=== PATIENT | female | born 1955 | race Caucasian/White ===

== ENCOUNTER 2020-10-08 08:17 | Outpatient (CLI) | payer OTHER, MEDICARE, SELFPAY ==
--- NOTE | ~2020-10-08 | MM_ITS ---
EXAMINATION: MM screening charlie BI w nisha HISTORY: Screening TECHNIQUE: Craniocaudal and mediolateral oblique 3-D tomosynthesis images were obtained and synthetic 2-D images were generated. CAD analysis was submitted and interpreted. COMPARISON: No prior mammogram is available for comparison at this institution. BREAST PARENCHYMAL COMPOSITION: There are scattered areas of fibroglandular density. FINDINGS: There is no evidence of suspicious mass, calcification, or architectural distortion to sugg est malignancy in either breast. There has been no suspicious interval change. IMPRESSION: 1. No mammographic evidence of malignancy. 2. Recommend routine screening mammography in one year. BI-RADS Category 1: Negative Reviewed, dictated and finalized at location B. NCIAL RECRUITER
== END 2020-10-08 08:18 | disposition home or self-care (01) ==
LOC: ANHIMG 08:23
PROVIDERS: PCP Internal Medicine; Visit Provider Obstetrics & Gynecology
DX: Z12.31 Encounter for screening mammogram for malignant neoplasm of breast (principal)
CPT/HCPCS: 77063; 77067

== ENCOUNTER → 2021-05-01 07:41 | Outpatient (CLI) | payer OTHER, MEDICARE, SELFPAY ==
--- NOTE | ~2021-05-01 | US_ITS ---
EXAMINATION: US aorta [facility] DATE: 05/01/2021 08:08 INDICATION: Hypercholesterolemia, abdominal aortic aneurysm screening TECHNIQUE: Grayscale, color Doppler, and pulsed Doppler images of the aorta and common iliac arteries were obtained. COMPARISON: None. FINDINGS: Maximum vascular dimensions are as follows: Proximal aorta: 2.2 cm Mid aorta: 1.4 cm Distal aorta: 1.3 cm Right common iliac artery: 1.1 cm Left common iliac artery: 0.9 cm There is no evidence of abdominal aortic aneurysm. IMPRESSION: 1. No sonographically detected abdominal aortic aneurysm. Reviewed, dictated and finalized at location A.
== END ==
PROVIDERS: PCP Internal Medicine; Visit Provider Internal Medicine
DX: Z13.6 Encounter for screening for cardiovascular disorders (principal)
CPT/HCPCS: 76706

== ENCOUNTER 2021-05-01 08:30 | Outpatient (CLI) | payer OTHER, MEDICARE, SELFPAY ==
--- NOTE | 2021-05-01 08:46 | ECG_ITS ---
Measurements Intervals [place] Rate: 63 P: 35 CT: 176 QRS: 51 QRSD: 97 T: 36 QT: 385 QTc: 394 Interpretive Statements SINUS RHYTHM BASELINE ARTIFACT- I, II, III, AVR, AVL NORMAL ECG Electronically Signed On 05-01-2021 9:08:20 CDT by Ric Richardson D.O.
== END 2021-05-01 08:31 | disposition home or self-care (01) ==
LOC: ANHCARD 08:36
PROVIDERS: PCP Internal Medicine; Visit Provider Internal Medicine
DX: Z00.00 Encounter for general adult medical examination without abnormal findings (principal)
CPT/HCPCS: 93005

== ENCOUNTER 2022-01-02 20:52 | Emergency (ER) | payer OTHER, SELFPAY ==
--- NOTE | ~2022-01-02 | XR_ITS ---
EXAMINATION: XR chest 2V DATE: 01/02/2022 22:01 INDICATION: Transient alteration of awareness TECHNIQUE: PA and lateral views of the chest are obtained. COMPARISON: None available FINDINGS: The lungs are free of acute opacities. There is no pleural effusion or pneumothorax. There is a moderate-sized hiatal hernia. The heart size is normal. There is mild thoracic spondylosis. IMPRESSION: 1. No acute cardiopulmonary abnormality. 2. Moderate-sized hiatal hernia. Reviewed, dictated and finalized at location A.
[2022-01-02 20:58] VITALS: BP 131/80; PULSE 98; RESP 17; TEMP 36.6; O2SAT 96
--- NOTE | 2022-01-02 21:03 | ECG_ITS ---
Measurements Intervals [place] Rate: 82 P: 41 MN: 170 QRS: 54 QRSD: 105 T: 31 QT: 375 QTc: 441 Interpretive Statements SINUS RHYTHM NORMAL ECG Electronically Signed On 01-03-2022 8:50:56 CDT by Ric Richardson D.O.
--- NOTE | 2022-01-02 21:05 | ED.SYNCOPE ---
HPI - Syncope General Chief Complaint: Syncope Stated Complaint: syncopal episode x 2 orthostatic Time Seen by Provider: 01/02/22 20:56 History of Present Illness HPI narrative: 66-year-old female presents to the emergency room for evaluation of 2 syncopal episodes prior to arrival. Patient states that she was eating dinner with her family when she attempted to stand up and then she proceeded to pass out. Several minutes later patient was on the floor complaining of being nauseated, when she attempted to set up and again passed out. Patient states that following her episode of emesis, she felt better. Patient does not have any complaints at this time. Patient does state that she has a history of similar episodes. Related Data Allergies Allergy/AdvReac Type Severity Reaction Status Date / Time No Known Allergies Allergy Verified 01/02/22 21:02 Review of Systems Review of Systems: CONSTITUTIONAL: Denies fever, chills, or sweats. EYES: Denies visual changes, redness, or discharge. ENT: Denies rhinorrhea, congestion, sore throat, or otalgia. CARDIOVASCULAR: Denies chest pain, palpitations, or edema. RESPIRATORY: Denies cough or dyspnea. GASTROINTESTINAL: Denies abdominal pain, nausea, vomiting, or diarrhea. GENITOURINARY: Denies dysuria or hematuria. SKIN: Denies rash or itching. MUSCULOSKELETAL: Denies back pain, joint pain, or myalgia. NEUROLOGIC: Denies headache, numbness, dizziness, or weakness. PSYCHIATRIC: Denies anxiety or depression. [facility] Surgical History Surgical History H/O vaginal hysterectomy Family History Family History Mother , Age 80 - Alzheimer's Disease No problems noted. Father , Age 78 - Myocardial Infarction No problems noted. Grandparent , - Myocardial Infarction No problems noted. Grandparent , - Myocardial Infarction No problems noted. Grandparent , Age 80 - Alzheimer's Disease No problems noted. Grandparent , - Myocardial Infarction No problems noted. Sibling , Age 42 - Myocardial Infarction No problems noted. Sibling , Age 57 - Cancer No problems noted. Social History Social History (Reviewed 01/02/22 @ 21:06 by DAVID Eastman Smoking status: Never smoker Alcohol intake: current Drinks per week: 1 Alcohol use details: drinks beer/wine Substance use: never Exam Narrative: GENERAL: Well-appearing, well-nourished, and in no acute distress. HEAD: Normocephalic, atraumatic. EYES: PERRLA and EOMI. ENT: Nares clear, no rhinorrhea or epistaxis. Mucous membranes moist. CHEST: Clear to auscultation. No respiratory distress. No wheezes rales or rhonchi HEART: Regular rate and rhythm. No murmur heard. Normal peripheral pulses. ABDOMEN: Soft, nontender, nondistended, normal active bowel sounds. EXTREMITIES: Normal range of motion. No edema. SKIN: Warm, dry, no rash. NEURO: No focal deficits. Alert and oriented x3. PSYCH: Normal mood and affect. Course Vital Signs Vital signs: Vital Signs Temperature 36.6 C 01/02/22 20:58 Pulse Rate 98 01/02/22 20:58 Respiratory Rate 17 01/02/22 20:58 Blood Pressure 131/80 01/02/22 20:58 Pulse Oximetry 96 01/02/22 20:58 Temperature 36.6 C 01/02/22 20:58 Pulse Rate 98 01/02/22 20:58 Respiratory Rate 17 01/02/22 20:58 Blood Pressure 131/80 01/02/22 20:58 Pulse Oximetry 96 01/02/22 20:58 MDM - Syncope MDM Narrative Medical decision making narrative: 66-year-old female presented the emergency room with for evaluation of x2 syncopal episodes. Patient states that she had been experiencing some upper respiratory symptoms over the past couple of days. CBC and CMP were unremarkable. Trop
[2022-01-02 21:55] LABS: Basophils Percent Auto 0.3 % (0.2-1.2); Eosinophils Absolute Auto 0.2 K/mm3 (0-0.3); Eosinophils Percent Auto 2.1 % (0-4.4); Hematocrit 38.6 % (37.0-47.0); Hemoglobin 12.3 g/dL (12.0-15.0); Immature Granulocyte Absolute 0.02 K/mm3 (0.00-0.031); Immature Granulocyte Percent A 0.3 % (0-0.5); Lymphocytes Absolute Auto 1.16 K/mm3 (0.9-3.2); Lymphocytes Percent Auto 14.9 % (18.3-44.2); Mean Corpuscular HGB Conc 31.9 g/dl (32-36); Mean Corpuscular Hemoglobin 30.5 pg (26-34); Mean Corpuscular Volume 95.8 fl (80-100); Mean Platelet Volume 10.1 fl (7.4-10.4); Monocytes Absolute Auto 0.6 K/mm3 (0.1-0.6); Monocytes Percent Auto 7.3 % (2.6-8.5); Neutrophils Absolute Auto 5.8 K/mm3 (1.3-6.7); Neutrophils Percent Auto 75.1 % (45.5-73.1); Platelet Count Result 198 k/mm3 (150-375); Red Blood Count 4.03 M/mm3 (4.2-5.4); Red Cell Distribution Width 12.7 % (11.5-14.5); White Blood Count 7.8 K/mm3 (4.5-10.0)
[2022-01-02 22:04] LABS: Alanine Aminotransferase 15 U/L (4-35); Albumin Level 3.8 g/dL (3.5-5.1); Alkaline Phosphatase 125 U/L (38-126); Anion Gap 7 mmol/L (8-16); Aspartate Amino Transferase 25 U/L (14-36); Bilirubin,Total 0.5 mg/dL (0.2-1.3); Blood Urea Nitrogen 18 mg/dL (7-17); Calcium 7.7 mg/dL (8.4-10.2); Carbon Dioxide 23 mmol/L (22-30); Chloride 106 mmol/L (98-107); Estimated Glomerular Filt Rate > 60; Glucose 111 mg/dL (65-110); Potassium 3.6 mmol/L (3.4-5.0); Sodium 136 mmol/L (137-145)
[2022-01-02 22:16] LABS: Troponin I < 0.012 ng/mL (0.000-0.034)
[2022-01-02] MEDS: DOXYCYCLINE HYCLATE 100 MG TABLET PO (22:39)
[2022-01-02 22:46] VITALS: BP 145/75; PULSE 90; RESP 20; O2SAT 95
== END 2022-01-02 22:48 | disposition home or self-care (01) ==
PROVIDERS: Emergency Provider Nurse Practitioner Family; PCP Internal Medicine
DX: J18.9 Pneumonia, unspecified organism (principal)
CPT/HCPCS: 36415; 71046; 80053; 84484; 85025; 93005; 99284; A9270

== ENCOUNTER → 2022-01-11 12:01 | Outpatient (CLI) | payer OTHER, SELFPAY ==
--- NOTE | ~2022-01-11 | XR_ITS ---
XR chest 2V 01/11/2022 12:10 Indication: Shortness of breath Procedure: 2 view chest Comparison: 01/02/2022 Findings: Heart size normal. There is a moderate size hiatal hernia. No focal air space disease, pulm onary edema, pleural effusion or suspected pneumothorax. Impression: 1: No acute cardiopulmonary disease. 2: Moderate size hiatal hernia. Reviewed, dictated and finalized at location A. Impression: 1: No acute cardiopulmonary disease. 2: Moderate size hiatal hernia.
== END ==
PROVIDERS: PCP Internal Medicine; Visit Provider Internal Medicine
DX: R91.8 Other nonspecific abnormal finding of lung field (principal); K44.9 Diaphragmatic hernia without obstruction or gangrene
CPT/HCPCS: 71046

== ENCOUNTER 2022-05-28 08:02 | Outpatient (CLI) | payer OTHER, SELFPAY ==
[2022-05-28 21:09] LABS: Cholesterol 196 mg/dL (0-200); HDL Direct 65 mg/dL; Triglycerides 66 mg/dL (<150)
[2022-05-28 21:20] LABS: LDL Cholesterol Direct 101 mg/dL
== END 2022-05-28 08:03 | disposition home or self-care (01) ==
PROVIDERS: PCP Family Medicine; Visit Provider Family Medicine
DX: E78.5 Hyperlipidemia, unspecified (principal); E04.1 Nontoxic single thyroid nodule
CPT/HCPCS: 36415; 80061; 84443

== ENCOUNTER → 2022-05-28 08:13 | Outpatient (CLI) | payer OTHER, SELFPAY ==
--- NOTE | ~2022-05-28 | US_ITS ---
US thyroid INDICATION: Thyroid nodule TECHNIQUE: Real-time sonographic images of the thyroid gland were obtained. COMPARISON: No prior studies for comparison. FINDINGS: The right thyroid lobe measures 2.9 x 1 x 1.1 cm. The left thyroid lobe measures 3.9 x 1.7 x 1.9 cm. There are multiple bilateral thyroid nodules. Largest in the right lobe measures 10 x 9 x 7 mm and is hypoechoic, solid, wider than tall with smooth margins and no internal echogenic foci, TR 4. Largest dominant mass in the isthmus measures 2.2 x 1.8 x 0.8 cm and is solid, hypoechoic, wider than tall, smoothly marginated with no echogenic foci, TR 4. In the left lobe there is an oval 2.6 x 1.9 x 1.5 cm slightly hyperechoic mass which is wider than tall, irregular margins without echogenic foci, TR 4. IMPRESSION: 1. Masses in the left margin of the isthmus and the left thyroid lobe which may sonographic criteria for biopsy. Ultrasound-guided fine-needle aspiration recommended. Reviewed, dictated and finalized at location B. IMPRESSION: 1. Masses in the left margin of the isthmus and the left thyroid lobe which ma y sonographic criteria for biopsy. Ultrasound-guided fine-needle aspiration rec ommended.
== END ==
PROVIDERS: PCP Family Medicine; Visit Provider Family Medicine
DX: E04.1 Nontoxic single thyroid nodule (principal)
CPT/HCPCS: 76536

== ENCOUNTER 2022-06-08 12:22 | Outpatient (CLI) | payer OTHER, SELFPAY ==
--- NOTE | ~2022-06-08 | US_ITS ---
EXAMINATION: 1. US FNA w image guidance 2. US FNA additional DATE: 06/08/2022 14:52 INDICATION: Nontoxic single thyroid nodule. TECHNIQUE: The procedure and its benefits and risks were discussed with the patient. Risks specifically discusse d included bleeding. The patient verbalized understanding of the risks and agreed to proceed. The nec k was prepped and draped in the usual sterile manner. 1% lidocaine was used for local anesthesia. 6 passes were made with a 25G needle into the lesion in left thyroid lobe under ultrasound guidance. T he patient experienced nausea and vomiting. When the patient was feeling better, the neck was again prepped and draped in usual manner. 6 passes were made with a 25-gauge needle into the lesion in thyroid isthmus under ultrasound guidance. There were no immediate complications. FINDINGS: Grayscale ultrasound images demonstrate needles advanced into a 2.6 cm nodule in left thyroid lobe fo r biopsy. Grayscale images demonstrate needles advanced into a 2.2 cm nodule in thyroid isthmus for b iopsy. IMPRESSION: 1. Ultrasound-guided fine needle aspiration of a nodule in left thyroid lobe. 2. Ultrasound-guided fine-needle aspiration of a nodule in thyroid isthmus. Reviewed, dictated and finalized at location A. IMPRESSION: 1. Ultrasound-guided fine needle aspiration of a nodule in left thyroid lobe. 2. Ultrasound-guided fine-needle aspiration of a nodule in thyroid isthmus.
== END 2022-06-08 12:23 | disposition home or self-care (01) ==
PROVIDERS: PCP Family Medicine; Visit Provider Family Medicine
DX: E04.2 Nontoxic multinodular goiter (principal)
CPT/HCPCS: 10005; 10006; 88173; 88305

== ENCOUNTER 2022-06-21 07:51 | Outpatient (CLI) | payer OTHER, SELFPAY | END 2022-06-21 07:52 | disposition home or self-care (01) | LOC: ANHAUDASC 07:52 | PROVIDERS: PCP Family Medicine; Visit Provider Family Medicine | DX: H93.19 Tinnitus, unspecified ear (principal); H90.3 Sensorineural hearing loss, bilateral | CPT/HCPCS: 92557; 92567 ==

== ENCOUNTER 2022-07-28 01:26 | Day surgery (SDC) | payer OTHER, SELFPAY ==
[2022-07-13 11:03] VITALS: BMI 27.5
--- NOTE | 2022-07-27 07:27 | PM.HPGS ---
History of Present Illness History of Present Illness Consent: Risks, benefits, and alternatives have been discussed and questions answered. Patient agrees to proceed with procedure. Chief complaint: neoplasm screening Narrative: Mireya Duarte is a 67 year old female Referred for colon cancer screening. This is her 1st colonoscopy. Review of Systems Review of Systems: All systems reviewed & are unremarkable except as noted in HPI and below PMFSH Past Medical History Medical History HTN (hypertension) Hyperlipidemia LDL goal <130 Surgical History Surgical History H/O vaginal hysterectomy Family History Family History Mother , Age 80 - Alzheimer's Disease No problems noted. Father , Age 78 - Myocardial Infarction No problems noted. Grandparent , - Myocardial Infarction No problems noted. Grandparent , - Myocardial Infarction No problems noted. Grandparent , Age 80 - Alzheimer's Disease No problems noted. Grandparent , - Myocardial Infarction No problems noted. Sibling , Age 42 - Myocardial Infarction No problems noted. Sibling , Age 57 - Cancer No problems noted. Social History Social History Smoking status: Never smoker Alcohol intake: current Drinks per week: 1 Alcohol use details: drinks beer/wine Substance use: never Substance use type: does not use Living arrangements: with family Spiritual care concerns: No Meds Home Medications and Allergies Home Medications Medication Instructions Recorded Confirmed Type alendronate 70 mg tablet 70 mg PO WEEKLY #12 tabs 12/11/21 07/28/22 Rx lovastatin 20 mg tablet See Rx Instructions .Route 06/21/22 07/28/22 Rx .COMPLEX #90 tabs amlodipine 5 mg tablet 5 mg PO DAILY #30 tabs 06/22/22 07/28/22 Rx Calcium-Vitamin D 1 tab-cap PO DAILY 07/13/22 07/28/22 History L-Lysine Complex 1 tab-cap PO DAILY 07/13/22 07/28/22 History psyllium husk 0.4 gram capsule 0.4 g PO DAILY 07/13/22 07/28/22 History (Metamucil) Allergies Allergy/AdvReac Type Severity Reaction Status Date / Time No Known Allergies Allergy Verified 07/28/22 06:21 Exam Const: General: alert Orientation/consciousness: patient oriented x3 Resp: Auscultation: clear to auscultation bilaterally Cardio: Rhythm: regular rhythm GI: GI Palp: Yes Soft to palpation and No Tenderness to palpation present (GI) Neuro: General: patient oriented x3 Assessment and Plan Assessment and plan (1) Colon cancer screening: Code(s): Z12.11 - Encounter for screening for malignant neoplasm of colon Status: Acute Assessment and Plan: Colonoscopy with possible biopsy or polypectomy or cautery or injection of substances.
[2022-07-28 06:22] VITALS: BP 129/73; PULSE 81; RESP 16; TEMP 36.2; O2SAT 98
[2022-07-28] MEDS: LACTATED RINGERS 1,000 ML 150 ML IV CONT (06:24)
--- NOTE | 2022-07-28 07:10 | WPDANESEPPF ---
Anes - Initial Pre Proc Eval Procedure: Operation Date: 07/28/22 07:30 Proposed Procedures p Screening Colonoscopy - Nik Tarango MD Date/Time: 07/28/22 07:10 Surgeon: Nik Tarango MD Pre Op Diagnosis: neoplasm screening Patient Data Age: 67 Gender: F Height: 1.55 m Weight: 67.8 kg Last Vital Signs Temp 36.2 C L 07/28/22 06:22 Pulse 81 07/28/22 06:22 Resp 16 07/28/22 06:22 BP 129/73 07/28/22 06:22 Pulse Ox 98 07/28/22 06:22 O2 Del Method Room Air 07/28/22 06:22 Allergies Allergy/AdvReac Type Severity Reaction Status Date / Time No Known Allergies Allergy Verified 07/28/22 06:21 Home Medications Medication Instructions Recorded Confirmed Type alendronate 70 mg tablet 70 mg PO WEEKLY #12 tabs 12/11/21 07/28/22 Rx lovastatin 20 mg tablet See Rx Instructions .Route 06/21/22 07/28/22 Rx .COMPLEX #90 tabs amlodipine 5 mg tablet 5 mg PO DAILY #30 tabs 06/22/22 07/28/22 Rx Calcium-Vitamin D 1 tab-cap PO DAILY 07/13/22 07/28/22 History L-Lysine Complex 1 tab-cap PO DAILY 07/13/22 07/28/22 History psyllium husk 0.4 gram capsule 0.4 g PO DAILY 07/13/22 07/28/22 History (Metamucil) Patient hx anesthesia problems: none Family hx anesthesia problems: none Results Review: All pre-operative results and documents have been reviewed as part of the pre-operative evaluation. [facility] Past Medical History Medical History (Updated 07/28/22 @ 07:12 by Jose Mcneill MD) HTN (hypertension) Hyperlipidemia LDL goal <130 Surgical History Surgical History H/O vaginal hysterectomy Family History Family History Mother , Age 80 - Alzheimer's Disease No problems noted. Father , Age 78 - Myocardial Infarction No problems noted. Grandparent , - Myocardial Infarction No problems noted. Grandparent , - Myocardial Infarction No problems noted. Grandparent , Age 80 - Alzheimer's Disease No problems noted. Grandparent , - Myocardial Infarction No problems noted. Sibling , Age 42 - Myocardial Infarction No problems noted. Sibling , Age 57 - Cancer No problems noted. Social History Social History Smoking status: Never smoker Alcohol intake: current Drinks per week: 1 Alcohol use details: drinks beer/wine Substance use: never Substance use type: does not use Living arrangements: with family Spiritual care concerns: No Anes - Eval Final PreProcedure Day of Procedure 07/28/22 07:10 Patient weight: overweight Heart: regular rate and rhythm Lungs: clear to auscultation and normal air movement Airway: Mallampati scale class II Neurological: alert and oriented Last oral intake: >/= 8 hours ASA classification: II Emergent: no Anesthetic plan: proceed Anesthesia type and monitoring: general GIVS Results Review: All pre-operative results and documents have been reviewed as part of the pre-operative evaluation. Informed Consent: The patient's anesthetic plan and its attendant risks and benefits were discussed with the patient/family/POA. Questions were solicited and answers provided to the satisfaction of the patient/family/POA.
[2022-07-28 08:00] VITALS: BP 104/62; PULSE 73; RESP 23; O2SAT 100
[2022-07-28 08:10] VITALS: BP 116/72; PULSE 70; RESP 18; O2SAT 100
[2022-07-28 08:20] VITALS: BP 118/76; PULSE 69; RESP 21; O2SAT 100
== END 2022-07-28 08:26 | disposition home or self-care (01) ==
PROVIDERS: PCP Family Medicine; Visit Provider Internal Medicine Gastroenterology
PROC: 0DJD8ZZ Inspection of Lower Intestinal Tract, Via Natural or Artificial Opening Endoscopic (ICD-10-PCS; CPT 45378; principal; 2022-07-28 07:30)
DX: Z12.11 Encounter for screening for malignant neoplasm of colon (principal); D12.3 Benign neoplasm of transverse colon; K57.30 Diverticulosis of large intestine without perforation or abscess without bleeding; K64.8 Other hemorrhoids; I10 Essential (primary) hypertension; E78.5 Hyperlipidemia, unspecified
CPT/HCPCS: 45380; 88305; J2704; J7120

== ENCOUNTER 2023-05-05 15:14 | Outpatient (CLI) | payer OTHER, SELFPAY ==
[2023-05-05 19:05] LABS: Basophils Percent Auto 0.4 % (0.2-1.2); Eosinophils Absolute Auto 0.2 K/mm3 (0-0.3); Eosinophils Percent Auto 2.6 % (0-4.4); Hematocrit 30.4 % (37.0-47.0); Immature Granulocyte Absolute 0.02 K/mm3 (0.00-0.031); Immature Granulocyte Percent A 0.3 % (0-0.5); Lymphocytes Absolute Auto 1.66 K/mm3 (0.9-3.2); Lymphocytes Percent Auto 22.5 % (18.3-44.2); Mean Corpuscular HGB Conc 29.6 g/dl (32-36); Mean Corpuscular Hemoglobin 23.2 pg (26-34); Mean Corpuscular Volume 78.4 fl (80-100); Mean Platelet Volume 10.6 fl (7.4-10.4); Monocytes Absolute Auto 0.6 K/mm3 (0.1-0.6); Monocytes Percent Auto 8.1 % (2.6-8.5); Neutrophils Absolute Auto 4.9 K/mm3 (1.3-6.7); Neutrophils Percent Auto 66.1 % (45.5-73.1); Platelet Count Result 378 k/mm3 (150-375); Red Blood Count 3.88 M/mm3 (4.2-5.4); Red Cell Distribution Width 15.2 % (11.5-14.5); White Blood Count 7.4 K/mm3 (4.5-10.0)
[2023-05-05 19:07] LABS: Alanine Aminotransferase 21 U/L (6-35); Albumin Level 4.1 g/dL (3.5-5.1); Alkaline Phosphatase 101 U/L (38-126); Anion Gap 9 mmol/L (8-16); Aspartate Amino Transferase 36 U/L (14-36); Bilirubin,Total 0.6 mg/dL (0.2-1.3); Blood Urea Nitrogen 17 mg/dL (7-17); Calcium 9.2 mg/dL (8.4-10.2); Carbon Dioxide 27 mmol/L (22-30); Chloride 104 mmol/L (98-107); Cholesterol 188 mg/dL (0-200); Estimated Glomerular Filt Rate > 60; Glucose 108 mg/dL (65-110); HDL Direct 69 mg/dL; Sodium 140 mmol/L (137-145); Triglycerides 53 mg/dL (<150)
[2023-05-05 19:18] LABS: LDL Cholesterol Direct 84 mg/dL
[2023-05-05 19:39] LABS: Hypochromasia 1+ (NORMAL)
[2023-05-05 19:40] LABS: Ovalocytes 1+ (NORMAL); Schistocytes None Seen (NORMAL)
[2023-05-05 19:41] LABS: Appearance Urine Clear (Clear); Bacteria Urine None Seen /hpf; Bilirubin Urine Negative (Negative); Blood Urine Negative (Negative); Color Urine Yellow (Yellow); Glucose Urine UA Negative (Negative); Ketones Urine Negative (Negative); Leukocyte Esterase Ur 2+ LEU/UL (NEGATIVE); Need Manual Microscopic Reviewed; Nitrate Urine Negative (Negative); Non Pathogenic Casts 0-2; Protein Urine Negative (Negative); RBC Urine 0-2 /hpf (0-2); Specific Grav Ur 1.004 (1.001-1.035); Squamous Epithelial Cell Urine None seen /hpf (Few); Urobilinogen Urine 0.2 mg/dL (<2.0)
[2023-05-05 19:43] LABS: Add Urine Microscopic? YES
== END 2023-05-05 15:15 | disposition home or self-care (01) ==
LOC: ANHGOSHLAB 15:15
PROVIDERS: PCP Family Medicine; Visit Provider Family Medicine
DX: R53.83 Other fatigue (principal); R55 Syncope and collapse; Z13.228 Encounter for screening for other metabolic disorders; Z13.29 Encounter for screening for other suspected endocrine disorder; Z13.220 Encounter for screening for lipoid disorders
CPT/HCPCS: 36415; 80053; 80061; 81001; 84443; 85025

== ENCOUNTER 2023-05-06 12:43 | Outpatient (CLI) | payer OTHER, SELFPAY ==
[2023-05-06 18:56] LABS: Immature Reticulocyte Fraction 26.6 % (3.0-15.9); Reticulocyte Hemoglobin Conten 23.3 pg (28.2-35.7); Reticulocyte Percent 2.22 % (0.7-4.3); Reticulocytes Absolute 0.08 M/mm3 (0.02-0.1)
[2023-05-06 19:09] LABS: Iron 27 ug/dL (37-170)
[2023-05-06 19:25] LABS: Percent Iron Saturation 4 % (20-50)
[2023-05-06 19:43] LABS: Ferritin 4.74 ng/mL (11.1-264)
[2023-05-06 20:25] LABS: Folic Acid > 20.0 ng/mL (2.76->20)
== END 2023-05-06 12:44 | disposition home or self-care (01) ==
LOC: ANHGOSHLAB 12:45
PROVIDERS: PCP Family Medicine; Visit Provider Family Medicine
DX: D64.9 Anemia, unspecified (principal)
CPT/HCPCS: 36415; 82607; 82728; 82746; 83540; 83550; 85046

== ENCOUNTER 2023-05-09 08:33 | Outpatient (NON) | payer OTHER, SELFPAY ==
[2023-05-09 19:28] LABS: IFOB Positive Control Positive; Immunochemical Fecal Occult Bl Negative (N)
== END 2023-05-09 08:34 | disposition home or self-care (01) ==
PROVIDERS: PCP Family Medicine; Visit Provider Family Medicine
DX: D64.9 Anemia, unspecified (principal)
CPT/HCPCS: 82274

== ENCOUNTER 2023-05-13 13:37 | Outpatient (CLI) | payer OTHER, SELFPAY ==
--- NOTE | ~2023-05-13 | MR_ITS ---
EXAMINATION: MR brain/brain stem wo/w con DATE: 05/13/2023 14:17 INDICATION: Syncope and collapse. TECHNIQUE: Magnetic resonance imaging (MRI) of the brain and brainstem was performed without and with 13 mL MultiHance intravenous contrast. COMPARISON: None. FINDINGS: There are scattered areas of nonspecific increased T2-weighted signal intensity in the cere bral white matter and lucy, which is within normal limits for the patient's age. There is no intracra nial hemorrhage, acute infarction, or abnormal intracranial mass lesion. The ventricles are normal in size. The paranasal sinuses are clear. The orbits are normal. There are small bilateral mastoid effu sions. IMPRESSION: 1. Normal aging brain. Reviewed, dictated and finalized at location E. IMPRESSION: 1. Normal aging brain.
== END 2023-05-13 13:38 | disposition home or self-care (01) ==
PROVIDERS: PCP Family Medicine; Visit Provider Family Medicine
DX: R55 Syncope and collapse (principal)
CPT/HCPCS: 70553; A9577

== ENCOUNTER 2023-05-23 11:19 | Outpatient (CLI) | payer OTHER, SELFPAY ==
[2023-05-23 19:54] LABS: Basophils Percent Auto 0.3 % (0.2-1.2); Eosinophils Absolute Auto 0.1 K/mm3 (0-0.3); Hematocrit 34.8 % (37.0-47.0); Hemoglobin 10.2 g/dL (12.0-15.0); Immature Granulocyte Absolute 0.02 K/mm3 (0.00-0.031); Immature Granulocyte Percent A 0.3 % (0-0.5); Lymphocytes Absolute Auto 1.59 K/mm3 (0.9-3.2); Lymphocytes Percent Auto 22.4 % (18.3-44.2); Mean Corpuscular HGB Conc 29.3 g/dl (32-36); Mean Corpuscular Hemoglobin 24.9 pg (26-34); Mean Corpuscular Volume 85.1 fl (80-100); Mean Platelet Volume 11.3 fl (7.4-10.4); Monocytes Absolute Auto 0.6 K/mm3 (0.1-0.6); Monocytes Percent Auto 8.3 % (2.6-8.5); Neutrophils Absolute Auto 4.7 K/mm3 (1.3-6.7); Neutrophils Percent Auto 66.7 % (45.5-73.1); Platelet Count Result 306 k/mm3 (150-375); Red Blood Count 4.09 M/mm3 (4.2-5.4); Red Cell Distribution Width 24.7 % (11.5-14.5); White Blood Count 7.1 K/mm3 (4.5-10.0)
[2023-05-23 20:05] LABS: Anisocytosis 1+ (NORMAL); Hypochromasia 1+ (NORMAL); Ovalocytes 1+ (NORMAL); Platelet Estimate Adequate (Adequate); Schistocytes None Seen (NORMAL)
== END 2023-05-23 11:20 | disposition home or self-care (01) ==
LOC: ANHGOSHLAB 11:21
PROVIDERS: PCP Family Medicine; Visit Provider Family Medicine
DX: D64.9 Anemia, unspecified (principal)
CPT/HCPCS: 36415; 85025

== ENCOUNTER 2023-05-23 15:45 | Outpatient (CLI) | payer OTHER, SELFPAY ==
--- NOTE | ~2023-05-23 | US_ITS ---
EXAMINATION: US carotid duplex BI DATE: 05/23/2023 16:41 INDICATION: Syncope. Dizziness. TECHNIQUE: Grayscale, color Doppler, and pulsed Doppler images of the cervical carotid arteries were obtained. The degree of vessel stenosis is placed in one of the following categories: normal, <50%, 5 0-69%, >=70% but less than near-occlusion, near-occlusion, or total occlusion. Note that percent sten osis relative to normal distal artery lumen diameter is indirectly measured from velocity measurement s as described by Mikie, et al. Radiology 2003; 229:340-346. Notes: Normal: Peak systolic velocity <125 centimeters/sec and no plaque <50%. Peak systolic velocity <125 ( EDV <40; ICA/CCA PSV ratio <2.0; used these factors only a tandem lesions or low cardiac output or co ntralateral disease) 50-69 %: PSV 125-230 (EDV 40-100; ratio 2-4) >= 70% but less than near occlusion: PSV greater than 230 (EDV > 100; ratio> 4.0) Near Occlusion: PSV that is variable; markedly narrowed lumen Occlusion: Absent flow on color/spectral Doppler and no lumen on moise scale. COMPARISON: None. FINDINGS: RIGHT: The right common carotid artery (CCA) peak systolic velocity (PSV) is 93 cm/s. The right internal car otid artery (ICA) PSV is 118 cm/s. The right ICA end-diastolic velocity (EDV) is 50 cm/s. The right I CA/CCA PSV ratio is 1.3. The external carotid artery (ECA) PSV is 67 cm/s. There is antegrade flow in the right vertebral artery. LEFT: The left CCA PSV is 74 cm/s. The left ICA PSV is 121 cm/s. The left ICA EDV is 44 cm/s. The left ICA/ CCA PSV ratio is 1.6. The ECA PSV is 79 cm/s. There is antegrade flow in the left vertebral artery. IMPRESSION: 1. Less than 50% stenosis in the right internal carotid artery by sonographic criteria. 2. Less than 50% stenosis in the left internal carotid artery by sonographic criteria. Reviewed, dictated and finalized at location B. IMPRESSION: 1. Less than 50% stenosis in the right internal carotid artery by sonographic c willam. 2. Less than 50% stenosis in the left internal carotid artery by sonographic jose alejandro silva.
== END 2023-05-23 15:46 | disposition home or self-care (01) ==
LOC: ANHIMG 15:46
PROVIDERS: PCP Family Medicine; Visit Provider Family Medicine
DX: R55 Syncope and collapse (principal); I65.23 Occlusion and stenosis of bilateral carotid arteries
CPT/HCPCS: 36415; 85025; 93880

== ENCOUNTER 2023-09-09 14:43 | Outpatient (CLI) | payer OTHER, SELFPAY ==
--- NOTE | ~2023-09-09 | MM_ITS ---
EXAMINATION: MM screening charlie BI w nisha HISTORY: Screening mammogram TECHNIQUE: Craniocaudal and mediolateral oblique 3-D tomosynthesis images were obtained and synthetic 2-D images were generated. CAD analysis was submitted and interpreted. COMPARISON: 10/08/2020 BREAST PARENCHYMAL COMPOSITION: There are scattered areas of fibroglandular density. FINDINGS: No suspicious mass, calcification, or architectural distortion are identified in either demetria ast to suggest malignancy. There has been no suspicious interval change. IMPRESSION: 1. No mammographic evidence of malignancy. 2. Recommend routine screening mammography in one year. BI-RADS Category 1: Negative Reviewed, dictated and finalized at location A. QUE REFINISHER
== END 2023-09-09 14:44 | disposition home or self-care (01) ==
LOC: ANHIMG 14:56
PROVIDERS: PCP Family Medicine; Visit Provider Family Medicine
DX: Z12.31 Encounter for screening mammogram for malignant neoplasm of breast (principal)
CPT/HCPCS: 77063; 77067

== ENCOUNTER 2023-10-03 08:45 | Outpatient (CLI) | payer OTHER, SELFPAY ==
--- NOTE | ~2023-10-03 | DEXA_ITS ---
Bone Density Report Name: MARLENY MCKEON Age: 68 Sex: Female Ethnicity: White Date of : 1955 Indication: postmenopausal; screening for osteoporosis; height loss; hysterectomy; Referring Provider: DONNY SELBY Study: Bone densitometry was performed. Exam Date: October 03, 2023 Accession number: [id number] Bone Density: Region BMD T-score Z-score Classification AP Spine(L1-L4) 1.030 -0.2 1.8 Normal Femoral Neck (Left) 0.561 -2.6 -0.9 Osteoporosis Total Hip (Left) 0.847 -0.8 0.6 Normal Femoral Neck (Right) 0.616 -2.1 -0.4 Osteopenia Total Hip (Right) 0.854 -0.7 0.7 Normal Total Hip Mean 0.850 -0.8 0.7 Normal World Health Organization criteria for BMD impression classify patients as: Normal (T-score at or above -1.0), Osteopenia (T-score between -1.0 and -2.5), or Osteoporosis (T-score at or below -2.5). 10-year Fracture Risk: FRAX not reported because: Some T-score for Spine Total or Hip Total or Femoral Neck at or below -2.5 Clinical Information Provided by Patient: Has used the following medications: Vitamin D, Calcium Has the following medical conditions: Hysterectomy Patient maximum height was 61 No regular weight bearing exercise Drinks caffeinated beverages Onset of menses at age 16 Number of children 1 Impression: The patient has osteoporosis, based on the Left Femoral Neck T-score. Discussion: INCREASED RISK OF FRACTURE. BONE DENSITY IS UNDESIRABLY LOW AT ONE OR MORE SKELETAL SITES, CONSISTENT WITH POSTMENOPAUSAL OSTEOPOROSIS. This patient's lowest T-score meets the World Health Organization's (WHO) criteria for osteoporosis at one or more sites (T-score -2.5 or below). In untreated patients, the risk of osteoporotic fracture increases approximately two-fold for each 1.0 SD decrease in T-score. Low bone density is not the only risk factor for fracture; also consider factors such as patient's age, frailty or poor health, risk of falling, risk of injury, previous osteoporotic fracture, family history of osteoporosis, cigarette smoking, low body weight, etc. Not everyone with low bone mineral density has osteoporosis; osteomalacia and other metabolic bone disorders should also be considered. Patients who have osteoporosis should be evaluated for specific diseases and conditions (secondary causes) that may cause or contribute to bone loss. The [place] [employer]ocrinologists (AACE) and National Osteoporosis Foundation (NOF) recommend pharmacologic intervention for all postmenopausal women whose T-score is in this range. The patient should follow a healthful lifestyle (good nutrition with adequate calcium and vitamin D, and appropriate weight-bearing exercise). Follow-Up: Consider a repeat BMD and Vertebral Fracture Assessment (VFA) exam in 2 years or sooner i
== END 2023-10-03 08:46 | disposition home or self-care (01) ==
LOC: ANHIMG 08:48
PROVIDERS: PCP Family Medicine; Visit Provider Family Medicine
DX: M81.0 Age-related osteoporosis without current pathological fracture (principal); Z13.820 Encounter for screening for osteoporosis; M85.851 Other specified disorders of bone density and structure, right thigh
CPT/HCPCS: 77080

== ENCOUNTER 2023-12-07 10:00 | Day surgery (SDC) | payer OTHER, SELFPAY ==
[2023-12-02 15:03] VITALS: BMI 28.0
--- NOTE | 2023-12-07 07:50 | WPDANESEPPF ---
Anes - Initial Pre Proc Eval Procedure: Operation Date: 12/07/23 13:00 Proposed Procedures p Esophagogastroduodenoscopy - Tomas Kaur MD Date/Time: 12/07/23 07:50 Surgeon: Tomas Kaur MD Pre Op Diagnosis: Dysphagia Patient Data Age: 68 Gender: F Height: 1.57 m Weight: 69.4 kg Allergies Allergy/AdvReac Type Severity Reaction Status Date / Time No Known Allergies Allergy Verified 12/07/23 11:42 Home Medications Medication Instructions Recorded Confirmed Type L-Lysine Complex 1 tab-cap PO DAILY 07/13/22 12/07/23 History psyllium husk 0.4 gram capsule 0.4 g PO DAILY 07/13/22 12/07/23 History (Metamucil) Calcium-Vitamin D 1 tab-cap PO DAILY #90 tabs 02/08/23 12/07/23 Rx ascorbic acid (vitamin C) 500 mg 500 mg PO DIRECTED 05/09/23 12/07/23 History capsule lovastatin 20 mg tablet See Rx Instructions .Route 06/14/23 12/07/23 Rx .COMPLEX #90 tabs amlodipine 5 mg tablet See Rx Instructions .Route 08/15/23 12/07/23 Rx .COMPLEX #30 tabs denosumab 60 mg/mL subcutaneous 60 mg subcut [id number] #1 mL 10/05/23 12/07/23 Rx syringe ferrous sulfate 325 mg (65 mg 325 mg PO DAILY #30 tabs 10/10/23 12/07/23 Rx iron) tablet Patient hx anesthesia problems: none Family hx anesthesia problems: none Results Review: All pre-operative results and documents have been reviewed as part of the pre-operative evaluation. [facility] Past Medical History Medical History (Updated 12/07/23 @ 12:26 by Tomas Kaur MD) HTN (hypertension) Hyperlipidemia LDL goal <130 Surgical History Surgical History (Updated 12/07/23 @ 07:50 by Talha Anna DO) H/O vaginal hysterectomy History of tubal ligation Family History Family History Mother , Age 80 - Alzheimer's Disease No problems noted. Father , Age 78 - Myocardial Infarction No problems noted. Grandparent , - Myocardial Infarction No problems noted. Grandparent , - Myocardial Infarction No problems noted. Grandparent , Age 80 - Alzheimer's Disease No problems noted. Grandparent , - Myocardial Infarction No problems noted. Sibling , Age 42 - Myocardial Infarction No problems noted. Sibling , Age 57 - Cancer No problems noted. Social History Social History Smoking status: Never smoker Alcohol intake: current Drinks per week: 1 Alcohol use details: rarely Substance use: never Substance use type: does not use Lack of Transportation: No Lack of Food: Never True Current Housing: I Have Housing Concerned About Future Housing: No Difficulty Paying Gas/Electric Bills: No Difficulty Paying for Meds: No Currently Unemployed: No Education: Master's Degree or Higher Difficulty w/ Childcare or Family Care: No Living arrangements: with family Spiritual care concerns: No Anes - Eval Final PreProcedure Day of Procedure 12/07/23 07:50 Patient weight: overweight Heart: regular rate and rhythm Lungs: clear to auscultation Airway: Mallampati scale class II Neurological: alert and oriented Last oral intake: >/= 8 hours ASA classification: II Emergent: no Anesthetic plan: proceed Anesthesia type and monitoring: general GIVS and standard monitoring Results Review: All pre-operative results and documents have been reviewed as part of the pre-operative evaluation. Informed Consent: The patient's anesthetic plan and its attendant risks and benefits were discussed with the patient/family/POA. Questions were solicited and answers provided to the satisfaction of the patient/family/POA.
[2023-12-07 11:53] VITALS: BMI 28.3
[2023-12-07 11:54] VITALS: BP 121/79; PULSE 84; RESP 16; TEMP 36.7; O2SAT 98
[2023-12-07] MEDS: LACTATED RINGERS 1,000 ML 150 ML IV CONT (12:07)
--- NOTE | 2023-12-07 12:24 | PM.HPGS ---
History of Present Illness History of Present Illness Consent: Risks, benefits, and alternatives have been discussed and questions answered. Patient agrees to proceed with procedure. Chief complaint: Dysphagia Narrative: Mireya Duarte is a 68 year old female presents for EGD. Patient has noticed difficulty swallowing for 1 year. Lately however after Thanksgiving in June symptoms worsened.. Food appears to catch in the low mid substernal chest. When this occurs it is difficult for her to eat any additional food. She is unable to get it pass with liquid which also hangs up in that instance. Solid foods seem to hang up more than liquid food she she does notice occasional abdominal pain when this occurs. She also has a history of acid reflux with heartburn. She only takes Tums on occasion for this. Family history noncontributory. Patient has noticed no bleeding nor weight loss. Review of Systems Review of Systems: Review of systems noncontributory. [facility] Past Medical History Medical History (Updated 12/07/23 @ 12:26 by Tomas Kaur MD) HTN (hypertension) Hyperlipidemia LDL goal <130 Surgical History Surgical History (Updated 12/07/23 @ 07:50 by Talha Anna DO) H/O vaginal hysterectomy History of tubal ligation Family History Family History Mother , Age 80 - Alzheimer's Disease No problems noted. Father , Age 78 - Myocardial Infarction No problems noted. Grandparent , - Myocardial Infarction No problems noted. Grandparent , - Myocardial Infarction No problems noted. Grandparent , Age 80 - Alzheimer's Disease No problems noted. Grandparent , - Myocardial Infarction No problems noted. Sibling , Age 42 - Myocardial Infarction No problems noted. Sibling , Age 57 - Cancer No problems noted. Social History Social History Smoking status: Never smoker Alcohol intake: current Drinks per week: 1 Alcohol use details: rarely Substance use: never Substance use type: does not use Lack of Transportation: No Lack of Food: Never True Current Housing: I Have Housing Concerned About Future Housing: No Difficulty Paying Gas/Electric Bills: No Difficulty Paying for Meds: No Currently Unemployed: No Education: Master's Degree or Higher Difficulty w/ Childcare or Family Care: No Living arrangements: with family Spiritual care concerns: No Meds Home Medications and Allergies Home Medications Medication Instructions Recorded Confirmed Type L-Lysine Complex 1 tab-cap PO DAILY 07/13/22 12/07/23 History psyllium husk 0.4 gram capsule 0.4 g PO DAILY 07/13/22 12/07/23 History (Metamucil) Calcium-Vitamin D 1 tab-cap PO DAILY #90 tabs 02/08/23 12/07/23 Rx ascorbic acid (vitamin C) 500 mg 500 mg PO DIRECTED 05/09/23 12/07/23 History capsule lovastatin 20 mg tablet See Rx Instructions .Route 06/14/23 12/07/23 Rx .COMPLEX #90 tabs amlodipine 5 mg tablet See Rx Instructions .Route 08/15/23 12/07/23 Rx .COMPLEX #30 tabs denosumab 60 mg/mL subcutaneous 60 mg subcut [id number] #1 mL 10/05/23 12/07/23 Rx syringe ferrous sulfate 325 mg (65 mg 325 mg PO DAILY #30 tabs 10/10/23 12/07/23 Rx iron) tablet Allergies Allergy/AdvReac Type Severity Reaction Status Date / Time No Known Allergies Allergy Verified 12/07/23 11:42 Vital Signs Vital Signs - 24 hr 12/07/23 11:54 Temperature 98.0 F Pulse Rate 84 Respiratory Rate 16 Blood Pressure 121/79 Pulse Oximetry 98 Oxygen Delivery Room Air Exam Narrative: Physical exam reveals patient to be signs stable. HEENT exam is unremarkable. Patient is anicteric. Lungs are clear to auscu
[2023-12-07 12:44] VITALS: BP 107/79; PULSE 78; RESP 16; O2SAT 97
--- NOTE | 2023-12-07 12:47 | WPDANESPN ---
Anes - Prog Note Post-Op Date/Time: 12/07/23 12:47 Cardiovascular status: normal Respiratory status: normal Airway patency: baseline Mental status: baseline Post-Op hydration status: normal Vital Signs: Last Vital Signs Temp 36.7 C 12/07/23 11:54 Pulse 84 12/07/23 11:54 Resp 16 12/07/23 11:54 BP 121/79 12/07/23 11:54 Pulse Ox 98 12/07/23 11:54 O2 Del Method Room Air 12/07/23 11:54 Pain Score (VAS): 0 I/O: Intake & Output 12/06/23 12/07/23 12/07/23 23:59 07:59 15:59 Intake Total 0 Balance 0 Post-procedural complaints: none Patient Feedback: Patient satisfied with anesthetic care. Other Findings: Patient vital signs back to baseline. Patient denies nausea and vomiting. Patient's pain under control. Patient OK for discharge.
[2023-12-07 12:54] VITALS: BP 107/69; PULSE 74; RESP 16; O2SAT 98
[2023-12-07 13:04] VITALS: BP 116/74; PULSE 78; RESP 16; O2SAT 98
== END 2023-12-07 13:30 | disposition home or self-care (01) ==
PROVIDERS: PCP Family Medicine; Visit Provider Internal Medicine Gastroenterology
PROC: 0DJ08ZZ Inspection of Upper Intestinal Tract, Via Natural or Artificial Opening Endoscopic (ICD-10-PCS; CPT 43235; principal; 2023-12-07 13:00)
DX: R13.19 Other dysphagia (principal); K21.9 Gastro-esophageal reflux disease without esophagitis; K22.2 Esophageal obstruction; K44.9 Diaphragmatic hernia without obstruction or gangrene
CPT/HCPCS: 43239; 43249

== ENCOUNTER 2023-12-12 20:12 | Emergency (ER) | payer OTHER, SELFPAY ==
[2023-12-12] VITALS (18 sets, daily range): BP systolic 127–150; BP diastolic 59–83; PULSE 71–86; RESP 14–24; TEMP 36.1–36.2; O2SAT 93–100
--- NOTE | ~2023-12-12 | XR_ITS ---
EXAMINATION: XR elbow RT 2V DATE: 12/12/2023 22:08 INDICATION: Right elbow dislocation status post reduction. TECHNIQUE: A single view of right elbow was obtained. COMPARISON: Right elbow radiographs at 8:50 PM FINDINGS: Bone alignment is normal. No fracture. Joint spaces are normal. No elbow joint effusion vis ualized. IMPRESSION: 1. Normal alignment at the elbow joint. Reviewed, dictated and finalized at location E.
--- NOTE | ~2023-12-12 | XR_ITS ---
EXAMINATION: XR elbow RT min 3V DATE: 12/12/2023 21:03 INDICATION: Right elbow pain and deformity. TECHNIQUE: 2 views of right elbow were obtained. COMPARISON: None. FINDINGS: There is posterior dislocation of the radius and ulna with respect to the humerus. No fract ure. IMPRESSION: 1. Posterior right elbow dislocation. Reviewed, dictated and finalized at location E.
[2023-12-12] MEDS: HYDROmorphone HCL INJ (*CRX) 1 MG/ML SYR IV PUSH (20:46)
[2023-12-12] MEDS: CYCLOBENZAPRINE HCL 10 MG TABLET PO (21:09)
--- NOTE | 2023-12-12 21:11 | PC.NURSE ---
Pt being moved to room 22 for conscious sedation.
--- NOTE | 2023-12-12 21:12 | ED.FALL ---
HPI - Fall General Chief Complaint: Fall <Cari Molina PA-C - Last Filed: 12/12/23 23:38> Stated Complaint: FALL, UE DEFORMITY <JULIA Cee Last Filed: 12/12/23 23:38> Time Seen by Provider: 12/12/23 20:35 <Cari Molina PA-C - Last Filed: 12/12/23 23:38> History of Present Illness HPI Narrative: 68-year-old female presents to the emergency department via EMS after a fall that occurred prior to arrival. Patient states she was getting out of a truck when she misstepped and fell to the ground. States she landed on her right arm. Denies hitting her head or losing consciousness. She is reporting significant pain to her right elbow with a obvious deformity. She received 30 mg of ketamine EN route for pain. Upon arrival she is still asking for more pain control. She denies head injury, LOC, neck pain, back pain, hip or lower extremity injury, other injury acquired. She is not anticoagulated. <Cari Molina PA-C - Last Filed: 12/12/23 23:38> Related Data Home Medications: Home Medications Medication Instructions Recorded Confirmed L-Lysine Complex 1 tab-cap PO DAILY 07/13/22 12/07/23 psyllium husk 0.4 gram capsule 0.4 g PO DAILY 07/13/22 12/07/23 (Metamucil) ascorbic acid (vitamin C) 500 mg 500 mg PO DIRECTED 05/09/23 12/07/23 capsule <JULIA Cee Last Filed: 12/12/23 23:38> Allergies/Adverse Reactions: Allergies Allergy/AdvReac Type Severity Reaction Status Date / Time No Known Allergies Allergy Verified 12/07/23 11:42 <Cari Molina PA-C - Last Filed: 12/12/23 23:38> Review of Systems Review of Systems: CONSTITUTIONAL: Denies fever, chills, or sweats. EYES: Denies visual changes, redness, or discharge. ENT: Denies rhinorrhea, congestion, sore throat, or otalgia. CARDIOVASCULAR: Denies chest pain, palpitations, or edema. RESPIRATORY: Denies cough or dyspnea. GASTROINTESTINAL: Denies abdominal pain, nausea, vomiting, or diarrhea. GENITOURINARY: Denies dysuria or hematuria. SKIN: Denies rash or itching. MUSCULOSKELETAL: See HPI. NEUROLOGIC: Denies headache, numbness, or weakness. PSYCHIATRIC: Denies anxiety or depression. <Cari Molina PA-C - Last Filed: 12/12/23 23:38> [facility] Past Medical History Medical History: Medical History HTN (hypertension) Hyperlipidemia LDL goal <130 <Cari Molina PA-C - Last Filed: 12/12/23 23:38> Surgical History Surgical History: Surgical History H/O vaginal hysterectomy History of tubal ligation <Cari Molina PA-C - Last Filed: 12/12/23 23:38> Family History Family History: Family History Mother , Age 80 - Alzheimer's Disease No problems noted. Father , Age 78 - Myocardial Infarction No problems noted. Grandparent , - Myocardial Infarction No problems noted. Grandparent , - Myocardial Infarction No problems noted. Grandparent , Age 80 - Alzheimer's Disease No problems noted. Grandparent , - Myocardial Infarction No problems noted. Sibling , Age 42 - Myocardial Infarction No problems noted. Sibling , Age 57 - Cancer No problems noted. <Cari Molina PA-C - Last Filed: 12/12/23 23:38> Social History Social History: Social History Smoking status: Never smoker Alcohol intake: current Drinks per week: 1 Alcohol use details: rarely Substance use: never Substance use type: does not use Lack of Transportation: No Lack of Food: Never True Current Housing: I Have Housing Concerned About F
[2023-12-12] MEDS: PROPOFOL IV EMULSION 200 MG/20 ML VIAL 100 MG IV PUSH (22:04)
--- NOTE | 2023-12-12 22:53 | PC.NURSE ---
2151 80 mg of propofol administered by Dr. Wilkinson via IV push. Ambu bag and suction set up, respiratory at bedside, as well as this RN, Rajni RN, Dr. Wilkinson and Dr. Harris. 2154 Pt's O2 sat dropped to 85%, RT applied BVM and manually ventilated. Pt's o2 then came back up to 96%. 2 L of O2 via NC placed by RT. Pt's O2 sat is 100% and maintaining. RT, Dr. Wilkinson and Dr. Harris remain at bedside.
--- NOTE | 2023-12-12 23:36 | PC.NURSE ---
Upon discharge this RN takes patient's IV and she begins to feel nauseous and has to lay back in bed. PA made aware.
[2023-12-12] MEDS: ONDANSETRON HCL ODT 4 MG TABLET PO (23:48)
--- NOTE | 2023-12-13 08:21 | ED.FALL ---
HPI - Fall General Chief Complaint: Fall Stated Complaint: FALL, UE DEFORMITY Time Seen by Provider: 12/12/23 20:35 Related Data Home Medications Medication Instructions Recorded Confirmed L-Lysine Complex 1 tab-cap PO DAILY 07/13/22 12/07/23 psyllium husk 0.4 gram capsule 0.4 g PO DAILY 07/13/22 12/07/23 (Metamucil) ascorbic acid (vitamin C) 500 mg 500 mg PO DIRECTED 05/09/23 12/07/23 capsule Allergies Allergy/AdvReac Type Severity Reaction Status Date / Time No Known Allergies Allergy Verified 12/07/23 11:42 [facility] Past Medical History Medical History HTN (hypertension) Hyperlipidemia LDL goal <130 Surgical History Surgical History H/O vaginal hysterectomy History of tubal ligation Family History Family History Mother , Age 80 - Alzheimer's Disease No problems noted. Father , Age 78 - Myocardial Infarction No problems noted. Grandparent , - Myocardial Infarction No problems noted. Grandparent , - Myocardial Infarction No problems noted. Grandparent , Age 80 - Alzheimer's Disease No problems noted. Grandparent , - Myocardial Infarction No problems noted. Sibling , Age 42 - Myocardial Infarction No problems noted. Sibling , Age 57 - Cancer No problems noted. Social History Social History Smoking status: Never smoker Alcohol intake: current Drinks per week: 1 Alcohol use details: rarely Substance use: never Substance use type: does not use Lack of Transportation: No Lack of Food: Never True Current Housing: I Have Housing Concerned About Future Housing: No Difficulty Paying Gas/Electric Bills: No Difficulty Paying for Meds: No Currently Unemployed: No Education: Master's Degree or Higher Difficulty w/ Childcare or Family Care: No Living arrangements: with family Spiritual care concerns: No Course Vital Signs Vital signs: Vital Signs Temperature 97.0 F L 04/15/24 20:10 Pulse Rate 75 12/12/23 20:10 Respiratory Rate 17 12/12/23 20:10 Blood Pressure 130/59 L 12/12/23 20:10 Pulse Oximetry 100 12/12/23 20:10 Oxygen Delivery Room Air 12/12/23 20:10 Temperature 97 F L 12/12/23 22:30 Pulse Rate 86 12/12/23 23:21 Respiratory Rate 19 12/12/23 23:21 Blood Pressure 148/74 H 12/12/23 23:21 Pulse Oximetry 97 12/12/23 23:21 Oxygen Delivery Room Air 12/12/23 22:30 Oxygen Flow Rate 2 12/12/23 22:15 Discharge Plan Discharge Clinical Impression: Dislocated elbow Patient Disposition: Home, Self-Care Condition: Stable Instructions: Antibiotic Form, Elbow Dislocation (ED) Additional Instructions: Your evaluated in the emergency department for an elbow dislocation. We were able to reduce it successfully in the ER. He replaced the splint provided with a sling. Please follow-up very closely with the orthopedic doctor referred you to. Take Tylenol ibuprofen as needed for pain. Return to the emergency department if he develops significantly worsening pain, a cold, white or numb hand, or other concerning symptoms. Prescriptions: No Action psyllium husk [Metamucil] 0.4 gram Capsule 0.4 g PO DAILY L-Lysine Complex 1 tab-cap PO DAILY Calcium-Vitamin D 1 tab-cap PO DAILY Qty: 90 0RF ascorbic acid (vitamin C) 500 mg capsule 500 mg PO DIRECTED lovastatin 20 mg tablet See Rx Instructions .ROUTE .COMPLEX Qty: 90 1RF Dose Instruction: TAKE 1 TABLET DAILY Rx Instructions: TAKE 1 TABLET DAILY amlodipine 5 mg tablet See Rx Instruc
== END 2023-12-12 23:59 | disposition home or self-care (01) ==
PROVIDERS: Emergency Provider Physician Assistant; PCP Family Medicine
DX: S63.014A Dislocation of distal radioulnar joint of right wrist, initial encounter (principal); I10 Essential (primary) hypertension; E78.5 Hyperlipidemia, unspecified; Z90.710 Acquired absence of both cervix and uterus; W17.89XA Other fall from one level to another, initial encounter
CPT/HCPCS: 24600; 73070; 73080; 96374; 99285; A4565; A9270; J1170; J2704; J7030

== ENCOUNTER 2024-05-31 16:10 | Outpatient (CLI) | payer OTHER, SELFPAY ==
--- NOTE | ~2024-05-31 | XR_ITS ---
XR wrist LT min 3V Ordering provider: Rashard Pantoja MD History: . pain in lt wrist . Comparison: None. FINDINGS: BONES: No acute fracture or dislocation. No definite scaphoid fracture. JOINT SPACES: Well maintained. SOFT TISSUES: Normal. IMPRESSION: No acute osseous abnormality left wrist. Reviewed, dictated and finalized at location A.
== END 2024-05-31 16:11 | disposition home or self-care (01) ==
LOC: ANHIMG 16:12
PROVIDERS: PCP Family Medicine; Visit Provider Orthopaedic Surgery
DX: M25.532 Pain in left wrist (principal)
CPT/HCPCS: 73110

== ENCOUNTER 2024-06-04 08:41 | Outpatient (CLI) | payer OTHER, SELFPAY ==
[2024-06-04 12:57] LABS: Basophils Percent Auto 0.2 % (0.2-1.2); Eosinophils Absolute Auto 0.2 K/mm3 (0-0.3); Eosinophils Percent Auto 2.4 % (0-4.4); Hematocrit 49.7 % (37.0-47.0); Hemoglobin 16.1 g/dL (12.0-15.0); Immature Granulocyte Absolute 0.03 K/mm3 (0.00-0.031); Immature Granulocyte Percent A 0.4 % (0-0.5); Lymphocytes Absolute Auto 1.57 K/mm3 (0.9-3.2); Lymphocytes Percent Auto 18.5 % (18.3-44.2); Mean Corpuscular HGB Conc 32.4 g/dl (32-36); Mean Corpuscular Hemoglobin 31.3 pg (26-34); Mean Corpuscular Volume 96.5 fl (80-100); Mean Platelet Volume 10.6 fl (7.4-10.4); Monocytes Absolute Auto 0.8 K/mm3 (0.1-0.6); Monocytes Percent Auto 8.8 % (2.6-8.5); Neutrophils Absolute Auto 5.9 K/mm3 (1.3-6.7); Neutrophils Percent Auto 69.7 % (45.5-73.1); Platelet Count Result 254 k/mm3 (150-375); Red Blood Count 5.15 M/mm3 (4.2-5.4); Red Cell Distribution Width 12.7 % (11.5-14.5); White Blood Count 8.5 K/mm3 (4.5-10.0)
[2024-06-04 13:27] LABS: Alanine Aminotransferase 19 U/L (6-35); Albumin Level 4.3 g/dL (3.5-5.1); Alkaline Phosphatase 105 U/L (38-126); Anion Gap 7 mmol/L (4-12); Aspartate Amino Transferase 55 U/L (14-36); Bilirubin,Total 1.3 mg/dL (0.2-1.3); Blood Urea Nitrogen 15 mg/dL (7-17); Calcium 9.7 mg/dL (8.4-10.2); Carbon Dioxide 30 mmol/L (22-30); Chloride 101 mmol/L (98-107); Cholesterol 201 mg/dL (0-200); Estimated Glomerular Filt Rate > 60; Glucose 81 mg/dL (65-110); HDL Direct 52 mg/dL; Potassium 3.9 mmol/L (3.4-5.0); Sodium 138 mmol/L (137-145); Triglycerides 109 mg/dL (<150)
[2024-06-04 13:38] LABS: LDL Cholesterol Direct 111 mg/dL
== END 2024-06-04 08:42 | disposition home or self-care (01) ==
LOC: ANHGOSHLAB 08:42
PROVIDERS: PCP Family Medicine; Visit Provider Family Medicine
DX: E78.5 Hyperlipidemia, unspecified (principal); Z13.220 Encounter for screening for lipoid disorders; R53.83 Other fatigue; Z13.228 Encounter for screening for other metabolic disorders; D50.9 Iron deficiency anemia, unspecified; D50.8 Other iron deficiency anemias
CPT/HCPCS: 36415; 80053; 80061; 82728; 85025

== ENCOUNTER 2024-06-15 08:05 | Outpatient (CLI) | payer OTHER, SELFPAY ==
--- NOTE | ~2024-06-15 | US_ITS ---
US thyroid INDICATION: Thyroid nodule follow-up TECHNIQUE: Real-time sonographic images of the thyroid gland were obtained. COMPARISON: Ultrasound dated 05/28/2022 FINDINGS: The right thyroid lobe measures 2.9 x 1 x 1.1 cm. The left thyroid lobe measures 3.9 x 1.7 x 1.9 cm. In the right thyroid lobe there is an oval hypoechoic solid mass which is wider than tall, smoothly marginated without echogenic foci, measuring 10 x 10 x 7 mm, TR 4. In the left lobe there i s an oval predominantly solid hypoechoic smoothly marginated mass which is wider than tall measuring 2.6 x 1.9 x 1.5 cm, stable compared with prior examination allowing for differences of technique, TR 4. There is increased vascularity. IMPRESSION: 1. Stable likely benign bilateral thyroid masses, largest in the left lobe measuring 2.6 cm. Given t he lack of interval change these are likely benign. Twelve-month follow-up ultrasound recommended. Reviewed, dictated and finalized at location B. IMPRESSION: 1. Stable likely benign bilateral thyroid masses, largest in the left lobe vy suring 2.6 cm. Given the lack of interval change these are likely benign. Twelv e-month follow-up ultrasound recommended.
== END 2024-06-15 08:06 | disposition home or self-care (01) ==
PROVIDERS: PCP Family Medicine; Visit Provider Family Medicine
DX: E07.9 Disorder of thyroid, unspecified (principal)
CPT/HCPCS: 76536

== ENCOUNTER 2024-10-24 15:22 | Outpatient (CLI) | payer OTHER, SELFPAY ==
--- OUTSIDE RECORDS SUMMARY | 2024-10-24 17:47 | XMS_ITS | Clinical Summary ---
Author Organization [facility] Address [address] [place] [id number] Care Team Providers Care Bureau Director Name Role Phone Unavailable Primary Care Provider Unavailabl e Social History Tobacco Use Types Packs/Day Years Used Date Smoking Tobacco: Never Assessed Comments Unknown Sex and Gender Information Value Date Recorded Sex Assigned at Not on file Legal Sex Female 8:25 PM CDT Gender Identity Not on file Sexual Orientation Not on file Plan of Treatment Health Maintenance Due Date Last Done Comments Colorectal Cancer Screening Colonoscopy (10 Years) 1955 Hepatitis C 1973 DTaP, Tdap and Td Vaccines ( 1 - Tdap) 1974 Mammogram Screening 1995 Zoster Vaccines (1 of 2) 2005 Dexa Scan (General) 2020 Pneumococcal Vaccine: 65+ Ye ars (1 of 1 - PCV) 2020 COVID-19 Vaccine (2023-2 5 season) 2024 Influenza Adult (#1) 2024 RSV Immunization or 60+ Years (1 - 1-dose 75+ series) 2030 Meningococcal B Vaccine Aged Out No l onger eligible based on patient's age to complete this topic Meningococcal Vaccine Aged Out No mary lay eligible based on patient's age to complete this topic RSV Immunizations Under 20 Months Aged Out No longer eligible based on patient's age to complete this topic
--- OUTSIDE RECORDS SUMMARY | 2024-10-24 17:47 | XMS_ITS | Continuity of Care Document ---
Author Organization [facility] Address [address] [facility] [address] [place] [address] Phone Care Team Providers Care Horse Show Judge Name Role Phone José Miguel Shields MD, MD Unavailable Unavailable Allergies, Adverse Reactions, Alerts Substance Reaction Status Criticality No Known Allergies Active No Inform ation Medications Medication Instructions Dosage Effective Dates (start - stop) Status Comments Miebo 100 % eye drops instill 1 drop by ophthalmic route 4 times every day into both eyes for dryness - Active Please call pt at [phone] omeprazole 20 mg tablet,delayed release - Active Vitamin C 100 mg tablet - Active Metamucil 0.4 gram capsule - Active iron 18 mg tablet - Active Prolia 60 mg/mL subcutaneous syringe inject 1 milliliter by subcutaneous route every 6 months in the upper arm, upper thigh or abdomen 60 MG - Active lovastatin 20 mg tablet take 1 tablet by oral route every day with the evening meal 20 MG - Active Vitamin D2 1,250 mcg (50,000 unit) capsule take 1 capsule by oral route every month 05684 UNITS - Active L-Lysine 500 mg tablet - Active amlodipine 5 mg tablet take 1 tablet by oral route every day 5 MG - Active Procedures Procedure Date POSTOP FOLLOW-UP VISIT POSTOP FOLLOW-UP VISIT PHARMACY REFILL POSTOP FOLLOW-UP VISIT POSTOP FOLLOW-UP VISIT POSTOP FOLLOW-UP VISIT POSTOP FOLLOW-UP VISIT POSTOP FOLLOW-UP VISIT YAG PC AFTER CATARACT LASER SURGERY CATARACT SURG W/IOL, 1 STAGE Light Adj Lens Procedure PHARMACY REFILL PO Adj Light Adj Lens PRE PAYMENT SURGERY SEE TRACKING NOTES N CATARACT SURG W/IOL, 1 STAGE Light Adj Lens Procedure PO Adj Light Adj Lens PRE PAYMENT SURGERY SEE TRACKING NOTES O OFFICE/OUTPATIENT VISIT, NEW OPHTHALMIC BIOMETRY/IOL MASTER REFRACTION [facility]PS[facility] EXTND ON/MAC DRAW CORNEAL TOPOGRAPHY SMART DROPS BOTH EYES Advance Directives Directive Yes / No Effective Date File Name No Information Encounters Encounter Description Practice Location Reason(s) For Visit Diagnoses Date Provider Providers Copied on Encounter [facility], [address] [place] [address], [id number], tel:[phone] OPH CONSULT MU DUONG Post OP (chief complaint) Other specified postprocedural states Alyson Valdez. [address] [facility] [address], [address], [place], [place], [address], [place]. tel:[phone] Referring Provider: Christel Sandra OD, [address], [place], [place], [id number]. tel:[phone] [facility], [address] [place] [address], [place], [place], [id number], tel:[phone] OPH CONSULT MU DUONG YAG PC (chief complaint) Presence of intraocular lens 5 Alyson Valdez. [address] [facility], [address], [place], [place], [address], [place]. tel:[phone] Referring Provider: Christel Sandra OD, [address] [facility], [place], [place], [id number]. tel:[phone] [facility], [address] [place] [address], [id number], [place] tel:[phone] OPH CONSULT MU DUONG Post Op (chief complaint) Presence of intraocular lens [address]in Lopez. [address] [facility], [address] [facility]], [place], [address], [place]. tel:[phone] Referring Provider: Christel Sandra OD, [address], [place], [place], [id number]. tel:[phone] [facility], [address] [place] [address], [id number], tel:[phone] OPH CONSULT MU DUONG Post op (chief complaint) Presence of intraocular lens 5 Valentin Lopez. [address] [place] [address], [place] [address], [place], [address], [place]. tel:[phone] Referring Provider: Christel Sandra OD, [address], [place], [place], [id number]. tel:[phone] [facility], [address] [place] [address], [id number], [place] tel:[phone] OPH CONSULT MU DUONG post op (chief complaint) Presence of intraocular lens 4 Valentin Mays [address] [place] [address], [place] [address], [place], [address], [place]. tel:[phone] Referring Provider: Christel Sandra OD, [address], [place] , [place], [id number]. tel:[phone] [facility], [address] [place] [address], [id number], [place] tel:[phone] OPH CONSULT MU DUONG Post-Op (chief complaint) Age-related nuclear cataract, left eye 4 Valentin Mays [address] [place] [address], [address] [facility]], [place], [address], [place]. tel:[phone] Referring Provider: Christel Sandra OD, [address], [place], [place], [id number]. tel:[phone] [facility], [address] [place] [address], [place], [place], [id number], [place] tel:[phone] OPH CONSULT MU DUONG Post Op (chief complaint) Presence of intraocular lens [address]. [address] [facility], [address], [place], [address], [place]. tel:[phone] Referring Provider: Christel Sandra OD, [address], [facility], [place], [id number]. tel:[phone] [facility], [address] [place] [address] [address], [place], [place], [id number], [place] tel:[phone] [facility] No Information 4 Alyson Valdez. [address], [address], [place], [place], [id number], [place]. tel:[phone] Referring Provider: Christel Sandra OD, [address], [place], [place], [id number]. tel:[phone] [facility], [address] [place] [address], [place], [place], [id number], [place] tel:[phone] [facility] No Information 4 Alyson Valdez. [address], [address], [place], [place], [address], [place]. tel:[phone] Referring Provider: Christel Mosesl OD, [address], [place], [place], [id number]. tel:[phone] [facility], [address] [place] [address], [place], [place], [id number], [place] tel:[phone] [facility]PH CONSULT MU DUONG No Information 4 Alyson Valdez. [address], [address], [place], [place], [id number], [place]. tel:[phone] Referring Provider: Christel Jocy OD, [address], [facility] [place], [id number]. tel:[phone] [facility], [address], [place], [place], [id number], [place] tel:[phone] OPH CONSULT MU DUONG No Information 4 Valentin Lopez. [address] [facility], [address], [place], [address], [place]. tel:[phone] Referring Provider: Christel Jocy OD, [address], [place] , [place], [id number]. tel:[phone] [facility], [address], [place], [place], [address], [place] tel:[phone] OPH CONSULT MU DUONG No Information 4 Alyson Valdez. [address], [address], [place], [place], [id number], [place]. tel:[phone] Referring Provider: Christel Mosesl OD, [address], [facility] [place], [id number]. tel:[phone] [facility], [address] [place], [place] [address] [address], [place], [place], [id number], [place] tel:[phone] [facility] No Information 4 Alyson Valdez. [address], [address], [place], [place], [address], [place]. tel:[phone] Referring Provider: Christel Jocy OD, [address], [place] , [place], [id number]. tel:[phone] [facility], [address], [place], [place], [id number], [place] tel:[phone] OPH CONSULT MU DUONG No Information 4 Valentin Lopez. [address] [facility], [address], [place], [address], [place]. tel:[phone] Referring Provider: Christel Jocy OD, [address], [place], [place], [address]. tel:[phone] [facility], [address] [address], [place], [place], [id number], tel:[phone] OPH CONSULT MU DUONG No Information 4 Alyson Valdez. [address], [address], [place], [place], [address], . tel:[phone] Referring Provider: Christel Sandra OD, [address] [facility] [address], [place], [place], [id number]. tel:[phone] OFFICE/OUTPA TIENT VISIT, [facility], [address] [address], [place], [place], [id number], tel:[phone] OPH CONSULT MU DUONG Cataract Evaluation (chief complaint)F loaters (chief complaint)l esion (chief complaint) Age-related nuclear cataract, bilateralKerat oconjunct sicca, not specified as Sjogren's, bilateralOther vitreous opacities, bilateralDerma tochalasis of right upper eyelidDermatoc halasis of right lower eyelidDermatoc halasis of left upper eyelidDermatoc halasis of left lower eyelid 4 Alyson Valdez. [address], [address], [place], [place], [address], [place]. tel:[phone] Referring Provider: Christel Sandra OD, [address] [facility] [address], [place], [place], [id number]. tel:[phone] Family History Family Member Type Diagnosis Age At Onset Mother Problem Glaucoma Payers Payer name Insurance type Covered libertarian ID Authormarilu flores(s) Ryann CI [id number] Social History Type Description Quantity Date Captured Comments Alcohol Use Details Unknown Caffeine Use Details Unknown Tobacco Use Status No Information Smoking Status No Information Sex Female Chief Complaint And Reason For Visit From encounter dated '10/15/2024 08:35'. Post OP (chief complaint). Description: The 69 year old female presents for evaluation of Post OP PRK OD. Vision seems to go in and out of focus and has a FBS, thinks due to BCL. Near vision seems oksince Sx. Using Vjxm-Tduw-Ptdg and Systane every hour OU and Meibo QID OS only -Needs a refill of Meibo - do we have any samples s/p PCIOL OU 2023s/p YAG OU 2023 Plan Of Treatment Date Type Action Status Appointment Mireya Duarte BOOKED History Of Present Illness Encounter Date Complaint History Of Prese nt Illness Post OP The 69 year old female presents for evaluation of Post OP PRK OD. Vision seems to go in and out of focus and has a FBS, thinks due to BCL. Near vision seems ok since Sx. Using Uzxi-Crkf-Xhml and Systane every hour OU and Meibo QID OS only -Needs a refill of Meibo - do we have any samples s/p PCIOL OU 2023s/p YAG OU 2023 YAG PC Std/D GILSON; OU OR A OU, YAG OU, Hx of myopic lasik OUOD: GILSON target: -0.75sph (mini Tripp)OS: GILSON Target: [place] (dom eye)Referred by Dr. Christel MoseslPatient states that her vision is like looking through a frosted glass on the right side of her vision. Post Op The 69 year old female presents for evaluation of Post op. She reports vision is okay, notes having some trouble with OD. On temporal side of OD, it looks like fogged glass. Still having trouble opening her OS this morning; Meibo uses 4x per day.She is using Systane 4x per day.Std/D GILSON; OU ORA OU, YAG OU, Hx of myopic lasik OUOD: GILSON target: -0.75sph (mini Tripp)OS: GILSON Target: [place] (dom eye)Referred by Dr. Christel Sandra Post op The 69 year old female presents for evaluation of Post op - GILSON Lock in #1 versus Adjustment #2. She reports having trouble opening her left eye this morning. She also feels OU have developed PCO, especially OD. She is using Systane Q2H - Q4H. Std/D GILSON; OU ORA OU, YAG OU, Hx of myopic lasik OUOD: GILSON target: -0.75sph (mini Tripp)OS: GILSON Target: [place] (dom eye)Referred by Dr. Christel Sandra post op The patient pres ents for evaluation of GILSON Follow Up - GILSON Adjustment #2 vs. Lock In #1. She reports no feelings of discomfort other than occasional dryness. Patient has been faithfully wearing UV glasses outside, just closes blinds inside. She utilizes PF AT s TID OU.Std/D GILSON; OU ORA OU, YAG OU, Hx of myopic lasik OUOD: GILSON target: -0.75sph (mini Tripp)OS: GILSON Target: [place] (dom eye)Referred by Dr. Christel Sandra Post-Op Additional infor mation: The patient presents for evaluation of GILSON Follow Up - GILSON Adjustment #2 vs. Lock In #1. She reports no feelings of discomfort other than occasional dryness. Patient has been faithfully wearing UV glasses outside, just closes blinds inside.Std/D GILSON; OU ORA OU, YAG OU, Hx of myopic lasik OUOD: GILSON target: -0.75sph (mini Tripp)OS: GILSON Target: [place] (dom eye)Referred by Dr. Christel Sandra. Post Op The 69 year old female presents for evaluation of Post Op GILSON OU. Patient reports vision she had YAG PC OU (200 shots OD, 79 shots OS); She reports fluctuating VA; OD more than OS. States JG told her to expect this. OU are comfortable. Patient has been faithfully wearing UV glasses outside; just closes blinds inside. OS dominant Std/D GILSON; OUORA OU YAG OUs.p myopic lasik; MWBcoy-Hxxk-Xfyy TID, AT PRN; OSReferred by Dr. Christel Sandra Cataract Evaluation The 68 year old female presents for evaluation of Cataract Evaluation; OU are effected equally. Patient reports struggling with near vision even with readers. She states DV can be fuzzy/halo'd. While driving at night, headlight glare can be problematic. OU are comfortable; but OU can take a while to wake up in the AM. h/o hyperopic lasik OU; 1999Referred by Dr. Christel Sandra @ [facility] Floaters The patient is p resent for evaluation of Floaters. Patient has floaters in OU. She denies curtains, a veil, or FOL. lesion The patient is p resent for evaluation of lesion. Patient has what she believes is a stye inside LLL, nasally. States it has been present for years and does not cause her trouble. Instructions Date Instruction Additional Infor mation Impression/Plan Related to Other specified postprocedural states Impression/Plan Related to Prese nce of intraocular lens Impression/Plan Related to Prese nce of intraocular lens Impression/Plan Related to Prese nce of intraocular lens Impression/Plan Related to Prese nce of intraocular lens Impression/Plan Related to Age-r elated nuclear cataract, left eye Impression/Plan Related to Prese nce of intraocular lens Impression/Plan Related to [place] tochalasis of left lower eyelid Impression/Plan Related to [place] tochalasis of left upper eyelid Impression/Plan Related to [place] tochalasis of right lower eyelid Impression/Plan Related to [place] tochalasis of right upper eyelid Impression/Plan Related to Other vitreous opacities, bilateral Impression/Plan Related to Kerat oconjunct sicca, not specified as Sjogren's, bilateral Impression/Plan Related to Age-r elated nuclear cataract, bilateral Assessments Type Assessment Date assessment Other specified postprocedural s tates
--- OUTSIDE RECORDS SUMMARY | 2024-10-24 17:47 | XMS_ITS | Referral Summary ---
Author Organization [facility] Address [address] [place] [address] Care Team Providers Care Marine Equipment Test Engineer Name Role Phone Yadiel Leon Primary Care Provider [phone] Encounters Date Type Department Care Team Description 09/04/2024 6:00 PM DOOR PANELER Office Visit [facility] at [address] [address] Reshma Roberts PA COVID (Primary Dx) from Last 3 Months Allergies No known active allergies Medications amLODIPine (NORVASC) 5 mg tablet Take 1 tablet (5 mg total) by mouth daily 3 Active lovastatin (MEVACOR) 20 mg tablet Take 1 tablet (20 mg total) by mouth daily Active alendronate (FOSAMAX) 70 mg tablet Take 1 tablet (70 mg total) by mouth every 7 days 3 Active ferrous sulfate 325 mg (65 mg of elemental iron) tablet Take 1 tablet (65 mg of elemental iron total) by mouth 4 Active omeprazole (PriLOSEC) 20 mg capsule Take 1 capsule (20 mg total) by mouth daily Active semaglutide (OZEMPIC) 2 mg/dose (8 mg/3 mL) pen injector injection Inject 2 mg under the skin Active benzonatate (TESSALON) 100 mg capsuleIndicati ons:Cough Take 1 capsule (100 mg total) by mouth 3 (three) times a day as needed for cough 21 capsule 5 Active Active Problems Problem Noted Date Diagnosed Date Arthralgia of ankle 11/28/2013 Social History Tobacco Use Types Packs/Day Years Used Date Smoking Tobacco: Never Passive Smoke Exposure: Never Smokeless Tobacco: Never Tobacco Cessation:Counseling Given: No Comments Unknown Sex and Gender Information Value Date Recorded Sex Assigned at Not on file Legal Sex Female 6:23 AM DOOR PANELER Gender Identity Not on file Sexual Orientation Not on file Last Filed Vital Signs Vital Sign Reading Time Taken Comments Blood Pressure 142/85 09/04/2024 6:26 PM DOOR PANELER Pulse 108 09/04/2024 6:26 PM DOOR PANELER Temperature 36.8 C (98.3 F) 09/04/2024 6:26 PM DOOR PANELER Respiratory Rate 20 09/04/2024 6:26 PM DOOR PANELER Oxygen Saturation 96% 09/04/2024 6:26 PM DOOR PANELER Inhaled Oxygen Concentration - - Weight 67 kg (147 lb 9.6 oz) 09/04/2024 6:26 PM DOOR PANELER Height 154.9 cm (5' 1 ) 09/04/2024 6:26 PM DOOR PANELER Body Mass Index 27.89 09/04/2024 6:26 PM DOOR PANELER Plan of Treatment Not on file Procedures Procedure Name Priority Date/Time Associated Diagnosis Comments POC INFLUENZA A/B, COVID-19 ANTIGEN Routine 09/04/2024 6:53 PM DOOR PANELER COVID from Last 3 Months Results * (ABNORMAL) POC Influenza A/B, COVID-19 antigen (09/04/2024 6:53 PM DOOR PANELER) Influenza A Ag, POC Negative Negative [facility] Influenza B Ag, POC Negative Negative [facility] COVID-19 Ag POC Positive(A) Presumptive Negative, Invalid [facility] Nasal 09/04/2024 6:5 3 PM DOOR PANELER us Reshma [place] TEST ORDER DOC Final Result [facility] [address] [place] [address], [facility] from Last 3 Months Insurance [employer] Care Teams Marine Equipment Test Engineer Relationship Specialty Start Date End Date Yadiel Leon DO PCP - General Family Medicine 02/09/23
--- OUTSIDE RECORDS SUMMARY | 2024-10-24 17:47 | XMS_ITS | Clinical Summary ---
Author Organization [facility] Administrative Offices Address [address] [place] [address] Care Team Providers Care Slubber Frame Changer Name Role Phone Virgil Shay MD Primary Care Provider [phone] Allergies No known active allergies Medications lovastatin (MEVACOR) 20 mg tablet Take 20 mg by mouth daily with supper. Active omeprazole (PriLOSEC) 20 mg Capsule, Delayed Release(E.C.) Take 20 mg by mouth 2 times daily. Active benzonatate (TESSALON) 200 mg capsuleIndicati ons:Cough Take 1 Capsule (200 mg) by mouth 3 times daily. 90 Capsule 1 10/12/2016 Active Active Problems Problem Noted Date Diagnosed Date Gastroesophageal reflux disease without esophagi tis 10/12/2016 Hypercholesteremia 10/12/2016 Immunizations Immunization Administration Dates Next Due INFLUENZA VACCINE QUADRIVALE NT 3 YR UP PF IM 05/23/2018,05/24/2017,05/25/2016,2014 INFLUENZA VACCINE QUADRIVALE NT 6 MOS UP PF IM 06/05/2019 Family History Medical History Relation Name Comments Breast Cancer Paternal Aunt age of onset unknown ? 60's or 70's Ovarian Cancer Neg Hx Relation Name Status Comments Paternal Aunt Social History Tobacco Use Types Packs/Day Years Used Date Smoking Tobacco: Never Comments No Sex and Gender Information Value Date Recorded Sex Assigned at Not on file Legal Sex Female 3:23 AM FOOD SERVICE COORDINATOR Gender Identity Not on file Sexual Orientation Not on file Last Filed Vital Signs Vital Sign Reading Time Taken Comments Blood Pressure 120/86 10/12/2016 8:19 AM FOOD SERVICE COORDINATOR Pulse 88 10/12/2016 8:19 AM FOOD SERVICE COORDINATOR Temperature 37.1 C (98.8 F) 10/12/2016 8:19 AM FOOD SERVICE COORDINATOR Respiratory Rate - - Oxygen Saturation 95% 10/12/2016 8:19 AM FOOD SERVICE COORDINATOR Inhaled Oxygen Concentration - - Weight 76.7 kg (169 lb) 10/12/2016 8:19 AM FOOD SERVICE COORDINATOR Height 154.9 cm (5' 1 ) 10/12/2016 8:19 AM FOOD SERVICE COORDINATOR Body Mass Index 31.93 10/12/2016 8:19 AM FOOD SERVICE COORDINATOR Plan of Treatment Health Maintenance Due Date Last Done Comments DTAP/TDAP/TD VACCINES (1 - Tdap) 1974 COLORECTAL SCREENING 2000 Colorectal Cancer Screening 2000 FIT-DNA Q 3 years 2000 FIT/FOBT Q 1 year 2000 Flex Sig/CT Colonography Q 5 years 2000 PNEUMOCOCCAL VACCINE 65+ YEA RS (1 of 1 - PCV) 2005 ZOSTER VACCINE (1 of 2) 2005 BREAST CANCER SCREENING 04/26/2019 04/26/20 18, 04/27/2017, 04/20/2016, Additional history exists OSTEOPOROSIS SCREENING 2020 INFLUENZA VACCINE (#1) 2024 9, 05/23/2018, 05/24/2017, Additional history exists RSV VACCINE (60+ or ) (1 - 1-dose 75+ series) 2030 Procedures Procedure Name Priority Date/Time Associated Diagnosis Comments MAMMO SCREEN BILAT W OR WO CAD Routine 04/26/2018 2:11 PM CDT Breast screening from Last 3 Months or Most Recently Relevant to Health Maintenance Results * MAMMO SCREEN BILAT W OR WO CAD (04/26/2018 2:11 PM CDT) Anatomical Region Laterality Modality Breast Bilateral Mammography Narrative 04/27/2018 1:28 PM CDT Bilateral digital screening mammogram with computer assisted diagnosis History: Annual screening exam. Findings: A bilateral screening mammogram was performed. Comparison is made to : 04/27/2017, 04/20/2016, and 04/22/2015 There are scattered fibroglandular densities. No new masses, suspicious calcifications, or areas of asymmetry or distortion are identified. CAD was utilized. Impression: Negative screening mammogram. Recommendation: Routine annual follow-up Overall Assessment: Birads Category 1: Negative us Virgil Shay MD MAMMO ORDERABLES Final Result from Last 3 Months or Most Recently Relevant to Health Maintenance Insurance [facility] BLUE PREFERRED Care Teams Slubber Frame Changer Relationship Specialty Start Date End Date Virgil Shay MD [address] [place] [address] [place] [address] PCP - General Family Practice 10/12/16
--- OUTSIDE RECORDS SUMMARY | 2024-10-24 17:47 | XMS_ITS | Clinical Summary ---
Author Organization [facility] Address [address] [place] [address] Care Team Providers Care Director Of Religious Activities Name Role Phone CarolynYadiel Primary Care Provider [phone] Allergies No known active allergies Medications amLODIPine [...] Date Diagnosed Date Arthralgia of ankle 11/28/2013 Encounters Date Type Department Care Team Description 09/04/2024 6:00 PM SOLUTION STRATEGIST Office Visit [facility] at [address] [address] Reshma Roberts PA COVID (Primary Dx) from Last 3 Months Surgical History Surgery Date Site/Laterality Comments LASIK HYSTERECTOMY Medical History Medical History Date Comments Hypertension Hypercholesteremia Osteoporosis Family History Medical History Relation Name Comments Stroke Father Family history of cerebrovascular accident - (Added by TW Conv) Cancer Mother Family history of malignant neoplasm - (Added by TW Conv) Cancer Sister Family history of malignant neoplasm - (Added by TW Conv) Mental illness Sister Chronic menta l illness - (Added by TW Conv) Relation Name Status Comments Father Mother Sister Social History Tobacco Use Types Packs/Day Years Used Date Smoking Tobacco: Never Passive Smoke Exposure: Never Smokeless Tobacco: Never Tobacco Cessation:Counseling Given: No Comments Unknown Sex and Gender Information Value Date Recorded Sex Assigned at Not on file Legal Sex Female 6:23 AM SOLUTION STRATEGIST Gender Identity Not on file Sexual Orientation Not on file Obstetrics History Last Filed Vital Signs Vital Sign Reading Time Taken Comments Blood Pressure 142/85 09/04/2024 6:26 PM SOLUTION STRATEGIST Pulse 108 09/04/2024 6:26 PM SOLUTION STRATEGIST Temperature 36.8 C (98.3 F) 09/04/2024 6:26 PM SOLUTION STRATEGIST Respiratory Rate 20 09/04/2024 6:26 PM SOLUTION STRATEGIST Oxygen Saturation 96% 09/04/2024 6:26 PM SOLUTION STRATEGIST Inhaled Oxygen Concentration - - Weight 67 kg (147 lb 9.6 oz) 09/04/2024 6:26 PM SOLUTION STRATEGIST Height 154.9 cm (5' 1 ) 09/04/2024 6:26 PM SOLUTION STRATEGIST Body Mass Index 27.89 09/04/2024 6:26 PM SOLUTION STRATEGIST Plan of Treatment Health Maintenance Due Date Last Done Comments Colon Cancer Screening-Colonoscopy 1955 Depression Screening 1955 Fall Risk Assessment 1955 Hepatitis C Screening 1955 Osteoporosis Screening-Bone Density Scan 1955 DTaP/Tdap/Td Vaccine (1 - Tdap) 1966 Hepatitis B Screening 1973 Breast Cancer Screening-Mammogram 04/26/2019 04/26/2018, 04/27/2017, 04/20/2016, Additional history exists Well Visit 65+ 2020 Covid-19 Vaccine (2023-2 5 season) 2024 05/29/2022, 11/30/2021, 06/28/2021, Additional history exists Influenza Vaccine (#1) 2024 3, 06/05/2021, 05/30/2020, Additional history exists Zoster Vaccine Completed 08/09/2020, 05/30/2020 Pneumococcal vaccine 65+ Completed 06/19/2021, 09/2019 Procedures Procedure Name Priority Date/Time Associated Diagnosis Comments POC INFLUENZA A/B, COVID-19 ANTIGEN Routine 09/04/2024 6:53 PM SOLUTION STRATEGIST COVID from Last 3 Months Results * (ABNORMAL) POC Influenza A/B, COVID-19 antigen (09/04/2024 6:53 PM SOLUTION STRATEGIST) Influenza A Ag, POC Negative Negative [facility] Influenza B Ag, POC Negative Negative [facility] COVID-19 Ag POC Positive(A) Presumptive Negative, Invalid [facility] Nasal 09/04/2024 6:53 PM SOLUTION STRATEGIST Reshma [place] POINT OF CARE TEST ORDER DOC Final Result [facility] [place] [address], [facility] from Last 3 Months Insurance [employer]IGNA [facility] Care Teams Director Of Religious Activities Relationship Specialty Start Date End Date Yadiel Leon DO PCP - General Family Medicine 02/09/23
== END 2024-10-24 15:23 | disposition home or self-care (01) ==
LOC: ANHIMG 15:23
PROVIDERS: PCP Family Medicine; Visit Provider Family Medicine
DX: Z12.31 Encounter for screening mammogram for malignant neoplasm of breast (principal)
CPT/HCPCS: 77063; 77067

== ENCOUNTER 2024-11-05 07:28 | Emergency (ER) | payer OTHER, SELFPAY ==
[2024-11-05] VITALS (7 sets, daily range): BP systolic 130–144; BP diastolic 73–84; PULSE 67–91; RESP 16–23; TEMP 36.4–36.5; O2SAT 73–100
--- NOTE | ~2024-11-05 | XR_ITS ---
EXAMINATION: XR chest 1V portable DATE: 11/05/2024 08:00 INDICATION: Right chest pain. TECHNIQUE: A single frontal view of the chest was obtained. COMPARISON: Chest 2 views 01/11/2022 FINDINGS: There is no pneumonia, pleural effusion, or pneumothorax. The heart size is normal. There i s a moderate-sized hiatal hernia. IMPRESSION: 1. Moderate-sized hiatal hernia. Reviewed, dictated and finalized at location B.
--- NOTE | 2024-11-05 07:29 | ECG_ITS ---
Test Date: 2024-11-05 07:38:30 Measurements Intervals Prosser Rate: 83 P: 39 MN: 187 QRS: 27 QRSD: 104 T: 14 QT: 371 QTc: 436 Interpretive Statements SINUS RHYTHM NONSPECIFIC T-WAVE ABNORMALITY No previous ECG available for comparison Electronically Signed On 11-05-2024 11:39:28 CDT by Miguel Mcdonald M.D.
--- OUTSIDE RECORDS SUMMARY | 2024-11-05 07:35 | XMS_ITS | Clinical Summary ---
Author Organization [facility] Address [address] [place] [address] Care Team Providers Care Emission Technician Name Role Phone CarolynYadiel Primary Care Provider [phone] Allergies No known active allergies Medications amLODIPine [...] Department Care Team Description 09/04/2024 6:00 PM POST TENSIONING IRONWORKER HELPER Office Visit [facility] Convenient Care at [address] [address] Reshma Roberts PA COVID (Primary [...] on file Legal Sex Female 6:23 AM POST TENSIONING IRONWORKER HELPER Gender Identity Not on file Sexual Orientation Not on file Obstetrics History Last Filed Vital Signs Vital Sign Reading Time Taken Comments Blood Pressure 142/85 09/04/2024 6:26 PM POST TENSIONING IRONWORKER HELPER Pulse 108 09/04/2024 6:26 PM POST TENSIONING IRONWORKER HELPER Temperature 36.8 C (98.3 F) 09/04/2024 6:26 PM POST TENSIONING IRONWORKER HELPER Respiratory Rate 20 09/04/2024 6:26 PM POST TENSIONING IRONWORKER HELPER Oxygen Saturation 96% 09/04/2024 6:26 PM POST TENSIONING IRONWORKER HELPER Inhaled Oxygen Concentration - - Weight 67 kg (147 lb 9.6 oz) 09/04/2024 6:26 PM POST TENSIONING IRONWORKER HELPER Height 154.9 cm (5' 1 ) 09/04/2024 6:26 PM POST TENSIONING IRONWORKER HELPER Body Mass Index 27.89 09/04/2024 6:26 PM POST TENSIONING IRONWORKER HELPER Plan of Treatment Health Maintenance Due Date [...] A/B, COVID-19 ANTIGEN Routine 09/04/2024 6:53 PM POST TENSIONING IRONWORKER HELPER COVID from Last 3 Months Results * (ABNORMAL) POC Influenza A/B, COVID-19 antigen (09/04/2024 6:53 PM POST TENSIONING IRONWORKER HELPER) Influenza A Ag, POC Negative Negative [facility] Influenza B Ag, POC Negative Negative [facility] COVID-19 Ag POC Positive(A) Presumptive Negative, Invalid [facility] Nasal 09/04/2024 6:53 PM POST TENSIONING IRONWORKER HELPER Reshma [place] POINT OF CARE TEST ORDER DOC Final Result [facility] [place] [address], [email or web address] from Last 3 Months Insurance CIGNA [facility] Care Teams Emission Technician Relationship Specialty Start Date End Date Yadiel Leon DO PCP - General Family Medicine 02/09/23
--- OUTSIDE RECORDS SUMMARY | 2024-11-05 07:35 | XMS_ITS | Clinical Summary ---
Author Organization [facility] Administrative Offices Address [address] [place] [address] Care Team Providers Care Lidar Analyst Name Role Phone Virgil Shay MD Primary Care Provider [phone] Allergies No known active allergies Medications lovastatin [...] on file Legal Sex Female 3:23 AM QA TECH Gender Identity Not on file Sexual Orientation Not on file Last Filed Vital Signs Vital Sign Reading Time Taken Comments Blood Pressure 120/86 10/12/2016 8:19 AM QA TECH Pulse 88 10/12/2016 8:19 AM QA TECH Temperature 37.1 C (98.8 F) 10/12/2016 8:19 AM QA TECH Respiratory Rate - - Oxygen Saturation 95% 10/12/2016 8:19 AM QA TECH Inhaled Oxygen Concentration - - Weight 76.7 kg (169 lb) 10/12/2016 8:19 AM QA TECH Height 154.9 cm (5' 1 ) 10/12/2016 8:19 AM QA TECH Body Mass Index 31.93 10/12/2016 8:19 AM QA TECH Plan of Treatment Health Maintenance Due Date Last Done Comments DTAP/TDAP/TD VACCINES (1 - Tdap) 1974 COLORECTAL SCREENING 2000 Colorectal Cancer Screening 2000 FIT-DNA Q 3 years 2000 FIT/FOBT Q 1 year 2000 Flex Sig/CT Colonography Q 5 years 2000 PNEUMOCOCCAL VACCINE 50+ YEA RS (1 of 1 - PCV) [...] Most Recently Relevant to Health Maintenance Insurance [facility] BLUE PREFERRED Care Teams Lidar Analyst Relationship Specialty Start Date End Date Virgil Shay MD [address] [place] [address] [place] [address] PCP - General Family Practice 10/12/16
--- OUTSIDE RECORDS SUMMARY | 2024-11-05 07:35 | XMS_ITS | Clinical Summary ---
Author Organization [facility] Address [address] [place] [address] Care Team Providers Care Tube Station Attendant Name Role Phone Unavailable Primary Care Provider [...]
--- OUTSIDE RECORDS SUMMARY | 2024-11-05 07:35 | XMS_ITS | Referral Summary ---
Author Organization [facility] Address [address] [place] [address] Care Team Providers Care Senior Ui Developer Name Role Phone Yadiel Leon Primary Care Provider [phone] Encounters Date Type Department Care Team Description 09/04/2024 6:00 PM VP PACKAGING Office Visit [facility] Convenient Care at [address] [address] Reshma Roberts PA COVID (Primary [...] on file Legal Sex Female 6:23 AM VP PACKAGING Gender Identity Not on file Sexual Orientation Not on file Last Filed Vital Signs Vital Sign Reading Time Taken Comments Blood Pressure 142/85 09/04/2024 6:26 PM VP PACKAGING Pulse 108 09/04/2024 6:26 PM VP PACKAGING Temperature 36.8 C (98.3 F) 09/04/2024 6:26 PM VP PACKAGING Respiratory Rate 20 09/04/2024 6:26 PM VP PACKAGING Oxygen Saturation 96% 09/04/2024 6:26 PM VP PACKAGING Inhaled Oxygen Concentration - - Weight 67 kg (147 lb 9.6 oz) 09/04/2024 6:26 PM VP PACKAGING Height 154.9 cm (5' 1 ) 09/04/2024 6:26 PM VP PACKAGING Body Mass Index 27.89 09/04/2024 6:26 PM VP PACKAGING Plan of Treatment Not on file Procedures Procedure Name Priority Date/Time Associated Diagnosis Comments POC INFLUENZA A/B, COVID-19 ANTIGEN Routine 09/04/2024 6:53 PM VP PACKAGING COVID from Last 3 Months Results * (ABNORMAL) POC Influenza A/B, COVID-19 antigen (09/04/2024 6:53 PM VP PACKAGING) Influenza A Ag, POC Negative Negative [facility] Influenza B Ag, POC Negative Negative [facility] COVID-19 Ag POC Positive(A) Presumptive Negative, Invalid [facility] Nasal 09/04/2024 6:5 3 PM VP PACKAGING us Reshma [place] POINT OF CARE TEST ORDER DOC Final Result [facility] ED[facility] [address] [place] [address], [facility] from Last 3 Months Insurance [employer] Care Teams Senior Ui Developer Relationship Specialty Start Date End Date Yadiel Leon DO PCP - General Family Medicine 02/09/23
--- OUTSIDE RECORDS SUMMARY | 2024-11-05 07:36 | XMS_ITS | Continuity of Care Document ---
Author Organization [facility] Address [address] [facility] [place] [address] Phone Care Team Providers Care Will Call Order Clerk Name Role Phone José Miguel Shields MD, MD Unavailable Unavailable Allergies, Adverse Reactions, Alerts Substance Reaction Status Criticality No Known Allergies Active No Inform ation Medications Medication Instructions Dosage Effective Dates (start - stop) Status Comments Miebo 100 % eye drops instill 1 drop by ophthalmic route 4 times every day into both eyes for dryness - Active Please call pt at [phone] omeprazole 20 mg tablet,delayed release - Active [...] 1 capsule by oral route every month 57365 UNITS - Active L-Lysine 500 mg tablet [...] Provider Providers Copied on Encounter [facility], [address] [place] [address], [id number], tel:[phone] OPH CONSULT MU DUONG Post OP (chief complaint) Other specified postprocedural states Alyson Valdez. [address] [facility], [address], [place], [place], [id number], [place]. tel:[phone] Referring Provider: Christel Sandra OD, [address], [place], [place], [id number]. tel:[phone] [facility], [address] [place] [address], [place], [place], [id number], tel:[phone] OPH CONSULT MU DUONG YAG PC (chief complaint) Presence of intraocular lens 5 Alyson Valdez. [address] [facility], [address], [place], [place], [id number], [place]. tel:[phone] Referring Provider: Christel Sandra OD, [address] [facility], [place], [place], [id number]. tel:[phone] [facility], [address] [place] [address], [id number], [place] tel:[phone] OPH CONSULT MU DUONG Post Op (chief complaint) Presence of intraocular lens 5 Valentin Lopez. [address] [facility], [address] [facility], [place], [address], [place]. tel:[phone] Referring Provider: Christel Sandra OD, [address], [place], [place], [id number]. tel:[phone] [facility], [address] [place] [address], [id number], tel:[phone] OPH CONSULT MU DUONG Post op (chief complaint) Presence of intraocular lens 5 Valentin Lopez. [address] [place] [address], [place] [address], [place], [address], [place]. tel:[phone] Referring Provider: Christel Sandra OD, [address], [place], [place], [id number]. tel:[phone] [facility], [address] [place] [address], [id number], [place] tel:[phone] OPH CONSULT MU DUONG post op (chief complaint) Presence of intraocular lens 4 Valentin Mays [address] [place] [address], [place] [address], [place], [address], [place]. tel:[phone] Referring Provider: Christel Sandra OD, [address], [place] , [place], [id number]. tel:[phone] [facility], [address] [place] [address], [id number], [place] tel:[phone] OPH CONSULT MU DUONG Post-Op (chief complaint) Age-related nuclear cataract, left eye 4 Valentin Mays [address] [place] [address], [address] [facility], [place], [address], [place]. tel:[phone] Referring Provider: Christel Sandra OD, [address], [place], [place], [id number]. tel:[phone] [facility], [address] [place] [address], [place], [place], [id number], [place] tel:[phone] OPH CONSULT MU DUONG Post Op (chief complaint) Presence of intraocular lens 4 Valentin Lopez. [address] [facility], [address], [place], [address], [place]. tel:[phone] Referring Provider: Christel Sandra OD, [address], [facility], [place], [id number]. tel:[phone] [facility], [address] [place] [address] 201, [place], [place], [id number], [place] tel:[phone] [facility] [place] No Information 4 Alsyon Valdez. [address], [address], [place], [place], [address], [place]. tel:[phone] Referring Provider: Christel Sandra OD, [address], [place], [place], [id number]. tel:[phone] [facility], [address] [place] [address], [place], [place], [id number], [place] tel:[phone] [facility] [place] No Information 4 Alyson Valdez. [address], [address], [place], [place], [id number], [place]. tel:[phone] Referring Provider: Christel Mosesl OD, [address], [place], [place], [id number]. tel:[phone] [facility], [address] [place] [address], [place], [place], [id number], [place] tel:[phone] OPH CONSULT MU DUONG No Information 4 Alyson Valdez. [address], [address], [place], [place], [address], [place]. tel:[phone] Referring Provider: Christel Jocy OD, [address], [facility] [place], [id number]. tel:[phone] [facility], [address], [place], [place], [id number], [place] tel:[phone] OPH CONSULT MU DUONG No Information 4 Valentin Lopez. [address] [facility], [address], [place], [address], [place]. tel:[phone] Referring Provider: Christel Jocy OD, [address], [place] , [place], [id number]. tel:[phone] [facility], [address], [place], [place], [id number], [place] tel:[phone] OPH CONSULT MU DUONG No Information 4 Alyson Valdez. [address], [address], [place], [place], [id number], [place]. tel:[phone] Referring Provider: Christel Mosesl OD, [address], [facility], [id number]. tel:[phone] [facility], [address] [place], [place] [address], [place], [place], [address], [place] tel:[phone] [facility] [place] No Information 4 Alyson Valdez. [address], [address], [place], [place], [id number], [place]. tel:[phone] Referring Provider: Christel Jocy OD, [address], [place] , [place], [id number]. tel:[phone] [facility], [address], [place], [place], [id number], [place] tel:[phone] OPH CONSULT MU DUONG No Information 4 Valentin Lopez. [address] [facility], [address], [place], [address], [place]. tel:[phone] Referring Provider: Christel Jocy OD, [address], [place], [place], [id number]. tel:[phone] [facility], [address] [place] [place] [address], [place], [place], [id number], tel:[phone] OPH CONSULT MU DUONG No Information 4 Alyson Valdez. [address], [address], [place], [place], [address], . tel:[phone] Referring Provider: Christel Sandra OD, [address], [place], [place], [id number]. tel:[phone] OFFICE/OUTPA TIENT VISIT, [facility], [address] [address], [place], [place], [id number], tel:[phone] OPH CONSULT MU DUONG Cataract Evaluation (chief complaint)F loaters (chief complaint)l esion (chief complaint) Age-related nuclear cataract, bilateralKerat oconjunct sicca, not specified as Sjogren's, bilateralOther vitreous opacities, bilateralDerma tochalasis of right upper eyelidDermatoc halasis of right lower eyelidDermatoc halasis of left upper eyelidDermatoc halasis of left lower eyelid 4 Alyson Valdez. [address], [address], [place], [place], [id number], [place]. tel:[phone] Referring Provider: Christel Sandra OD, [address], [place], [place], [id number]. tel:[phone] Family History Family Member Type Diagnosis Age At Onset Mother Problem Glaucoma Payers Payer name Insurance type Covered constitution party ID Authormarilu flores(s) Ryann CI [id number] Social History Type Description Quantity Date Captured [...] BCL. Near vision seems oksince Sx. Using Rrba-Rgql-Mibw and Systane every hour OU and Meibo [...] Near vision seems ok since Sx. Using Ujuc-Rlat-Qhrn and Systane every hour OU and Meibo QID OS only -Needs a refill of Meibo - do we have any samples s/p PCIOL OU 2023s/p YAG OU 2023 YAG PC Std/D GILSON; OU OR A OU, YAG OU, Hx of myopic lasik OUOD: GILSON target: -0.75sph (mini Rock)OS: [place]SON Target: [place] (dom eye)Referred by Dr. Christel MoseslPatient states [...] myopic lasik OUOD: [place]IL[place] target: -0.75sph (mini Rock)OS: [place] Target: [place] (dom eye)Referred by Dr. Christel Sandra Post [...] myopic lasik OUOD: [place]IL[place] target: -0.75sph (mini Rock)OS: [place] Target: [place] (dom eye)Referred by Dr. Christel Sandra post [...] myopic lasik OUOD: GILSON target: -0.75sph (mini Rock)OS: [place]IL[place] Target: [place] (dom eye)Referred by Dr. Christel Sandra Post-Op [...] myopic lasik OUOD: GILSON target: -0.75sph (mini Rock)OS: [place] Target: [place] (dom eye)Referred by Dr. Christel Sandra. Post [...] GILSON; OUORA OU YAG OUs.p myopic lasik; EMEbwj-Paye-Btmg TID, AT PRN; OSReferred by Dr. Christel [...] OU; 1999Referred by Dr. 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
[2024-11-05 07:39] LABS: Basophils Percent Auto 0.2 % (0.2-1.2); Hematocrit 45.7 % (37.0-47.0); Hemoglobin 15.5 g/dL (12.0-15.0); Immature Granulocyte Absolute 0.04 K/mm3 (0.00-0.031); Immature Granulocyte Percent A 0.3 % (0-0.5); Lymphocytes Absolute Auto 0.59 K/mm3 (0.9-3.2); Lymphocytes Percent Auto 4.5 % (18.3-44.2); Mean Corpuscular HGB Conc 33.9 g/dl (32-36); Mean Corpuscular Hemoglobin 31.2 pg (26-34); Mean Platelet Volume 9.7 fl (7.4-10.4); Monocytes Absolute Auto 0.2 K/mm3 (0.1-0.6); Monocytes Percent Auto 1.8 % (2.6-8.5); Neutrophils Absolute Auto 12.3 K/mm3 (1.3-6.7); Neutrophils Percent Auto 93.2 % (45.5-73.1); Platelet Count Result 253 k/mm3 (150-375); Red Blood Count 4.97 M/mm3 (4.2-5.4); Red Cell Distribution Width 12.1 % (11.5-14.5); White Blood Count 13.2 K/mm3 (4.5-10.0)
[2024-11-05] MEDS: ASPIRIN 81 MG CHEWABLE TABLET 324 MG PO (07:39)
--- NOTE | 2024-11-05 07:39 | ED_ITS ---
HPI - Chest Pain General Chief Complaint: Chest Pain Stated Complaint: cp Time Seen by Provider: 11/05/24 07:30 History of Present Illness HPI narrative: Pt presents with constant CP since 10 pm last night. Pt had emesis x 3. Pain is worse when lying flat and better when upright. No pain with exertion. Related Data Home Medications ?Medication ?Instructions ?Recorded ?Confirmed ?Last Taken ?Type L-Lysine Complex 1 tab-cap PO DAILY 07/13/22 09/10/24 12/04/23 History psyllium husk 0.4 gram capsule 0.4 g PO DAILY 07/13/22 09/10/24 Unknown History (Metamucil) ascorbic acid (vitamin C) 500 mg 500 mg PO DIRECTED 05/09/23 09/10/24 12/04/23 History capsule Allergies Allergy/AdvReac Type Severity Reaction Status Date / Time No Known Allergies Allergy Verified 11/05/24 07:37 Review of Systems 2 Review of Systems: All systems reviewed & are unremarkable except as noted in HPI and below PMFSH Past Medical History Medical History HTN (hypertension) Hyperlipidemia LDL goal <130 Surgical History Surgical History History of tubal ligation H/O vaginal hysterectomy Family History Family History Mother , Age 80 - Alzheimer's Disease No problems noted. Father , Age 78 - Myocardial Infarction No problems noted. Grandparent , - Myocardial Infarction No problems noted. Grandparent , - Myocardial Infarction No problems noted. Grandparent , Age 80 - Alzheimer's Disease No problems noted. Grandparent , - Myocardial Infarction No problems noted. Sibling , Age 42 - Myocardial Infarction No problems noted. Sibling , Age 57 - Cancer No problems noted. Unknown Hypertension Heart disease Cerebrovascular accident Social History Social History Smoking status: Never smoker Alcohol intake: current Drinks per week: 1 Alcohol use details: rarely Substance use: never Substance use type: does not use Do You Feel Safe in your Home?: Yes Lack of Transportation: No Lack of Food: Never True Current Housing: I Have Housing Concerned About Future Housing: No Difficulty Paying Gas/Electric Bills: No Difficulty Paying for Meds: No Currently Unemployed: No Education: Master's Degree or Higher Difficulty w/ Childcare or Family Care: No Living arrangements: with family Spiritual care concerns: No Course Vital Signs Vital signs: Vital Signs Pulse Rate 91 11/05/24 07:35 Respiratory Rate 16 11/05/24 07:35 Blood Pressure 138/84 11/05/24 07:35 Pulse Oximetry 99 11/05/24 07:35 Temperature 97.7 F 11/05/24 08:52 Pulse Rate 80 11/05/24 09:45 Respiratory Rate 16 11/05/24 08:52 Blood Pressure 142/74 H 11/05/24 09:45 Pulse Oximetry 99 11/05/24 09:45 Oxygen Delivery Room Air 11/05/24 07:40 MDM - Chest Pain MDM Narrative Medical decision making narrative: Pt presents with epigastric burning into chest with emesis x 3. Pt has history of hiatal hernia and GERD. seems likely GI but will get one trop and ekg and cardiac labs to rule out acs and give protonix and some pain meds and zofran. Pt feels much better after meds. comfortable going home. Lab Data 11/05/24 07:35 11/05/24 07:35 Labs: Lab Results 11/05/24 Range/Units 07:35 WBC 13.2 H (4.5-10.0) K/mm3 RBC 4.97 (4.2-5.4) M/mm3 Hgb 15.5 H (12.0-15.0) g/dL Hct 45.7 (37.0-47.0) % MCV 92.0 (80-100) fl MCH 31.2 (26-34) pg MCHC 33.9 (32-36) g/dl RDW 12.1 (11.5-14.5) % Plt Count 253 (150-375) k/mm3 MPV 9.7 (7.4-10.4) fl Immature Gran % (Auto) 0.3 (0-0.5) % Neut % (Auto) 93.2 H (45.5-73.1) % Lymph % (Auto) 4.5 L (18.3-44.2) % Steele % (Auto) 1.8 L (2.6-8.5) % Eos % (Auto) 0.0 (0-4.4) % Baso % (Auto) 0.2 (0.2-1.2) % Lymph # (Auto) 0.59 L (0.9-3.2) K/mm3 Steele # (Auto) 0.2 (0.1-0.6) K/mm3 Eos # (Auto) 0.0 (0-0.3) K/mm3 Baso # (Auto) 0.0 (0.0-0.1) K/mm3 Abs Immat Gran (auto) 0.04 H (0.00-0.031) K/mm3 Absolute Neuts (auto) 12.3 H (1.3-6.7) K/mm3 Absolute Nucleated RBC 0.000 (0.0-0.012) K/mm3 Nucleated RBC % 0.0 (0.0-0.2) % PT 12.7 (11.1-14.7) Seconds INR 0.9 APTT 25.0 (22.3-36.8) Seconds Sodium 136 L (137-145) mmol/L Potassium 3.7 (3.4-5.0) mmol/L Chloride 102 (98-107) mmol/L Carbon Dioxide 20 L (22-30) mmol/L Anion Gap 14 H (4-12) mmol/L BUN 11 (7-17) mg/dL Creatinine 0.64 L (0.7-1.0) mg/dL Estim Creat Clear Calc Not Reportable Estimated GFR > 60 (59 - ) Glucose 140 H (65-110) mg/dL Calcium 9.1 (8.4-10.2) mg/dL Total Bilirubin 1.4 H (0.2-1.3) mg/dL AST 23 (14-36) U/L ALT 22 (6-35) U/L Alkaline Phosphatase 106 (38-126) U/L Troponin I < 0.012 (0.000-0.034) ng/mL Total Protein 8.0 (6.3-8.2) g/dL Albumin 4.7 (3.5-5.1) g/dL Lipase 122 (23-300) U/L Discharge Plan Discharge Clinical Impression: GERD (gastroesophageal reflux disease) Patient Disposition: Home, Self-Care Condition: Improved Instructions: Antibiotic Form, GERD (Gastroesophageal Reflux Disease) (DC) Patient Language: Ukrainian Prescriptions: No Action omeprazole 40 mg capsule,delayed release(DR/EC) 40 mg PO DAILY Qty: 30 3RF benzonatate 200 mg capsule 200 mg PO TID PRN (Reason: cough) Qty: 60 1RF psyllium husk [Metamucil] 0.4 gram Capsule 0.4 g PO DAILY L-Lysine Complex 1 tab-cap PO DAILY Calcium-Vitamin D 1 tab-cap PO DAILY Qty: 90 0RF ascorbic acid (vitamin C) 500 mg capsule 500 mg PO DIRECTED denosumab 60 mg/mL syringe 60 mg subcut [id number] Qty: 1 2RF amlodipine 5 mg tablet See Rx Instructions .ROUTE .COMPLEX Qty: 30 11RF Dose Instruction: TAKE 1 TABLET DAILY Rx Instructions: TAKE 1 TABLET DAILY ferrous sulfate 325 mg (65 mg iron) tablet 325 mg PO DAILY Qty: 90 1RF lovastatin 20 mg tablet See Rx Instructions .ROUTE .COMPLEX Qty: 90 0RF Dose Instruction: TAKE 1 TABLET DAILY Rx Instructions: TAKE 1 TABLET DAILY Follow-up/Referrals: Nithya Cordon DO [Primary Care Provider] - Quality HEART score for chest pain patients History: slightly suspicious ECG: normal Age: > or = to 65 years Risk factors: 1 or 2 risk factors Troponin: < or = to 1x normal limit Heart score: 3
[2024-11-05 07:51] LABS: Alanine Aminotransferase 22 U/L (6-35); Albumin Level 4.7 g/dL (3.5-5.1); Alkaline Phosphatase 106 U/L (38-126); Anion Gap 14 mmol/L (4-12); Aspartate Amino Transferase 23 U/L (14-36); Bilirubin,Total 1.4 mg/dL (0.2-1.3); Blood Urea Nitrogen 11 mg/dL (7-17); Calcium 9.1 mg/dL (8.4-10.2); Carbon Dioxide 20 mmol/L (22-30); Chloride 102 mmol/L (98-107); Estimated Glomerular Filt Rate > 60; Glucose 140 mg/dL (65-110); Lipase 122 U/L (23-300); Potassium 3.7 mmol/L (3.4-5.0); Sodium 136 mmol/L (137-145)
[2024-11-05] MEDS: ONDANSETRON INJ 4 MG/2 ML VIAL IV PUSH (07:57)
[2024-11-05] MEDS: PANTOPRAZOLE SODIUM IV 40 MG VIAL IV PUSH (07:57)
[2024-11-05 08:01] LABS: Troponin I < 0.012 ng/mL (0.000-0.034)
[2024-11-05 08:04] LABS: INR 0.9; Prothrombin Time 12.7 Seconds (11.1-14.7)
[2024-11-05] MEDS: fentaNYL CITRATE INJ (*CRX) 100 MCG/2 ML VIAL 25 MCG IV PUSH (08:50)
--- NOTE | 2024-11-05 08:52 | PC.NURSE ---
Pt reports nausea improved, epigastric remains unchanged. Medicated per order
--- OUTSIDE RECORDS SUMMARY | 2024-11-05 09:11 | XMS_ITS | Clinical Summary ---
Author Organization [facility] Address [address] [place] [address] Care Team Providers Care Residential Fee Appraiser Name Role Phone Unavailable Primary Care Provider [...]
--- OUTSIDE RECORDS SUMMARY | 2024-11-05 09:11 | XMS_ITS | Continuity of Care Document ---
Author Organization [facility] Address [address] [facility] [address] [place] [address] Phone Care Team Providers Care Senior Oracle Database Developer Name Role Phone José Miguel Shields MD, MD Unavailable Unavailable Allergies, Adverse Reactions, Alerts Substance Reaction Status Criticality No Known Allergies Active No Inform ation Medications Medication Instructions Dosage Effective Dates (start - stop) Status Comments Miebo 100 % eye drops instill 1 drop by ophthalmic route 4 times every day into both eyes for dryness - Active Please call pt at [phone] omeprazole 20 mg tablet,delayed release - Active [...] 1 capsule by oral route every month 97548 UNITS - Active L-Lysine 500 mg tablet [...] Provider Providers Copied on Encounter [facility], [address] [place] [address], [id number], tel:[phone] OPH CONSULT MU DUONG Post OP (chief complaint) Other specified postprocedural states Alyson Valdez. [address] [facility] [address] [facility], [address], [place], [place], [id number], [place]. tel:[phone] Referring Provider: Christel Sandra OD, [address], [place], [place], [id number]. tel:[phone] [facility], [address] [place] [address], [place], [place], [id number], tel:[phone] OPH CONSULT MU DUONG YAG PC (chief complaint) Presence of intraocular lens 5 Alyson Valdez. [address] [facility], [address], [place], [place], [id number], [place]. tel:[phone] Referring Provider: Christel Sandra OD, [address] [facility], [place], [place], [id number]. tel:[phone] [facility], [address] [place] [address], [id number], [place] tel:[phone] OPH CONSULT MU DUONG Post Op (chief complaint) Presence of intraocular lens 5 Valentin Lopez. [address] [facility], [address] [facility], [place], [address], [place]. tel:[phone] Referring Provider: Christel Sandra OD, [address], [place], [place], [id number]. tel:[phone] [facility], [address] [place] [address], [id number], tel:[phone] OPH CONSULT MU DUONG Post op (chief complaint) Presence of intraocular lens 5 [address] [place] [address], [place] [address], [place], [address], [place]. tel:[phone] Referring Provider: Christel Sandra OD, [address], [place], [place], [id number]. tel:[phone] [facility], [address] [place] [address], [id number], [place] tel:[phone] OPH CONSULT MU DUONG post op (chief complaint) Presence of intraocular lens 4 Valent[address] Mays [address] [place] [address], [place] [address], [place], [address], [place]. tel:[phone] Referring Provider: Christel Sandra OD, [address], [place] , [place], [id number]. tel:[phone] [facility], [address] [place] [address], [id number], [place] tel:[phone] OPH CONSULT MU DUONG Post-Op (chief complaint) Age-related nuclear cataract, left eye 4 Valentin Mays [address] [place] [address], [address] [facility], [place], [address], [place]. tel:[phone] Referring Provider: Christel Sandra OD, [address], [place], [place], [id number]. tel:[phone] [facility], [address] [place] [address], [place], [place], [id number], [place] tel:[phone] OPH CONSULT MU DUONG Post Op (chief complaint) Presence of intraocular lens 4 Valentin Lopez. [address] [facility], [address], [place], [address], [place]. tel:[phone] Referring Provider: Christel Sandra OD, [address], [facility], [place], [id number]. tel:[phone] [facility], [address] [place] [address], [place], [place], [id number], [place] tel:[phone] [facility] [place] No Information 4 Alyson Valdez. [address], [address], [place], [place], [id number], [place]. tel:[phone] Referring Provider: Christel Sandra OD, [address], [place], [place], [id number]. tel:[phone] [facility], [address] [place] [address], [place], [place], [id number], [place] tel:[phone] [facility] [place] No Information 4 Alyson Valdez. [address], [address], [place], [place], [id number], [place]. tel:[phone] Referring Provider: Christel Mosesl OD, [address], [place], [place], [id number]. tel:[phone] [facility], [address] [place] [address], [place], [place], [id number], [place] tel:[phone] OPH CONSULT MU DUONG No Information 4 Alyson Valdez. [address], [address], [place], [place], [id number], [place]. tel:[phone] Referring Provider: Christel Jocy OD, [address], [facility], [id number]. tel:[phone] [facility], [address], [place], [place], [id number], [place] tel:[phone] OPH CONSULT MU DUONG No Information 4 Valentin Lopez. [address] [facility], [address], [place], [address], [place]. tel:[phone] Referring Provider: Christel Jocy OD, [address], [place] , [place], [id number]. tel:[phone] [facility], [address], [place], [place], [id number], [place] tel:[phone] OPH CONSULT MU DUONG No Information 4 Alyson Valdez. [address], [address], [place], [place], [id number], [place]. tel:[phone] Referring Provider: Christel Mosesl OD, [address], [facility], [id number]. tel:[phone] [facility], [address] [place], [place] [address], [place], [place], [id number], [place] tel:[phone] [facility] [place] No Information 4 Alyson Valdez. [address], [address], [place], [place], [address], [place]. tel:[phone] Referring Provider: Christel Jocy OD, [address], [place] , [place], [id number]. tel:[phone] [facility], [address], [place], [place], [id number], [place] tel:[phone] OPH CONSULT MU DUONG No Information 4 Valentin Lopez. [address] [facility], [address], [place], [address], [place]. tel:[phone] Referring Provider: Christel Jocy OD, [address], [place], [place], [id number]. tel:[phone] [facility], [address] [address], [place], [place], [id number], tel:[phone] OPH CONSULT MU DUONG No Information 4 Alyson Valdez. [address], [address], [place], [place], [id number], . tel:[phone] Referring Provider: Christel Sandra OD, [address], [place], [place], [id number]. tel:[phone] OFFICE/OUTPA TIENT VISIT, [facility], [address] [address], [place], [place], [address], tel:[phone] OPH CONSULT MU DUONG Cataract Evaluation (chief complaint)F loaters (chief complaint)l esion (chief complaint) Age-related nuclear cataract, bilateralKerat oconjunct sicca, not specified as Sjogren's, bilateralOther vitreous opacities, bilateralDerma tochalasis of right upper eyelidDermatoc halasis of right lower eyelidDermatoc halasis of left upper eyelidDermatoc halasis of left lower eyelid 4 Alyson Valdez. [address], [address], [place], [place], [id number], [place]. tel:[phone] Referring Provider: Christel Sandra OD, [address], [place], [place], [id number]. tel:[phone] Family History Family Member Type Diagnosis Age At Onset Mother Problem Glaucoma Payers Payer name Insurance type Covered republican ID Authormarilu flores(s) Ryann CI [id number] Social History Type Description Quantity Date Captured [...] BCL. Near vision seems oksince Sx. Using Cwzt-Jzyz-Xgkt and Systane every hour OU and Meibo [...] Near vision seems ok since Sx. Using Ttsm-Nbqz-Mkzn and Systane every hour OU and Meibo QID OS only -Needs a refill of Meibo - do we have any samples s/p PCIOL OU 2023s/p YAG OU 2023 YAG PC Std/D GILSON; OU OR A OU, YAG OU, Hx of myopic lasik OUOD: GILSON target: -0.75sph (mini Mclennan)OS: GILSON Target: Burns (dom eye)Referred by Dr. Christel MoseslPatient states [...] myopic lasik OUOD: GILSON target: -0.75sph (mini Mclennan)OS: GILSON Target: Burns (dom eye)Referred by Dr. Christel Sandra Post [...] myopic lasik OUOD: GILSON target: -0.75sph (mini Mclennan)OS: GILSON Target: Burns (dom eye)Referred by Dr. Christel Sandra post [...] myopic lasik OUOD: GILSON target: -0.75sph (mini Mclennan)OS: GILSON Target: Burns (dom eye)Referred by Dr. Christel Sandra Post-Op [...] myopic lasik OUOD: GILSON target: -0.75sph (mini Mclennan)OS: GILSON Target: Burns (dom eye)Referred by Dr. Christel Sandra. Post [...] GILSON; OUORA OU YAG OUs.p myopic lasik; WBIffh-Xtml-Rrdz TID, AT PRN; OSReferred by Dr. Christel [...] OU; 1999Referred by Dr. 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
--- OUTSIDE RECORDS SUMMARY | 2024-11-05 09:11 | XMS_ITS | Referral Summary ---
Author Organization [facility] Address [address] [place] [address] Care Team Providers Care Radarman Name Role Phone Yadiel Leon Primary Care Provider [phone] Encounters Date Type Department Care Team Description 09/04/2024 6:00 PM STABLE MANAGER Office Visit [facility] at [address] [address] Reshma Roberts PA COVID [...] on file Legal Sex Female 6:23 AM STABLE MANAGER Gender Identity Not on file Sexual Orientation Not on file Last Filed Vital Signs Vital Sign Reading Time Taken Comments Blood Pressure 142/85 09/04/2024 6:26 PM STABLE MANAGER Pulse 108 09/04/2024 6:26 PM STABLE MANAGER Temperature 36.8 C (98.3 F) 09/04/2024 6:26 PM STABLE MANAGER Respiratory Rate 20 09/04/2024 6:26 PM STABLE MANAGER Oxygen Saturation 96% 09/04/2024 6:26 PM STABLE MANAGER Inhaled Oxygen Concentration - - Weight 67 kg (147 lb 9.6 oz) 09/04/2024 6:26 PM STABLE MANAGER Height 154.9 cm (5' 1 ) 09/04/2024 6:26 PM STABLE MANAGER Body Mass Index 27.89 09/04/2024 6:26 PM STABLE MANAGER Plan of Treatment Not on file Procedures Procedure Name Priority Date/Time Associated Diagnosis Comments POC INFLUENZA A/B, COVID-19 ANTIGEN Routine 09/04/2024 6:53 PM STABLE MANAGER COVID from Last 3 Months Results * (ABNORMAL) POC Influenza A/B, COVID-19 antigen (09/04/2024 6:53 PM STABLE MANAGER) Influenza A Ag, POC Negative Negative [facility] Influenza B Ag, POC Negative Negative [facility] COVID-19 Ag POC Positive(A) Presumptive Negative, Invalid [facility] Nasal 09/04/2024 6:5 3 PM STABLE MANAGER us Reshma [place] POINT OF CARE TEST ORDER DOC Final Result [facility] [address] [place] [address], [facility] from Last 3 Months Insurance [employer] Care Teams Radarman Relationship Specialty Start Date End Date Yadiel Leon DO PCP - General Family Medicine 02/09/23
--- OUTSIDE RECORDS SUMMARY | 2024-11-05 09:11 | XMS_ITS | Clinical Summary ---
Author Organization [facility] Offices Address [address] [place] [address] Care Team Providers Care Cage Loader Name Role Phone Virgil Shay MD Primary Care Provider [phone] Allergies No known active allergies Medications lovastatin [...] on file Legal Sex Female 3:23 AM DATA MINING ANALYST Gender Identity Not on file Sexual Orientation Not on file Last Filed Vital Signs Vital Sign Reading Time Taken Comments Blood Pressure 120/86 10/12/2016 8:19 AM DATA MINING ANALYST Pulse 88 10/12/2016 8:19 AM DATA MINING ANALYST Temperature 37.1 C (98.8 F) 10/12/2016 8:19 AM DATA MINING ANALYST Respiratory Rate - - Oxygen Saturation 95% 10/12/2016 8:19 AM DATA MINING ANALYST Inhaled Oxygen Concentration - - Weight 76.7 kg (169 lb) 10/12/2016 8:19 AM DATA MINING ANALYST Height 154.9 cm (5' 1 ) 10/12/2016 8:19 AM DATA MINING ANALYST Body Mass Index 31.93 10/12/2016 8:19 AM DATA MINING ANALYST Plan of Treatment Health Maintenance Due Date [...] Most Recently Relevant to Health Maintenance Insurance [facility] BLUE PREFERRED Care Teams Cage Loader Relationship Specialty Start Date End Date Virgil Shay MD [address] [place] [address] [place] [address] PCP - General Family Practice 10/12/16
--- OUTSIDE RECORDS SUMMARY | 2024-11-05 09:11 | XMS_ITS | Clinical Summary ---
Author Organization [facility] Address [address] [place] [address] Care Team Providers Care Music Pastor Name Role Phone CarolynYadiel Primary Care Provider [phone] Allergies No known active allergies Medications amLODIPine [...] Department Care Team Description 09/04/2024 6:00 PM COST ANALYST Office Visit [facility]ient Care at [address] [address] Reshma Roberts PA COVID (Primary [...] on file Legal Sex Female 6:23 AM COST ANALYST Gender Identity Not on file Sexual Orientation Not on file Obstetrics History Last Filed Vital Signs Vital Sign Reading Time Taken Comments Blood Pressure 142/85 09/04/2024 6:26 PM COST ANALYST Pulse 108 09/04/2024 6:26 PM COST ANALYST Temperature 36.8 C (98.3 F) 09/04/2024 6:26 PM COST ANALYST Respiratory Rate 20 09/04/2024 6:26 PM COST ANALYST Oxygen Saturation 96% 09/04/2024 6:26 PM COST ANALYST Inhaled Oxygen Concentration - - Weight 67 kg (147 lb 9.6 oz) 09/04/2024 6:26 PM COST ANALYST Height 154.9 cm (5' 1 ) 09/04/2024 6:26 PM COST ANALYST Body Mass Index 27.89 09/04/2024 6:26 PM COST ANALYST Plan of Treatment Health Maintenance Due [...] A/B, COVID-19 ANTIGEN Routine 09/04/2024 6:53 PM COST ANALYST COVID from Last 3 Months Results * (ABNORMAL) POC Influenza A/B, COVID-19 antigen (09/04/2024 6:53 PM COST ANALYST) Influenza A Ag, POC Negative Negative [facility] Influenza B Ag, POC Negative Negative [facility] COVID-19 Ag POC Positive(A) Presumptive Negative, Invalid [facility] Nasal 09/04/2024 6:53 PM COST ANALYST Reshma [place] POINT OF CARE TEST ORDER DOC Final Result [facility] [place] [address], [facility] from Last 3 Months Insurance CIG[employer] [facility] Care Teams Music Pastor Relationship Specialty Start Date End Date Yadiel Leon DO PCP - General Family Medicine 02/09/23
== END 2024-11-05 09:53 | disposition home or self-care (01) ==
PROVIDERS: Emergency Provider Emergency Medicine; PCP Family Medicine
DX: K21.9 Gastro-esophageal reflux disease without esophagitis (principal); I10 Essential (primary) hypertension; E78.5 Hyperlipidemia, unspecified; Z90.710 Acquired absence of both cervix and uterus; R94.31 Abnormal electrocardiogram [ECG] [EKG]
CPT/HCPCS: 36415; 71045; 80053; 83690; 84484; 85025; 85610; 85730; 93005; 96374; 96375; 99284; A9270; J2405; J2470; J3010

== ENCOUNTER 2024-11-07 09:38 | Outpatient (CLI) | payer OTHER, SELFPAY ==
--- NOTE | ~2024-11-07 | XR_ITS ---
EXAMINATION: XR UGI w barium swallow DATE: 11/07/2024 10:39 INDICATION: Chest pain and epigastric pain TECHNIQUE: The patient drank thin and thick barium. Fluoroscopy of the hypopharynx and esophagus was performed. Fluoroscopy exposure time was 1.4 minutes. The total number of images was 111. The dose-area product was 12.2 Gy-cm^2. COMPARISON: Reference is made to a plain film evaluation of the chest performed most recently on 11/05 and dating back to 01/11/2022 FINDINGS: There is no aspiration or penetration on lateral view with thin barium. A large hiatal hernia is identified extending to the level of the rose and containing the majority of the patient's stomach which is air opacified and markedly dilated, likely the source of pain. No extrinsic compression is identified. Esophageal dysmotility is noted. The remainder of the stomach and proximal duodenum are unremarkable.. IMPRESSION: Large hiatal hernia for which contrast enhanced cross-sectional imaging as well as surgical evaluatio n is recommended, if the patient is clinically able. These findings and recommendations were discussed with patient's clinician (Carito Iverson) at the time of examination and interpretation. Reviewed, dictated and finalized at location A. IMPRESSION: Large hiatal hernia for which contrast enhanced cross-sectional imaging as well as surgical evaluation is recommended, if the patient is clinically able. These findings and recommendations were discussed with patient's clinician (Umesh Shaikh) at the time of examination and interpretation.
--- OUTSIDE RECORDS SUMMARY | 2024-11-07 10:35 | XMS_ITS | Continuity of Care Document ---
Author Organization [facility] Address [address] [facility] [address] [place] [address] Phone Care Team Providers Care Adobe Maker Name Role Phone José Miguel Shields MD, MD Unavailable Unavailable Allergies, Adverse Reactions, Alerts Substance Reaction Status Criticality No Known Allergies Active No Inform ation Medications Medication Instructions Dosage Effective Dates (start - stop) Status Comments Miebo 100 % eye drops instill 1 drop by ophthalmic route 4 times every day into both eyes for dryness - Active Please call pt at [phone] omeprazole 20 mg tablet,delayed release - Active [...] 1 capsule by oral route every month 98750 UNITS - Active L-Lysine 500 mg tablet [...] Provider Providers Copied on Encounter [facility], [address] [place] [address], [id number], tel:[phone] OPH CONSULT MU DUONG Post OP (chief complaint) Other specified postprocedural states Alyson Valdez. [address] [facility], [address], [place], [place], [id number], [place]. tel:[phone] Referring Provider: Christel Sandra OD, [address], [place], [place], [id number]. tel:[phone] [facility], [address] [place] [address], [place], [place], [id number], tel:[phone] OPH CONSULT MU DUONG YAG PC (chief complaint) Presence of intraocular lens 5 Alyson Valdez. [address] [facility], [address], [place], [place], [id number], [place]. tel:[phone] Referring Provider: Christel Sandra OD, [address] [facility], [place], [place], [id number]. tel:[phone] [facility], [address] [place] [address], [id number], [place] tel:[phone] OPH CONSULT MU DUONG Post Op (chief complaint) Presence of intraocular lens 5 Valentin Lopez. [address], [address] [facility], [place], [address], [place]. tel:[phone] Referring Provider: Christel Sandra OD, [address], [place], [place], [id number]. tel:[phone] [facility], [address] [place] [address], [id number], tel:[phone] OPH CONSULT MU DUONG Post op (chief complaint) Presence of intraocular lens 5 Valentin Lopez. [address] [place] [address], [place] [address], [place], [address], [place]. tel:[phone] Referring Provider: Christel Sandra OD, [address], [place], [place], [id number]. tel:[phone] [facility], [address] [place] [address], [id number], [place] tel:[phone] OPH CONSULT MU DUONG post op (chief complaint) Presence of intraocular lens 4 Valent[address] Mays [address] [place] [address], [place] [address], [place], [address], [place]. tel:[phone] Referring Provider: Christel Sandra OD, [address], [place] , [place], [id number]. tel:[phone] [facility], [address] [place] [address], [id number], [place] tel:[phone] OPH CONSULT MU DUONG Post-Op (chief complaint) Age-related nuclear cataract, left eye 4 Valentin Mays [address] [place] [address], [address] [facility], [place], [address], [place]. tel:[phone] Referring Provider: Christel Sandra OD, [address], [place], [place], [id number]. tel:[phone] [facility], [address] [place] [address], [place], [place], [id number], [place] tel:[phone] OPH CONSULT MU DUONG Post Op (chief complaint) Presence of intraocular lens 4 Valentin Lopez. [address], [address], [place], [address], [place]. tel:[phone] Referring Provider: Christel Sandra OD, [address], [facility], [place], [id number]. tel:[phone] [facility], [address] [place] [address] [address], [place], [place], [id number], [place] tel:[phone] [facility] [place] No Information 4 Alyson Valdez. [address], [address], [place], [place], [id number], [place]. tel:[phone] Referring Provider: Christel Sandra OD, [address], [place], [place], [id number]. tel:[phone] [facility], [address] [place] [address] 201, [place], [place], [id number], [place] tel:[phone] [facility] [place] No Information 4 Alyson Valdez. [address], [address], [place], [place], [id number], [place]. tel:[phone] Referring Provider: Christel Mosesl OD, [address], [place], [place], [id number]. tel:[phone] [facility], [address] [place] [address] [address], [place], [place], [id number], [place] tel:[phone] OPH CONSULT UM DUONG No Information 4 Alyson Valdez. [address], [address], [place], [place], [id number], [place]. tel:[phone] Referring Provider: Christel Jocy OD, [address], [facility], [place], [id number]. tel:[phone] [facility], [address], [place], [place], [id number], [place] tel:[phone] OPH CONSULT MU DUONG No Information 4 Valentin Lopez. [address], [address], [place], [address], [place]. tel:[phone] Referring Provider: Christel Jocy OD, [address], [place] , [place], [id number]. tel:[phone] [facility], [address], [place], [place], [id number], [place] tel:[phone] OPH CONSULT MU DUONG No Information 4 Alyson Valdez. [address], [address], [place], [place], [id number], [place]. tel:[phone] Referring Provider: Christel Mosesl OD, [address], [facility], [place], [id number]. tel:[phone] [facility], [address] [place], [place] [address], [place], [place], [id number], [place] tel:[phone] [facility] [place] No Information 4 Alyson Valdez. [address], [address], [place], [place], [id number], [place]. tel:[phone] Referring Provider: Christel Jocy OD, [address], [place] , [place], [id number]. tel:[phone] [facility], [address], [place], [place], [id number], [place] tel:[phone] OPH CONSULT MU DUONG No Information 4 Valentin Lopez. [address], [address], [place], [address], [place]. tel:[phone] Referring Provider: Christel Jocy OD, [address], [place], [place], [id number]. tel:[phone] [facility], [address] [address], [place], [place], [id number], tel:[phone] OPH CONSULT MU DUONG No Information 4 Alyson Valdez. [address], [address], [place], [place], [id number], . tel:[phone] Referring Provider: Christel Sandra OD, [address], [place], [place], [id number]. tel:[phone] OFFICE/OUTPA TIENT VISIT, [facility], [address] [address], [place], [place], [id number], tel:[phone] OPH CONSULT MU DUONG Cataract Evaluation (chief complaint)F loaters (chief complaint)l esion (chief complaint) Age-related nuclear cataract, bilateralKerat oconjunct sicca, not specified as Sjogren's, bilateralOther vitreous opacities, bilateralDerma tochalasis of right upper eyelidDermatoc halasis of right lower eyelidDermatoc halasis of left upper eyelidDermatoc halasis of left lower eyelid 4 Alyson Valdez. [address], [address], [place], [place], [address], [place]. tel:[phone] Referring Provider: Christel Sandra OD, [address], [place], [place], [id number]. tel:[phone] Family History Family Member Type Diagnosis Age At Onset Mother Problem Glaucoma Payers Payer name Insurance type Covered democrat ID Authormarilu flores(s) Ryann CI [id number] Social History Type Description Quantity Date Captured [...] BCL. Near vision seems oksince Sx. Using Chsa-Vxgm-Ustj and Systane every hour OU and Meibo QID OS only -Needs a refill of Meibo - do we have any samples s/p PCIOL OU 2023s/p YAG OU 2023 Plan Of Treatment Date Type Action Status Appointment Mireya Duatre BOOKED History Of Present Illness Encounter Date Complaint History Of Prese nt Illness Post OP The 69 year old female presents for evaluation of Post OP PRK OD. Vision seems to go in and out of focus and has a FBS, thinks due to BCL. Near vision seems ok since Sx. Using Kuik-Qupm-Biuc and Systane every hour OU and Meibo QID OS only -Needs a refill of Meibo - do we have any samples s/p PCIOL OU 2023s/p YAG OU 2023 YAG PC Std/D GILSON; OU OR A OU, YAG OU, Hx of myopic lasik OUOD: GILSON target: -0.75sph (mini [place])OS: GILSON Target: [place] (dom eye)Referred by Dr. Christel MoseslPatient states [...] myopic lasik OUOD: GILSON target: -0.75sph (mini [place])OS: [place] Target: [place] (dom eye)Referred by Dr. Christel Sandra Post [...] myopic lasik OUOD: GILSON target: -0.75sph (mini [place])OS: GILSON Target: [place] (dom eye)Referred by Dr. Christel Sandra post [...] myopic lasik OUOD: GILSON target: -0.75sph (mini [place])OS: GILSON Target: [place] (dom eye)Referred by Dr. Christel Sandra Post-Op [...] myopic lasik OUOD: GILSON target: -0.75sph (mini [place])OS: GILSON Target: [place] (dom eye)Referred by Dr. Christel Sandra. Post [...] GILSON; [place] OU YAG OUs.p myopic lasik; WOIfal-Uktb-Lduo TID, AT PRN; OSReferred by Dr. Christel [...] OU; 1999Referred by Dr. 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
--- OUTSIDE RECORDS SUMMARY | 2024-11-07 10:35 | XMS_ITS | Clinical Summary ---
Author Organization [facility] Address [address] [place] [address] Care Team Providers Care Buffer Chrome Name Role Phone Unavailable Primary Care Provider [...]
--- OUTSIDE RECORDS SUMMARY | 2024-11-07 10:35 | XMS_ITS | Clinical Summary ---
Author Organization [facility] Administrative Offices Address [address] [place] [address] Care Team Providers Care Drilling Foreman Name Role Phone Virgil Shay MD Primary Care Provider [phone] Allergies No known active allergies Medications lovastatin [...] on file Legal Sex Female 3:23 AM MANAGER OF INFORMATION Gender Identity Not on file Sexual Orientation Not on file Last Filed Vital Signs Vital Sign Reading Time Taken Comments Blood Pressure 120/86 10/12/2016 8:19 AM MANAGER OF INFORMATION Pulse 88 10/12/2016 8:19 AM MANAGER OF INFORMATION Temperature 37.1 C (98.8 F) 10/12/2016 8:19 AM MANAGER OF INFORMATION Respiratory Rate - - Oxygen Saturation 95% 10/12/2016 8:19 AM MANAGER OF INFORMATION Inhaled Oxygen Concentration - - Weight 76.7 kg (169 lb) 10/12/2016 8:19 AM MANAGER OF INFORMATION Height 154.9 cm (5' 1 ) 10/12/2016 8:19 AM MANAGER OF INFORMATION Body Mass Index 31.93 10/12/2016 8:19 AM MANAGER OF INFORMATION Plan of Treatment Health Maintenance Due Date [...] Most Recently Relevant to Health Maintenance Insurance [facility] BLUE PREFERRED Care Teams Drilling Foreman Relationship Specialty Start Date End Date Virgil Shay MD [address] [place] [address] [place] [address] PCP - General Family Practice 10/12/16
--- OUTSIDE RECORDS SUMMARY | 2024-11-07 10:35 | XMS_ITS | Clinical Summary ---
Author Organization [facility] Address [address] [place] [address] Care Team Providers Care Steamer Tender Name Role Phone CarolynYadiel Primary Care Provider [phone] Allergies No known active allergies Medications amLODIPine [...] Department Care Team Description 09/04/2024 6:00 PM SENIOR LOSS CONTROL SPECIALIST Office Visit [facility] at [address] [address] Reshma Roberts PA COVID (Primary [...] on file Legal Sex Female 6:23 AM SENIOR LOSS CONTROL SPECIALIST Gender Identity Not on file Sexual Orientation Not on file Obstetrics History Last Filed Vital Signs Vital Sign Reading Time Taken Comments Blood Pressure 142/85 09/04/2024 6:26 PM SENIOR LOSS CONTROL SPECIALIST Pulse 108 09/04/2024 6:26 PM SENIOR LOSS CONTROL SPECIALIST Temperature 36.8 C (98.3 F) 09/04/2024 6:26 PM SENIOR LOSS CONTROL SPECIALIST Respiratory Rate 20 09/04/2024 6:26 PM SENIOR LOSS CONTROL SPECIALIST Oxygen Saturation 96% 09/04/2024 6:26 PM SENIOR LOSS CONTROL SPECIALIST Inhaled Oxygen Concentration - - Weight 67 kg (147 lb 9.6 oz) 09/04/2024 6:26 PM SENIOR LOSS CONTROL SPECIALIST Height 154.9 cm (5' 1 ) 09/04/2024 6:26 PM SENIOR LOSS CONTROL SPECIALIST Body Mass Index 27.89 09/04/2024 6:26 PM SENIOR LOSS CONTROL SPECIALIST Plan of Treatment Health Maintenance Due Date [...] A/B, COVID-19 ANTIGEN Routine 09/04/2024 6:53 PM SENIOR LOSS CONTROL SPECIALIST COVID from Last 3 Months Results * (ABNORMAL) POC Influenza A/B, COVID-19 antigen (09/04/2024 6:53 PM SENIOR LOSS CONTROL SPECIALIST) Influenza A Ag, POC Negative Negative [facility] Influenza B Ag, POC Negative Negative [facility] COVID-19 Ag POC Positive(A) Presumptive Negative, Invalid [facility] Nasal 09/04/2024 6:53 PM SENIOR LOSS CONTROL SPECIALIST Reshma [place] POINT OF CARE TEST ORDER DOC Final Result [facility] [place] [address], [facility] from Last 3 Months Insurance [employer]IG[employer] [facility] Care Teams Steamer Tender Relationship Specialty Start Date End Date Yadiel Leon DO PCP - General Family Medicine 02/09/23
--- OUTSIDE RECORDS SUMMARY | 2024-11-07 10:35 | XMS_ITS | Referral Summary ---
Author Organization [facility] Address [address] [place] [address] Care Team Providers Care Sheet Ironworker Name Role Phone Yadiel Leon Primary Care Provider [phone] Encounters Date Type Department Care Team Description 09/04/2024 6:00 PM BLOW DOWN HELPER Office Visit [facility]ient Care at [address] [address] Reshma Roberts PA COVID (Primary [...] on file Legal Sex Female 6:23 AM BLOW DOWN HELPER Gender Identity Not on file Sexual Orientation Not on file Last Filed Vital Signs Vital Sign Reading Time Taken Comments Blood Pressure 142/85 09/04/2024 6:26 PM BLOW DOWN HELPER Pulse 108 09/04/2024 6:26 PM BLOW DOWN HELPER Temperature 36.8 C (98.3 F) 09/04/2024 6:26 PM BLOW DOWN HELPER Respiratory Rate 20 09/04/2024 6:26 PM BLOW DOWN HELPER Oxygen Saturation 96% 09/04/2024 6:26 PM BLOW DOWN HELPER Inhaled Oxygen Concentration - - Weight 67 kg (147 lb 9.6 oz) 09/04/2024 6:26 PM BLOW DOWN HELPER Height 154.9 cm (5' 1 ) 09/04/2024 6:26 PM BLOW DOWN HELPER Body Mass Index 27.89 09/04/2024 6:26 PM BLOW DOWN HELPER Plan of Treatment Not on file Procedures Procedure Name Priority Date/Time Associated Diagnosis Comments POC INFLUENZA A/B, COVID-19 ANTIGEN Routine 09/04/2024 6:53 PM BLOW DOWN HELPER COVID from Last 3 Months Results * (ABNORMAL) POC Influenza A/B, COVID-19 antigen (09/04/2024 6:53 PM BLOW DOWN HELPER) Influenza A Ag, POC Negative Negative [facility] Influenza B Ag, POC Negative Negative [facility] COVID-19 Ag POC Positive(A) Presumptive Negative, Invalid [facility] Nasal 09/04/2024 6:5 3 PM BLOW DOWN HELPER us Reshma [place] POINT OF CARE TEST ORDER DOC Final Result [facility] EDW [address] [place] [address], [facility] from Last 3 Months Insurance [employer] Care Teams Sheet Ironworker Relationship Specialty Start Date End Date Yadiel eLon DO PCP - General Family Medicine 02/09/23
== END 2024-11-07 09:39 | disposition home or self-care (01) ==
PROVIDERS: PCP Family Medicine; Visit Provider Nurse Practitioner
DX: K44.9 Diaphragmatic hernia without obstruction or gangrene (principal)
CPT/HCPCS: 74240

== ENCOUNTER 2024-11-23 07:54 | Outpatient (CLI) | payer OTHER, SELFPAY ==
--- NOTE | ~2024-11-23 | CT_ITS ---
EXAMINATION: CT chest abdomen pelvis w con DATE: 11/23/2024 08:21 INDICATION: Large hiatal hernia. TECHNIQUE: Computed tomography (CT) of the chest, abdomen, and pelvis was performed with 100 mL Omnip aque 350 intravenous contrast. Automated exposure control and iterative reconstruction technique were employed. The dose-length product was 424.59 mGy-cm. COMPARISON: Thyroid ultrasound 06/15/2024, 05/28/22 FINDINGS: CHEST CT: There is mild scarring at the lung apices. There is mild atelectasis bilaterally. No pleural effusion . There are chronic nodules in the thyroid measuring up to 2.1 cm. The heart size is normal. No peric ardial effusion. There is a large sliding hiatal hernia. There is moderate thoracic spondylosis. Ther e is mild chronic anterior wedging of multiple vertebral bodies. ABDOMEN/PELVIS CT: The liver and spleen are normal. There are gallstones in the gallbladder, which is normal in size. Ga llbladder wall thickening is noted. The pancreas and left adrenal gland are normal. There is a 2.2 cm mass in right adrenal gland measuring soft tissue attenuation. The kidneys are normal. There is dive rticulosis of the colon without evidence of diverticulitis. There are no dilated loops of bowel. The appendix is normal. There are no pathologically enlarged lymph nodes. There is no free intraperitonea l fluid. There is severe lumbar spondylosis. IMPRESSION: 1. Large sliding hiatal hernia. 2. Cholelithiasis. Gallbladder wall thickening may be secondary to chronic cholecystitis. 3. 2.2 cm right adrenal mass. In the absence of known malignancy, this finding is likely an adenoma. Reviewed, dictated and finalized at location A. IMPRESSION: 1. Large sliding hiatal hernia. 2. Cholelithiasis. Gallbladder wall thickening may be secondary to chronic chol ecystitis. 3. 2.2 cm right adrenal mass. In the absence of known malignancy, this finding is likely an adenoma.
--- OUTSIDE RECORDS SUMMARY | 2024-11-23 07:58 | XMS_ITS | Clinical Summary ---
Author Organization [facility] Address [address] [place] [address] Care Team Providers Care Fund Development Manager Name Role Phone Unavailable Primary Care Provider [...]
--- OUTSIDE RECORDS SUMMARY | 2024-11-23 07:58 | XMS_ITS | Referral Summary ---
Author Organization [facility] Address [address] [place] [address] Care Team Providers Care Electronic Engineering Technician Name Role Phone Yadiel Leon Primary Care Provider [phone] Encounters Date Type Department Care Team Description 09/04/2024 6:00 PM BIZTALK ADMINISTRATOR Office Visit [facility] Medical [facility] Con[facility]ient Care at [address] [address] Reshma Roberts PA COVID (Primary [...] on file Legal Sex Female 6:23 AM BIZTALK ADMINISTRATOR Gender Identity Not on file Sexual Orientation Not on file Last Filed Vital Signs Vital Sign Reading Time Taken Comments Blood Pressure 142/85 09/04/2024 6:26 PM BIZTALK ADMINISTRATOR Pulse 108 09/04/2024 6:26 PM BIZTALK ADMINISTRATOR Temperature 36.8 C (98.3 F) 09/04/2024 6:26 PM BIZTALK ADMINISTRATOR Respiratory Rate 20 09/04/2024 6:26 PM BIZTALK ADMINISTRATOR Oxygen Saturation 96% 09/04/2024 6:26 PM BIZTALK ADMINISTRATOR Inhaled Oxygen Concentration - - Weight 67 kg (147 lb 9.6 oz) 09/04/2024 6:26 PM BIZTALK ADMINISTRATOR Height 154.9 cm (5' 1 ) 09/04/2024 6:26 PM BIZTALK ADMINISTRATOR Body Mass Index 27.89 09/04/2024 6:26 PM BIZTALK ADMINISTRATOR Plan of Treatment Not on file Procedures Procedure Name Priority Date/Time Associated Diagnosis Comments POC INFLUENZA A/B, COVID-19 ANTIGEN Routine 09/04/2024 6:53 PM BIZTALK ADMINISTRATOR COVID from Last 3 Months Results * (ABNORMAL) POC Influenza A/B, COVID-19 antigen (09/04/2024 6:53 PM BIZTALK ADMINISTRATOR) Influenza A Ag, POC Negative Negative [facility] Influenza B Ag, POC Negative Negative [facility] ED[facility] COVID-19 Ag POC Positive(A) Presumptive Negative, Invalid [facility] Nasal 09/04/2024 6:53 PM BIZTALK ADMINISTRATOR us Reshma [place] POINT OF CARE TEST ORDER DOC Final Result [facility] EDW [address] [place] [address], [facility] from Last 3 Months Insurance CIGNA [facility] Care Teams Electronic Engineering Technician Relationship Specialty Start Date End Date Yadiel Leon DO PCP - General Family Medicine 02/09/23
--- OUTSIDE RECORDS SUMMARY | 2024-11-23 07:58 | XMS_ITS | Clinical Summary ---
Author Organization [facility] Administrative Offices Address [address] [place] [address] Care Team Providers Care Cake Knocker Name Role Phone Virgil Shay MD Primary Care Provider [phone] Allergies No known active allergies Medications lovastatin [...] on file Legal Sex Female 3:23 AM REFERRAL AND INFORMATION AIDE Gender Identity Not on file Sexual Orientation Not on file Last Filed Vital Signs Vital Sign Reading Time Taken Comments Blood Pressure 120/86 10/12/2016 8:19 AM REFERRAL AND INFORMATION AIDE Pulse 88 10/12/2016 8:19 AM REFERRAL AND INFORMATION AIDE Temperature 37.1 C (98.8 F) 10/12/2016 8:19 AM REFERRAL AND INFORMATION AIDE Respiratory Rate - - Oxygen Saturation 95% 10/12/2016 8:19 AM REFERRAL AND INFORMATION AIDE Inhaled Oxygen Concentration - - Weight 76.7 kg (169 lb) 10/12/2016 8:19 AM REFERRAL AND INFORMATION AIDE Height 154.9 cm (5' 1 ) 10/12/2016 8:19 AM REFERRAL AND INFORMATION AIDE Body Mass Index 31.93 10/12/2016 8:19 AM REFERRAL AND INFORMATION AIDE Plan of Treatment Health Maintenance Due Date [...] Most Recently Relevant to Health Maintenance Insurance [facility] BLUE PREFERRED Care Teams Cake Knocker Relationship Specialty Start Date End Date Virgli Shay MD [address] [place] [address] [place] [address] PCP - General Family Practice 10/12/16
--- OUTSIDE RECORDS SUMMARY | 2024-11-23 07:58 | XMS_ITS | Continuity of Care Document ---
Author Organization [facility] Address [address] [facility] [place] [address] Phone Care Team Providers Care Roller Skates Assembler Name Role Phone Jessica Hanson OD Unavailable Unavailable Allergies, Adverse Reactions, Alerts Substance Reaction Status Criticality No Known Allergies Active No Inform ation Medications Medication Instructions Dosage Effective Dates (start - stop) Status Comments Miebo 100 % eye drops instill 1 drop by ophthalmic route 4 times every day into both eyes for dryness - Active Please call pt at [phone] omeprazole 20 mg tablet,delayed release - Active [...] 1 capsule by oral route every month 25001 UNITS - Active L-Lysine 500 mg tablet - Active amlodipine 5 mg tablet take 1 tablet by oral route every day 5 MG - Active Procedures Procedure Date REFRACTION POSTOP FOLLOW-UP VISIT POSTOP FOLLOW-UP VISIT POSTOP FOLLOW-UP VISIT POSTOP FOLLOW-UP VISIT PHARMACY [...] Provider Providers Copied on Encounter [facility], [address] [place] [address], [id number], tel:[phone] OPH CONSULT MU DUONG Post Op (chief complaint) Presence of intraocular lens Mar-2 - 5 Valentin Lopez. [address] [place] [address], [address], [place]. tel:[phone] Referring Provider: Christel Sandra OD, [address], [place], [address] . tel:[phone] [facility], [address] [place] [address], [id number], tel:[phone] OPH CONSULT MU DUONG Post Op (chief complaint) Presence of intraocular lens Mar-2 0- 5 Valentin Lopez. [address] [place] [address], [address], [place]. tel:[phone] Referring Provider: Christel Sandra OD, [address], [place], [address] . tel:[phone] [facility], [address] [place] [address], [place], [id number], [place] tel:[phone] OPH CONSULT MU DUONG Post OP (chief complaint) Other specified postprocedural states 5 Alyson Valdez. [address], [address], [place], [place], [id number], [place]. tel:[phone] Referring Provider: Christel Sandra OD, [address], [place], [address] . tel:[phone] [facility], [address] [place] [address] [address], [id number], [place] tel:[phone] OPH CONSULT MU DUONG YAG PC (chief complaint) Presence of intraocular lens 5 Alyson Valdez. [address], [address], [place], [place], [id number], [place]. tel:[phone] Referring Provider: Christel Sandra OD, [address], [place], [address] . tel:[phone] [facility], [address] [place] [address], [id number], [place] tel:[phone] OPH CONSULT MU DUONG Post Op (chief complaint) Presence of intraocular lens 5 Hanson Jessica. [address] [place] [address], [address], [place], [address], [place]. tel:[phone] Referring Provider: Christel Jocy OD, [address], [place], [address] . tel:[phone] [facility], [address] [place] [address], [id number], [place] tel:[phone] OPH CONSULT MU DUONG Post op (chief complaint) Presence of intraocular lens 5 Hanson Jessica. [address] [place] [address], [address], [place], [address], [place]. tel:[phone] Referring Provider: Christel Jocy OD, [address], [place], [address] . tel:[phone] [facility], [address] [place] [address], [id number], [place] tel:[phone] OPH CONSULT MU DUONG post op (chief complaint) Presence of intraocular lens Dec-1 4 Valentin Lopez. [address] [place] [address], [address], [place], [address], [place]. tel:[phone] Referring Provider: Christel Sandra OD, [address], [place], [address] . tel:[phone] [facility], [address] [place] [address], [place], [place], [id number], [place] tel:[phone] OPH CONSULT MU DUONG Post-Op (chief complaint) Age-related nuclear cataract, left eye Dec-1 4 Valentin Lopez. [address] [place] [address], [address], [place], [address], [place]. tel:[phone] Referring Provider: Christel Sandra OD, [address], [place], [address] . tel:[phone] [facility], [address] [place] [address], [place], [place], [id number], [place] tel:[phone] OPH CONSULT MU DUONG Post Op (chief complaint) Presence of intraocular lens Dec-0 4 Valentin Mays [address] [place] [address], [address], [place], [address], [place]. tel:[phone] Referring Provider: Christel Sandra OD, [address], [place], [address] . tel:[phone] [facility], [address] [place] [address], [id number], [place] tel:[phone] [facility] [place] No Information 4 Alyson Valdez. [address] , [address], [place], [place], [id number], [place]. tel:[phone] Referring Provider: Christel Sandra OD, [address], [place], [address] . tel:[phone] [facility], [address] [place] [address], [id number], tel:[phone] [facility] [place] No Information Nov0 - 4 Alyson Valdez. [address], [address], [place], [place], [id number], [place]. tel:[phone] Referring Provider: Christel Sandra OD, [address], [place], [address] . tel:[phone] [facility], [address] [place] [address], [id number], tel:[phone] OPH CONSULT MU DUONG No Information Jun-0 4 Alyson Valdez. [address], [address], [place], [place], [id number], [place]. tel:[phone] Referring Provider: Christel Sandra OD, [address], [place], [address] . tel:[phone] [facility], [address] [place] [address], [id number], tel:[phone] OPH CONSULT MU DUONG No Information 0 4 Valentin Lopez. [address] [place] [address], [address], [place], [address], [place]. tel:[phone] Referring Provider: Christel Sandra OD, [address], [place], [address] . tel:[phone] [facility], [address] [place] [address], [id number], [place] tel:[phone] OPH CONSULT MU DUONG No Information Nov0 - 4 Alyson Valdez. [address], [address], [place], [place], [id number], [place]. tel:[phone] Referring Provider: Christel Sandra OD, [address], [place], [address] . tel:[phone] [facility], [address] [place] [address], [id number], [place] tel:[phone] [facility] No Information May- 4 Alyson Valdez. [address], [address], [place], [place], [id number], [place]. tel:[phone] Referring Provider: Christel Sandra OD, [address], [place], [address] . tel:[phone] [facility], [address] [place] [address], [id number], [place] tel:[phone] OPH CONSULT MU DUONG No Information 4 Valentin Lopez. [address] [place] [address], [address] [facility], [place], [address], [place]. tel:[phone] Referring Provider: Christel Sandra OD, [address], [place], [address] . tel:[phone] [facility], [address] [place] [address], [id number], [place] tel:[phone] OPH CONSULT MU DUONG No Information 4 Alyson Valdez. [address], [address], [place], [place], [id number], [place]. tel:[phone] Referring Provider: Christel Sandra OD, [address], [place], [address] . tel:[phone] OFFICE/OUTPA TIENT VISIT, [facility], [address] [place] [address], [id number], [place] tel:[phone] OPH CONSULT MU DUONG Cataract Evaluation (chief complaint)F loaters (chief complaint)l esion (chief complaint) Age-related nuclear cataract, bilateralKerat oconjunct sicca, not specified as Sjogren's, bilateralOther vitreous opacities, bilateralDerma tochalasis of right upper eyelidDermatoc halasis of right lower eyelidDermatoc halasis of left upper eyelidDermatoc halasis of left lower eyelid Alyson Valdez. [address], [address], [place], [place], [id number], . tel:[phone] Referring Provider: Christel Sandra OD, [address], [place], [address] . tel:[phone] Family History Family Member Type Diagnosis Age At Onset Mother Problem glaucoma Payers Payer name Insurance type Covered green party ID Authoriza mark(s) Ryann CI [id number] Social History Type Description Quantity Date Captured Comments Alcohol Use Details Unknown Caffeine Use Details Unknown Tobacco Use Status No Information Smoking Status No Information Sex Female Chief Complaint And Reason For Visit From encounter dated '11/22/2024 14:15'. Post Op (chief complaint). Description: The 69 year old female presents for evaluation of Post Op. Pt had PRK OD 10/11. She feels NV and DV is good; needs cheaters on rare occasion. Meibo 2-3x per day. Patient notes OS is still hard to open in the AM; varying in severity day by day. Most difficulties she has every had was this AM. She has been using gel gtts QAM. Notes she does not force eye open;rather rolls it around while shut. Systane every few hours OU and Meibo QID OS only Std/D GILSON; OU ORA OU, YAG OU, Hx of myopic lasik OUOD: GILSON target: -1.50 sphOS: GILSON Target: [place] (dom eye)Referredby Dr. Christel Sandra- Reason For Referral Reason For Referral No Information History Of Present Illness Encounter Date Complaint History Of Prese nt Illness Post Op The 69 year old female presents for evaluation of Post Op. Pt had PRK OD 10/11. She feels NV and DV is good; needs cheaters on rare occasion. Meibo 2-3x per day. Patient notes OS is still hard to open in the AM; varying in severity day by day. Most difficulties she has every had was this AM. She has been using gel gtts QAM. Notes she does not force eye open; rather rolls it around while shut. Systane every few hours OU and Meibo QID OS only Std/D GILSON; OU ORA OU, YAG OU, Hx of myopic lasik OUOD: GILSON target: -1.50 sphOS: GILSON Target: [place] (dom eye)Referred by Dr. Christel Sandra- Post Op The 69 year old female presents for evaluation of Post Op. Pt had PRK OD 10/11. Patient notes JG was supposed to be looking for a floater (also seen by Dr. Tiwari) and had PRK, OD (10/11). JG told her on 2 occasions she was locked in and was not. Concerned about order of services. Notes she is not noticing floater. Finished sx. She feels NV and DV is good and only relies on cheaters in the PM or when OU are tired. Meibo 2-3x per day. Patient notes OS is still hard to open in the AM; varying in severity day by day. Notes she does not force eye open; rather rolls it around while shut. Ongg-Efez-Epyu and Systane every hour OU and Meibo QID OS only Std/D GILSON; OU ORA OU, YAG OU, Hx of myopic lasik OUOD: GILSON target: -1.50 sphOS: [place]IL[place] Target: [place] (dom eye)Referred by Dr. Christel Sandra- Post OP The 69 year old female presents for evaluation of Post OP PRK OD. Vision seems to go in and out of focus and has a FBS, thinks due to BCL. Near vision seems ok since Sx. Using Diki-Vimo-Dgnf and Systane every hour OU and Meibo QID OS only -Needs a refill of Meibo - do we have any samples s/p PCIOL OU 2023s/p YAG OU 2023 YAG PC Std/D GILSON; OU OR A OU, YAG OU, Hx of myopic lasik OUOD: GILSON target: -1.50sphOS: [place] Target: [place] (dom eye)Referred by Dr. Christel MoseslPatient states [...] Hx of myopic lasik OUOD: GILSON target: -1.50 sphOS: GILSON Target: [place] (dom eye)Referred by Dr. Christel Sandra Post [...] Hx of myopic lasik OUOD: GILSON target: -1.50sph (mini [place])OS: GILSON Target: [place] (dom eye)Referred by Dr. Christel Sandra post [...] myopic lasik OUOD: GILSON target: -0.75sph (mini [place])OS: GILSON Target: [place] (dom eye)Referred by Dr. Christel Sandra Post-Op [...] myopic lasik OUOD: GILSON target: -0.75sph (mini [place])OS: GILSON Target: [place] (dom eye)Referred by Dr. Christel Sandra. Post [...] GILSON; OUORA OU YAG OUs.p myopic lasik; NJTpdm-Dprn-Tqmv TID, AT PRN; OSReferred by Dr. Christel [...] OU; 1999Referred by Dr. Christel Sandra @ [facility] Floaters The patient is p resent for evaluation of Floaters. Patient has floaters in OU. She denies curtains, a veil, or FOL. lesion The patient is p resent for evaluation of lesion. Patient has what she believes is a stye inside LLL, nasally. States it has been present for years and does not cause her trouble. Functional Status Date Functional Assessmen t No Information Instructions Date Instruction Additional Infor luci Impression/Plan Related to Prese nce of intraocular lens Impression/Plan Related to Prese nce of intraocular lens Impression/Plan Related to Other specified postprocedural states Impression/Plan Related to Prese nce of intraocular lens Impression/Plan Related to Prese nce of intraocular lens Impression/Plan Related to Prese nce of intraocular lens Impression/Plan Related to Prese nce of intraocular lens Impression/Plan Related to Age-r elated nuclear cataract, left eye Impression/Plan Related to Prese nce of intraocular lens Impression/Plan Related to [place] tochalasis of left lower eyelid Impression/Plan Related to [place] tochalasis of left upper eyelid Impression/Plan Related to [place] tochalasis of right lower eyelid Impression/Plan Related to [place] tochalasis of right upper eyelid Impression/Plan Related to Other vitreous opacities, bilateral Impression/Plan Related to Kerat oconjunct sicca, not specified as Sjogren's, bilateral Impression/Plan Related to Age-r elated nuclear cataract, bilateral Assessments Type Assessment Date assessment Presence of intraocular lens Oct Patient Care Teams Name Effective Dates (start - stop) Status Members No Information
--- OUTSIDE RECORDS SUMMARY | 2024-11-23 07:58 | XMS_ITS | Clinical Summary ---
Author Organization [facility] Address [address] [place] [address] Care Team Providers Care Communication Equipment Repairer Name Role Phone Carolyn Yadiel LEBLANC Primary Care Provider [phone] Allergies No known active allergies Medications amLODIPine [...] Care Team Description 09/04/2024 6:00 PM SENIOR JAVA J2EE DEVELOPER Office Visit [facility] at [address] [address] Reshma Roberts PA COVID (Primary [...] file Legal Sex Female 6:23 AM SENIOR JAVA J2EE DEVELOPER Gender Identity Not on file Sexual Orientation Not on file Obstetrics History Last Filed Vital Signs Vital Sign Reading Time Taken Comments Blood Pressure 142/85 09/04/2024 6:26 PM SENIOR JAVA J2EE DEVELOPER Pulse 108 09/04/2024 6:26 PM SENIOR JAVA J2EE DEVELOPER Temperature 36.8 C (98.3 F) 09/04/2024 6:26 PM SENIOR JAVA J2EE DEVELOPER Respiratory Rate 20 09/04/2024 6:26 PM SENIOR JAVA J2EE DEVELOPER Oxygen Saturation 96% 09/04/2024 6:26 PM SENIOR JAVA J2EE DEVELOPER Inhaled Oxygen Concentration - - Weight 67 kg (147 lb 9.6 oz) 09/04/2024 6:26 PM SENIOR JAVA J2EE DEVELOPER Height 154.9 cm (5' 1 ) 09/04/2024 6:26 PM SENIOR JAVA J2EE DEVELOPER Body Mass Index 27.89 09/04/2024 6:26 PM SENIOR JAVA J2EE DEVELOPER Plan of Treatment Health Maintenance Due Date [...] COVID-19 ANTIGEN Routine 09/04/2024 6:53 PM SENIOR JAVA J2EE DEVELOPER COVID from Last 3 Months Results * (ABNORMAL) POC Influenza A/B, COVID-19 antigen (09/04/2024 6:53 PM SENIOR JAVA J2EE DEVELOPER) Influenza A Ag, POC Negative Negative [facility] Influenza B Ag, POC Negative Negative [facility] COVID-19 Ag POC Positive(A) Presumptive Negative, Invalid [facility] Nasal 09/04/2024 6:53 PM SENIOR JAVA J2EE DEVELOPER Reshma [place] POINT OF CARE TEST ORDER DOC Final Result [facility] [place] [address], [facility] from Last 3 Months Insurance [employer] [facility] Care Teams Communication Equipment Repairer Relationship Specialty Start Date End Date Yadiel Leon DO PCP - General Family Medicine 02/09/23
== END 2024-11-23 07:55 | disposition home or self-care (01) ==
LOC: ANHIMG 07:55
PROVIDERS: PCP Family Medicine; Visit Provider Nurse Practitioner
DX: K44.9 Diaphragmatic hernia without obstruction or gangrene (principal); D35.01 Benign neoplasm of right adrenal gland; K80.20 Calculus of gallbladder without cholecystitis without obstruction
CPT/HCPCS: 71260; 74177; Q9967

== ENCOUNTER 2024-12-03 11:47 | Outpatient (CLI) | payer OTHER, SELFPAY ==
--- NOTE | ~2024-12-03 | XR_ITS ---
XR chest 2V Ordering provider: Watson Dumont MD History: 69 years Female with . K44.9 - Diaphragmatic hernia without obstruction PRE OP . Comparison: November 05, 2024 FINDINGS: MEDIASTINUM: The cardiac silhouette is not enlarged. Sliding hiatus hernia. LUNGS: No infiltrates, effusions or pneumothorax. OTHER: No free air under the diaphragm. IMPRESSION: No acute cardiopulmonary pathology Reviewed, dictated and finalized at location A.
--- OUTSIDE RECORDS SUMMARY | 2024-12-03 13:44 | XMS_ITS | Clinical Summary ---
Author Organization [facility] Administrative Offices Address [address] [place] [address] Care Team Providers Care Shagger Name Role Phone Virgil Shay MD Primary Care Provider [phone] Allergies No known active allergies Medications lovastatin [...] on file Legal Sex Female 3:23 AM CREDIT CORRESPONDENCE CLERK Gender Identity Not on file Sexual Orientation Not on file Last Filed Vital Signs Vital Sign Reading Time Taken Comments Blood Pressure 120/86 10/12/2016 8:19 AM CREDIT CORRESPONDENCE CLERK Pulse 88 10/12/2016 8:19 AM CREDIT CORRESPONDENCE CLERK Temperature 37.1 C (98.8 F) 10/12/2016 8:19 AM CREDIT CORRESPONDENCE CLERK Respiratory Rate - - Oxygen Saturation 95% 10/12/2016 8:19 AM CREDIT CORRESPONDENCE CLERK Inhaled Oxygen Concentration - - Weight 76.7 kg (169 lb) 10/12/2016 8:19 AM CREDIT CORRESPONDENCE CLERK Height 154.9 cm (5' 1 ) 10/12/2016 8:19 AM CREDIT CORRESPONDENCE CLERK Body Mass Index 31.93 10/12/2016 8:19 AM CREDIT CORRESPONDENCE CLERK Plan of Treatment Health Maintenance Due Date [...] Most Recently Relevant to Health Maintenance Insurance [employer] Care Teams Shagger Relationship Specialty Start Date End Date Virgil Shay MD [address] [place] [address] [place] [address] PCP - General Family Practice 10/12/16
--- OUTSIDE RECORDS SUMMARY | 2024-12-03 13:45 | XMS_ITS | Clinical Summary ---
Author Organization [facility] Address [address] [place] [address] Care Team Providers Care Film Library Clerk Name Role Phone CarolynYadiel Primary Care Provider [phone] Allergies No known active allergies Medications amLODIPine [...] Department Care Team Description 09/04/2024 6:00 PM SUBSTITUTE NURSE Office Visit [facility] at [address] [address] Reshma Roberts PA COVID (Primary [...] on file Legal Sex Female 6:23 AM SUBSTITUTE NURSE Gender Identity Not on file Sexual Orientation Not on file Obstetrics History Last Filed Vital Signs Vital Sign Reading Time Taken Comments Blood Pressure 142/85 09/04/2024 6:26 PM SUBSTITUTE NURSE Pulse 108 09/04/2024 6:26 PM SUBSTITUTE NURSE Temperature 36.8 C (98.3 F) 09/04/2024 6:26 PM SUBSTITUTE NURSE Respiratory Rate 20 09/04/2024 6:26 PM SUBSTITUTE NURSE Oxygen Saturation 96% 09/04/2024 6:26 PM SUBSTITUTE NURSE Inhaled Oxygen Concentration - - Weight 67 kg (147 lb 9.6 oz) 09/04/2024 6:26 PM SUBSTITUTE NURSE Height 154.9 cm (5' 1 ) 09/04/2024 6:26 PM SUBSTITUTE NURSE Body Mass Index 27.89 09/04/2024 6:26 PM SUBSTITUTE NURSE Plan of Treatment Health Maintenance Due Date [...] A/B, COVID-19 ANTIGEN Routine 09/04/2024 6:53 PM SUBSTITUTE NURSE COVID from Last 3 Months Results * (ABNORMAL) POC Influenza A/B, COVID-19 antigen (09/04/2024 6:53 PM SUBSTITUTE NURSE) Influenza A Ag, POC Negative Negative [facility] Influenza B Ag, POC Negative Negative [facility] COVID-19 Ag POC Positive(A) Presumptive Negative, Invalid [facility] Nasal 09/04/2024 6:53 PM SUBSTITUTE NURSE Reshma [place] POINT OF CARE TEST ORDER DOC Final Result [facility] [place] [address], [facility] from Last 3 Months Insurance [employer] [facility] [employer] Care Teams Film Library Clerk Relationship Specialty Start Date End Date Yadiel Leon DO PCP - General Family Medicine 02/09/23
--- OUTSIDE RECORDS SUMMARY | 2024-12-03 13:45 | XMS_ITS | Referral Summary ---
Author Organization [facility] Address [address] [place] [address] Care Team Providers Care Emergency Medical Service Manager Name Role Phone Yadiel Leon Primary Care Provider [phone] Encounters Date Type Department Care Team Description 09/04/2024 6:00 PM VAT SKIMMER Office Visit [facility] at [address] [address] Reshma Roberts PA COVID (Primary [...] on file Legal Sex Female 6:23 AM VAT SKIMMER Gender Identity Not on file Sexual Orientation Not on file Last Filed Vital Signs Vital Sign Reading Time Taken Comments Blood Pressure 142/85 09/04/2024 6:26 PM VAT SKIMMER Pulse 108 09/04/2024 6:26 PM VAT SKIMMER Temperature 36.8 C (98.3 F) 09/04/2024 6:26 PM VAT SKIMMER Respiratory Rate 20 09/04/2024 6:26 PM VAT SKIMMER Oxygen Saturation 96% 09/04/2024 6:26 PM VAT SKIMMER Inhaled Oxygen Concentration - - Weight 67 kg (147 lb 9.6 oz) 09/04/2024 6:26 PM VAT SKIMMER Height 154.9 cm (5' 1 ) 09/04/2024 6:26 PM VAT SKIMMER Body Mass Index 27.89 09/04/2024 6:26 PM VAT SKIMMER Plan of Treatment Not on file Procedures Procedure Name Priority Date/Time Associated Diagnosis Comments POC INFLUENZA A/B, COVID-19 ANTIGEN Routine 09/04/2024 6:53 PM VAT SKIMMER COVID from Last 3 Months Results * (ABNORMAL) POC Influenza A/B, COVID-19 antigen (09/04/2024 6:53 PM VAT SKIMMER) Influenza A Ag, POC Negative Negative [facility] Influenza B Ag, POC Negative Negative [facility] COVID-19 Ag POC Positive(A) Presumptive Negative, Invalid [facility] Nasal 09/04/2024 6:53 PM VAT SKIMMER us Reshma [place] POINT OF CARE TEST ORDER DOC Final Result [facility] [address] [place] [address], [facility] from Last 3 Months Insurance CIGNA [facility] Care Teams Emergency Medical Service Manager Relationship Specialty Start Date End Date Yadiel Leon DO PCP - General Family Medicine 02/09/23
--- OUTSIDE RECORDS SUMMARY | 2024-12-03 13:45 | XMS_ITS | Continuity of Care Document ---
Author Organization [facility] Address [address] [facility] [address] [place] [address] Phone Care Team Providers Care Transition Mgr Name Role Phone Jessica Hanson OD Unavailable Unavailable Allergies, Adverse Reactions, Alerts Substance Reaction Status Criticality No Known Allergies Active No Inform ation Medications Medication Instructions Dosage Effective Dates (start - stop) Status Comments Miebo 100 % eye drops instill 1 drop by ophthalmic route 4 times every day into both eyes for dryness - Active Please call pt at [phone] omeprazole 20 mg tablet,delayed release - Active [...] 1 capsule by oral route every month [address]2680 UNITS - Active L-Lysine 500 mg tablet [...] Provider Providers Copied on Encounter [facility], [address] [place] [address], [id number], tel:[phone] OPH CONSULT MU DUONG Post Op (chief complaint) Presence of intraocular lens Mar-2 - 5 Valentin Lopez. [address] [place] [address], [address], [place]. tel:[phone] Referring Provider: Christel Sandra OD, [address] [facility], [place], [address] . tel:[phone] [facility], [address] [place] [address], [id number], tel:[phone] OPH CONSULT MU DUONG Post Op (chief complaint) Presence of intraocular lens Mar-2 0- 5 Valentin Lopez. [address] [place] [address], [address], [place]. tel:[phone] Referring Provider: Christel Sandra OD, [address] [facility], [place], [address] . tel:[phone] [facility], [address] [place] [address], [place], [id number], [place] tel:[phone] OPH CONSULT MU DUONG Post OP (chief complaint) Other specified postprocedural states 5 Alyson Valdez. [address], [address], [place], [place], [id number], [place]. tel:[phone] Referring Provider: Christel Sandra OD, [address], [place], [address] . tel:[phone] [facility], [address] [place] [address], [place], [id number], [place] tel:[phone] OPH CONSULT MU DUONG YAG PC (chief complaint) Presence of intraocular lens 5 Alyson Valdez. [address], [place], [place], [id number], [place]. tel:[phone] Referring Provider: Christel Sandra OD, [address], [place], [address] . tel:[phone] [facility], [address] [place] [address], [id number], [place] tel:[phone] OPH CONSULT MU DUONG Post Op (chief complaint) Presence of intraocular lens 5 Hanson Jessica. [address] [place] [address], [address], [place], [address], [place]. tel:[phone] Referring Provider: Christel Jocy OD, [address], [place], [address] . tel:[phone] [facility], [address] [place] [address], [id number], [place] tel:[phone] OPH CONSULT MU DUONG Post op (chief complaint) Presence of intraocular lens 5 Hanson Jessica. [address] [place] [address], [address], [place], [address], [place]. tel:[phone] Referring Provider: Christel Jocy OD, [address], [place], [address] . tel:[phone] [facility], [address] [place] [address], [id number], [place] tel:[phone] OPH CONSULT MU DUONG post op (chief complaint) Presence of intraocular lens Dec-1 4 Valentin Lopez. [address] [place] [address], [address], [place], [address], [place]. tel:[phone] Referring Provider: Christel Sandra OD, [address], [place], [address] . tel:[phone] [facility], [address] [place] [address], [place], [place], [id number], [place] tel:[phone] OPH CONSULT MU DUONG Post-Op (chief complaint) Age-related nuclear cataract, left eye Dec-1 4 Valentin Lopez. [address] [place] [address], [address], [place], [address], [place]. tel:[phone] Referring Provider: Christel Sandra OD, [address], [place], [address] . tel:[phone] [facility], [address] [place] [address], [place], [place], [id number], [place] tel:[phone] OPH CONSULT MU DUONG Post Op (chief complaint) Presence of intraocular lens Dec-0 4 Valentin Mays [address] [place] [address], [address], [place], [address], [place]. tel:[phone] Referring Provider: Christel Sandra OD, [address], [place], [address] . tel:[phone] [facility], [address] [place] [address], [id number], [place] tel:[phone] [facility] No Information 4 Alyson Valdez. [address] , [address], [place], [place], [id number], [place]. tel:[phone] Referring Provider: Christel Sandra OD, [address], [place], [address] . tel:[phone] [facility], [address] [place] [address], [id number], tel:[phone] [facility] No Information Nov0 - 4 Alyson Valdez. [address], [address], [place], [place], [id number], [place]. tel:[phone] Referring Provider: Christel Sandra OD, [address], [place], [address] . tel:[phone] [facility], [address] [place] [address], [id number], tel:[phone] OPH CONSULT MU DUONG No Information Jun-0 4 Alyson Valdez. [address], [address], [place], [place], [id number], [place]. tel:[phone] Referring Provider: Christel Sandra OD, [address], [place], [address] . tel:[phone] [facility], [address] [place] [address], [id number], tel:[phone] OPH CONSULT MU DUONG No Information 0 4 Valentin Lopez. [address] [place] [address], [address], [place], [address], [place]. tel:[phone] Referring Provider: Christel Sandra OD, [address], [place], [address] . tel:[phone] [facility], [address] [place] [address], [id number], [place] tel:[phone] OPH CONSULT MU DUONG No Information Nov0 - 4 Alyson Valdez. [address], [address], [place], [place], [id number], [place]. tel:[phone] Referring Provider: Christel Sandra OD, [address], [place], [address] . tel:[phone] [facility], [address] [place] [address], [id number], [place] tel:[phone] [facility] No Information May- 4 Alyson Valdez. [address], [address], [place], [place], [id number], [place]. tel:[phone] Referring Provider: Christel Sandra OD, [address], [place], [address] . tel:[phone] [facility], [address] [place] [address], [id number], [place] tel:[phone] OPH CONSULT MU DUONG No Information 4 Valentin Lopez. [address] [place] [address], Suite [facility], [place], [address], [place]. tel:[phone] Referring Provider: Christel Sandra OD, [address], [place], [address] . tel:[phone] [facility], [address] [place] [address], [id number], [place] tel:[phone] OPH CONSULT MU DUONG No Information 4 Alyson Valdez. [address], [address], [place], [place], [id number], [place]. tel:[phone] Referring Provider: Christel Sandra OD, [address], [place], [address] . tel:[phone] OFFICE/OUTPA TIENT VISIT, [facility], [address] [place] [address], [id number], [place] tel:[phone] OPH CONSULT MU DUONG Cataract Evaluation (chief complaint)F loaters (chief complaint)l esion (chief complaint) Age-related nuclear cataract, bilateralKerat oconjunct sicca, not specified as Sjogren's, bilateralOther vitreous opacities, bilateralDerma tochalasis of right upper eyelidDermatoc halasis of right lower eyelidDermatoc halasis of left upper eyelidDermatoc halasis of left lower eyelid Alyson Valdez. [address], [address], [place], [place], [id number], . tel:[phone] Referring Provider: Christel Sandra OD, [address], [place], [address] . tel:[phone] Family History Family Member Type Diagnosis Age At Onset Mother Problem glaucoma Payers Payer name Insurance type Covered democrat ID Authoriza mark(s) Ryann CI [id number] Social History Type Description Quantity Date Captured [...] OUOD: GILSON target: -1.50 sphOS: GILSON Target: Gazelle (dom eye)Referredby Dr. Christel Sandra- Reason For [...] OUOD: GILSON target: -1.50 sphOS: GILSON Target: Gazelle (dom eye)Referred by Dr. Christel Sandra- Post [...] open; rather rolls it around while shut. Lwek-Hlcf-Wxrf and Systane every hour OU and Meibo QID OS only Std/D GILSON; OU ORA OU, YAG OU, Hx of myopic lasik OUOD: GILSON target: -1.50 sphOS: GILSON Target: Gazelle (dom eye)Referred by Dr. Christel Sandra- Post OP The 69 year old female presents for evaluation of Post OP PRK OD. Vision seems to go in and out of focus and has a FBS, thinks due to BCL. Near vision seems ok since Sx. Using Wvuf-Zlpq-Oagi and Systane every hour OU and Meibo QID OS only -Needs a refill of Meibo - do we have any samples s/p PCIOL OU 2023s/p YAG OU 2023 YAG PC Std/D GILSON; OU OR A OU, YAG OU, Hx of myopic lasik OUOD: GILSON target: -1.50sphOS: GILSON Target: Gazelle (dom eye)Referred by Dr. Christel MoseslPatient states [...] OUOD: GILSON target: -1.50 sphOS: GILSON Target: Gazelle (dom eye)Referred by Dr. Christel Sandra Post [...] myopic lasik OUOD: GILSON target: -1.50sph (mini [place])OS: GILSON Target: Gazelle (dom eye)Referred by Dr. Christel Sandra post [...] myopic lasik OUOD: GILSON target: -0.75sph (mini [place])OS: GILSON Target: Gazelle (dom eye)Referred by Dr. Christel Sandra Post-Op [...] myopic lasik OUOD: GILSON target: -0.75sph (mini [place])OS: GILSON Target: Gazelle (dom eye)Referred by Dr. Christel Sandra. Post [...] GILSON; OUORA OU YAG OUs.p myopic lasik; ZSVfda-Mgzj-Oxmj TID, AT PRN; OSReferred by Dr. Christel [...] OU; 1999Referred by Dr. 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
--- OUTSIDE RECORDS SUMMARY | 2024-12-03 13:45 | XMS_ITS | Clinical Summary ---
Author Organization [facility] Address [address] [place] [address] Care Team Providers Care Vocational Teacher Name Role Phone Unavailable Primary Care Provider [...] of 1 - PCV) 2020 COVID-19 Vaccine ( - 2023-2 5 season) 2024 RSV Immunization or 60+ Years (1 [...]
[2024-12-03 13:46] LABS: Basophils Percent Auto 0.4 % (0.2-1.2); Eosinophils Absolute Auto 0.2 K/mm3 (0-0.3); Eosinophils Percent Auto 2.1 % (0-4.4); Hematocrit 45.3 % (37.0-47.0); Hemoglobin 14.6 g/dL (12.0-15.0); Immature Granulocyte Absolute 0.02 K/mm3 (0.00-0.031); Immature Granulocyte Percent A 0.3 % (0-0.5); Lymphocytes Absolute Auto 1.62 K/mm3 (0.9-3.2); Lymphocytes Percent Auto 22.6 % (18.3-44.2); Mean Corpuscular HGB Conc 32.2 g/dl (32-36); Mean Corpuscular Hemoglobin 30.4 pg (26-34); Mean Corpuscular Volume 94.4 fl (80-100); Mean Platelet Volume 10.7 fl (7.4-10.4); Monocytes Absolute Auto 0.6 K/mm3 (0.1-0.6); Monocytes Percent Auto 8.2 % (2.6-8.5); Neutrophils Absolute Auto 4.8 K/mm3 (1.3-6.7); Neutrophils Percent Auto 66.4 % (45.5-73.1); Platelet Count Result 230 k/mm3 (150-375); Red Cell Distribution Width 12.8 % (11.5-14.5); White Blood Count 7.2 K/mm3 (4.5-10.0)
[2024-12-03 14:02] LABS: Anion Gap 12 mmol/L (4-12); Blood Urea Nitrogen 9 mg/dL (7-17); Calcium 9.5 mg/dL (8.4-10.2); Carbon Dioxide 25 mmol/L (22-30); Chloride 103 mmol/L (98-107); Estimated Glomerular Filt Rate > 60; Glucose 79 mg/dL (65-110); Potassium 3.8 mmol/L (3.4-5.0); Sodium 140 mmol/L (137-145)
== END 2024-12-03 11:48 | disposition home or self-care (01) ==
LOC: ANHSURGERY 11:54
PROVIDERS: PCP Family Medicine; Visit Provider Surgery
DX: K44.9 Diaphragmatic hernia without obstruction or gangrene (principal)
CPT/HCPCS: 36415; 71046; 80048; 85025

== ENCOUNTER 2024-12-07 09:50 | Outpatient (CLI) | payer OTHER, SELFPAY ==
--- NOTE | ~2024-12-07 | US_ITS ---
Limited Abdominal Sonogram: Real-time sonographic imaging of the right upper quadrant was performed. Clinical History: Right upper quadrant pain Findings: The liver appears normal with no evidence of mass lesion or bile duct dilatation. Main por roshan vein demonstrates normal direction of flow. The gallbladder is well distended, and demonstrates e chogenic gallstones. The common bile duct measures 5 mm. The visualized pancreas, aorta, and IVC are unremarkable. Impression: Cholelithiasis. Reviewed, dictated and finalized at location M. Impression: Cholelithiasis.
== END 2024-12-07 09:51 | disposition home or self-care (01) ==
PROVIDERS: PCP Family Medicine; Visit Provider Surgery
DX: R10.11 Right upper quadrant pain (principal); K80.20 Calculus of gallbladder without cholecystitis without obstruction
CPT/HCPCS: 76705

== ENCOUNTER 2024-12-22 16:39 | Observation (INO) | payer OTHER, SELFPAY ==
--- NOTE | 2024-12-03 11:50 | PC.NURSE ---
Report to the Outpatient Waiting Room, entrance under the green pavilion located off [facility], at time _6 AM on date _12/21/24 . Planned Procedure Time: ___7:30 AM .? Time changes happen often and if your time is changed the preop area will call you the afternoon before. - You and your visitor will be asked to self-screen and do not enter if you have any COVID symptoms. Please call surgeon if you need to reschedule. - A mask is optional within the hospital at this time. Patients may have clear liquids (water, carbonated beverages, clear teas, apple juice) until 3 hours prior to surgery ( 4:30 AM) with a maximum of 20 ounces. - No food from midnight until time of surgery and no smoking, or chewing tobacco (or any form of nicotine). No chewing gum, candy or mints. - Take only the following medications with a SIP of water on the morning of surgery: __AMLODIPINE DO NOT STOP ANY OF YOUR OTHER PRESCRIPTION MEDICATIONS PRIOR TO SURGERY EXCEPT THE FOLLOWING Hold all vitamins and supplements for 3 days per anesthesiologist.LAST DOSE 12/17/24 Medications to discontinue per physician ___WEGOVY HOLD 10 DAYS PRE OP LAST DOSE 12/10/24 Date to take last dose Please no make-up, nail hungarian, hairspray, perfume, deodorant, or body powder the day of surgery.? No jewelry (including any body piercings) or valuables the day of surgery, leave them at home.? Please take a shower or bath the night before, or the morning of, surgery with an antibacterial soap.? Wear comfortable, loose fitting clothing.? Children are encouraged to wear pajamas. - Jewelry must be removed prior to entering the operating room.? Rings and piercings that are not removed may be cut off. - The hospital will not accept responsibility for valuables.? - Please leave all valuables, including medications, at home the day of surgery. If you are going home after surgery, a licensed electric pile driver operator must drive you home.? - NO public transportation without another adult if you receive anesthesia. - We recommend that an adult stay with you for 24 hours following discharge. - We also recommend that you do not drive, make important decision, drink alcoholic beverages, or take any drugs that were not prescribed by your health care provider for at least 24 hours after your discharge time. Follow any additional instructions given to you from your surgeon. VERBAL AND WRITTEN instructions given to _PATIENT and asked if any additional questions and then verbalized understanding. Patient advised to call surgeon office or pre surgery nurse liaison [phone] if any additional questions.
[2024-12-03 11:58] VITALS: BMI 26.4
[2024-12-03 12:51] VITALS: BP 124/75; PULSE 69; RESP 18; TEMP 36.9; O2SAT 97
[2024-12-21] VITALS (17 sets, daily range): BP systolic 98–142; BP diastolic 51–75; PULSE 79–96; RESP 13–22; TEMP 36.2–36.6; O2SAT 92–99; BMI 26.2
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
--- OUTSIDE RECORDS SUMMARY | 2024-12-21 00:45 | XMS_ITS | Clinical Summary ---
Author Organization [facility] Address [address] [place] [address] Care Team Providers Care Die Turner Name Role Phone HemaYadiel diana Primary Care Provider [phone] Allergies No known active allergies Medications amLODIPine [...] Date Diagnosed Date Arthralgia of ankle 11/28/2013 Surgical History Surgery Date Site/Laterality Comments LASIK [...] on file Legal Sex Female 6:23 AM COORDINATE MEASURING EQUIPMENT OPERATOR Gender Identity Not on file Sexual Orientation Not on file Obstetrics History Last Filed Vital Signs Vital Sign Reading Time Taken Comments Blood Pressure 142/85 09/04/2024 6:26 PM COORDINATE MEASURING EQUIPMENT OPERATOR Pulse 108 09/04/2024 6:26 PM COORDINATE MEASURING EQUIPMENT OPERATOR Temperature 36.8 C (98.3 F) 09/04/2024 6:26 PM COORDINATE MEASURING EQUIPMENT OPERATOR Respiratory Rate 20 09/04/2024 6:26 PM COORDINATE MEASURING EQUIPMENT OPERATOR Oxygen Saturation 96% 09/04/2024 6:26 PM COORDINATE MEASURING EQUIPMENT OPERATOR Inhaled Oxygen Concentration - - Weight 67 kg (147 lb 9.6 oz) 09/04/2024 6:26 PM COORDINATE MEASURING EQUIPMENT OPERATOR Height 154.9 cm (5' 1 ) 09/04/2024 6:26 PM COORDINATE MEASURING EQUIPMENT OPERATOR Body Mass Index 27.89 09/04/2024 6:26 PM COORDINATE MEASURING EQUIPMENT OPERATOR Plan of Treatment Health Maintenance Due Date [...] 05/30/2020 Pneumococcal vaccine 65+ Completed 06/19/2021, 09/2019 Insurance [employer] Care Teams Die Turner Relationship Specialty Start Date End Date Yadiel Leon DO PCP - General Family Medicine 02/09/23
--- OUTSIDE RECORDS SUMMARY | 2024-12-21 00:45 | XMS_ITS | Referral Summary ---
Author Organization [facility] Address [address] [place] [address] Care Team Providers Care Edi Specialist Name Role Phone HemaYadiel diana Primary Care Provider [phone] Allergies No known active allergies Medications amLODIPine [...] on file Legal Sex Female 6:23 AM ASSEMBLER TESTER Gender Identity Not on file Sexual Orientation Not on file Last Filed Vital Signs Vital Sign Reading Time Taken Comments Blood Pressure 142/85 09/04/2024 6:26 PM ASSEMBLER TESTER Pulse 108 09/04/2024 6:26 PM ASSEMBLER TESTER Temperature 36.8 C (98.3 F) 09/04/2024 6:26 PM ASSEMBLER TESTER Respiratory Rate 20 09/04/2024 6:26 PM ASSEMBLER TESTER Oxygen Saturation 96% 09/04/2024 6:26 PM ASSEMBLER TESTER Inhaled Oxygen Concentration - - Weight 67 kg (147 lb 9.6 oz) 09/04/2024 6:26 PM ASSEMBLER TESTER Height 154.9 cm (5' 1 ) 09/04/2024 6:26 PM ASSEMBLER TESTER Body Mass Index 27.89 09/04/2024 6:26 PM ASSEMBLER TESTER Plan of Treatment Not on file Insurance [employer] Care Teams Edi Specialist Relationship Specialty Start Date End Date Yadiel Leon DO PCP - General Family Medicine 02/09/23
--- OUTSIDE RECORDS SUMMARY | 2024-12-21 00:45 | XMS_ITS | Continuity of Care Document ---
Author Organization [facility] Address [address] [facility] [address] [place] [address] Phone Care Team Providers Care Artificial Glass Eye Maker Name Role Phone Jessica Hanson OD Unavailable Unavailable Allergies, Adverse Reactions, Alerts Substance Reaction Status Criticality No Known Allergies Active No Inform ation Medications Medication Instructions Dosage Effective Dates (start - stop) Status Comments Miebo 100 % eye drops instill 1 drop by ophthalmic route 4 times every day into both eyes for dryness - Active Please call pt at [phone] omeprazole 20 mg tablet,delayed release - Active [...] 1 capsule by oral route every month 27215 UNITS - Active L-Lysine 500 mg tablet [...] Provider Providers Copied on Encounter [facility], [address] [place] [address], [id number], tel:[phone] OPH CONSULT MU DUONG Post Op (chief complaint) Presence of intraocular lens Mar-2 - 5 Valentin Lopez. [address] [place] [address], [address], [place]. tel:[phone] Referring Provider: Christel Sandra OD, [address] [facility], [place], [address] . tel:[phone] [facility], [address] [place] [address], [id number], tel:[phone] OPH CONSULT MU DUONG Post Op (chief complaint) Presence of intraocular lens Mar-2 0- 5 Valentin Lopez. [address] [place] [address], [address], [place]. tel:[phone] Referring Provider: Christel Sandra OD, [address] [facility], [place], [address] . tel:[phone] [facility], [address] [place] [address], [place], [id number], [place] tel:[phone] OPH CONSULT MU DUONG Post OP (chief complaint) Other specified postprocedural states 5 Alyson Valdez. [address], [address], [place], [place], [id number], [place]. tel:[phone] Referring Provider: Christel Sandra OD, [address], [place], [address] . tel:[phone] [facility], [address] [place] [address], [place], [id number], [place] tel:[phone] OPH CONSULT MU DUONG YAG PC (chief complaint) Presence of intraocular lens 5 Alyson Valdez. [address], [address], [place], [place], [id number], [place]. tel:[phone] Referring Provider: Christel Sandra OD, [address], [place], [address] . tel:[phone] [facility], [address] [place] [address], [id number], [place] tel:[phone] OPH CONSULT MU DUONG Post Op (chief complaint) Presence of intraocular lens 5 Hanson Jessica. [address] [place] [address], [address], [place], [address], [place]. tel:[phone] Referring Provider: Christel Jocy OD, [address], [place], [address] . tel:[phone] [facility], [address] [place] [address], [id number], [place] tel:[phone] OPH CONSULT MU DUONG Post op (chief complaint) Presence of intraocular lens 5 Hanson Jessica. [address] [place] [address], [address], [place], [address], [place]. tel:[phone] Referring Provider: Christel Jocy OD, [address], [place], [address] . tel:[phone] [facility], [address] [place] [address], [id number], [place] tel:[phone] OPH CONSULT MU DUONG post op (chief complaint) Presence of intraocular lens Dec-1 4 Valentin Lopez. [address] [place] [address], [address], [place], [address], [place]. tel:[phone] Referring Provider: Christel Sandra OD, [address], [place], [address] . tel:[phone] [facility], [address] [place] [address], [place], [place], [id number], [place] tel:[phone] OPH CONSULT MU DUONG Post-Op (chief complaint) Age-related nuclear cataract, left eye Dec-1 4 Valentin Lopez. [address] [place] [address], [address], [place], [address], [place]. tel:[phone] Referring Provider: Christel Sandra OD, [address], [place], [address] . tel:[phone] [facility], [address] [place] [address], [place], [place], [id number], [place] tel:[phone] OPH CONSULT MU DUONG Post Op (chief complaint) Presence of intraocular lens Dec-0 4 Valentin Mays [address] [place] [address], [address], [place], [address], [place]. tel:[phone] Referring Provider: Christel Sandra OD, [address], [place], [address] . tel:[phone] [facility], [address] [place] [address], [id number], [place] tel:[phone] [facility] No Information 4 Alyson Valdez. [address] , [address], [place], [place], [id number], [place]. tel:[phone] Referring Provider: Christel Sandra OD, [address], [place], [address] . tel:[phone] [facility], [address] [place] [address], [id number], tel:[phone] [facility] No Information Nov0 - 4 Alyson Valdez. [address], [address], [place], [place], [id number], [place]. tel:[phone] Referring Provider: Christel Sandra OD, [address], [place], [address] . tel:[phone] [facility], [address] [place] [address], [id number], tel:[phone] OPH CONSULT MU DUONG No Information Jun-0 4 Alyson Valdez. [address], [address], [place], [place], [id number], [place]. tel:[phone] Referring Provider: Christel Sandra OD, [address], [place], [address] . tel:[phone] [facility], [address] [place] [address], [id number], tel:[phone] OPH CONSULT MU DUONG No Information 0 4 Valentin Lopez. [address] [place] [address], [address], [place], [address], [place]. tel:[phone] Referring Provider: Christel Sandra OD, [address], [place], [address] . tel:[phone] [facility], [address] [place] [address], [id number], [place] tel:[phone] OPH CONSULT MU DUONG No Information Nov0 - 4 Alyson Valdez. [address], [address], [place], [place], [id number], [place]. tel:[phone] Referring Provider: Christel Sandra OD, [address], [place], [address] . tel:[phone] [facility], [address] [place] [address], [id number], [place] tel:[phone] [facility] No Information May- 4 Alyson Valdez. [address], [address], [place], [place], [id number], [place]. tel:[phone] Referring Provider: Christel Sandra OD, [address], [place], [address] . tel:[phone] [facility], [address] [place] [address], [id number], [place] tel:[phone] OPH CONSULT MU DUONG No Information 4 Valentin Lopez. [address] [place] [address], [address] [facility], [place], [address], [place]. tel:[phone] Referring Provider: Christel Sandra OD, [address], [place], [address] . tel:[phone] [facility], [address] [place] [address], [id number], [place] tel:[phone] OPH CONSULT MU DUONG No Information 4 Alyson Valdez. [address], [address], [place], [place], [id number], [place]. tel:[phone] Referring Provider: Christel Sandra OD, [address], [place], [address] . tel:[phone] OFFICE/OUTPA TIENT VISIT, [facility], [address] [place] [address], [id number], [place] tel:[phone] OPH CONSULT MU DUONG Cataract Evaluation (chief complaint)F loaters (chief complaint)l esion (chief complaint) Age-related nuclear cataract, bilateralKerat oconjunct sicca, not specified as Sjogren's, bilateralOther vitreous opacities, bilateralDerma tochalasis of right upper eyelidDermatoc halasis of right lower eyelidDermatoc halasis of left upper eyelidDermatoc halasis of left lower eyelid Alyson Valdez. [address], [address], [place], [place], [id number], . tel:[phone] Referring Provider: Christel Sandra OD, [address], [place], [address] . tel:[phone] Family History Family Member Type Diagnosis Age At Onset Mother Problem glaucoma Payers Payer name Insurance type Covered libertarian ID Authoriza mark(s) Ryann CI [id number] Social History Type Description Quantity Date Captured [...] OUOD: GILSON target: -1.50 sphOS: GILSON Target: [place] (dom eye)Referredby Dr. Christel Sandra- Reason For [...] OUOD: GILSON target: -1.50 sphOS: GILSON Target: [place] (dom eye)Referred by Dr. Christel Sandra- Post [...] open; rather rolls it around while shut. Rfff-Fwiz-Uheh and Systane every hour OU and Meibo QID OS only Std/D GILSON; OU ORA OU, YAG OU, Hx of myopic lasik OUOD: GILSON target: -1.50 sphOS: GILSON Target: [place] (dom eye)Referred by Dr. Christel Sandra- Post OP The 69 year old female presents for evaluation of Post OP PRK OD. Vision seems to go in and out of focus and has a FBS, thinks due to BCL. Near vision seems ok since Sx. Using Yxpa-Jooe-Nrll and Systane every hour OU and Meibo QID OS only -Needs a refill of Meibo - do we have any samples s/p PCIOL OU 2023s/p YAG OU 2023 YAG PC Std/D GILSON; OU OR A OU, YAG OU, Hx of myopic lasik OUOD: GILSON target: -1.50sphOS: [place] Target: [place] (dom eye)Referred by Dr. Christel MoseslPatient states [...] OUOD: GILSON target: -1.50 sphOS: [place] Target: [place] (dom eye)Referred by Dr. Christel Sandra Post [...] myopic lasik OUOD: GILSON target: -1.50sph (mini [place])OS: GILSON Target: [place] (dom eye)Referred by Dr. Christel Sandra post [...] myopic lasik OUOD: GILSON target: -0.75sph (mini [place])OS: GILSON Target: [place] (dom eye)Referred by Dr. Christel Sandra Post-Op [...] myopic lasik OUOD: GILSON target: -0.75sph (mini [place])OS: GILSON Target: [place] (dom eye)Referred by Dr. Christel Sandra. Post [...] GILSON; OUORA OU YAG OUs.p myopic lasik; ZADnay-Mouk-Tnie TID, AT PRN; OSReferred by Dr. Christel [...] OU; 1999Referred by Dr. 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
--- OUTSIDE RECORDS SUMMARY | 2024-12-21 00:45 | XMS_ITS | Clinical Summary ---
Author Organization [facility] Address [address] [place] [address] Care Team Providers Care Battery Assembler Plastic Name Role Phone Unavailable Primary Care Provider [...] 1 - Tdap) 1974 Mammogram Screening 1995 Pneumococcal Vaccine: 50+ Ye ars (1 of 1 - PCV) 2005 Zoster Vaccines (1 of 2) 2005 Dexa Scan (General) 2020 COVID-19 Vaccine ( - 2023-2 5 [...]
[2024-12-21] MEDS: LACTATED RINGERS 1,000 ML 30 ML IV CONT ×2 (06:45→11:36)
[2024-12-21] MEDS: KETOROLAC 15 MG/ML VIAL (*BKC) IV PUSH (07:13)
[2024-12-21] MEDS: ACETAMINOPHEN 500 MG TABLET 1000 MG PO (07:13)
--- NOTE | 2024-12-21 07:23 | P.PNAN_ITS ---
Anes - Initial Pre Proc Eval Procedure: Operation Date: 12/21/24 07:30 Proposed Procedures p Robotic Repair Paraesophageal Hiatal Hernia with Fundoplication, - Watson Dumont MD s Laparoscopic Cholecystectomy - Watson Dumont MD Date/Time: 12/21/24 07:23 Surgeon: Watson Dumont MD Pre Op Diagnosis: paraesophageal hiatal hernia, cholelithiasis Patient Data Age: 69 Gender: F Height: 1.52 m Weight: 60.8 kg Last Vital Signs Temp 36.6 C 12/21/24 07:09 Pulse 84 12/21/24 07:09 Resp 18 12/03/24 12:51 BP 124/75 12/21/24 07:09 Pulse Ox 99 12/21/24 07:09 O2 Del Method Room Air 12/21/24 07:09 Allergies Allergy/AdvReac Type Severity Reaction Status Date / Time No Known Allergies Allergy Verified 12/21/24 07:08 Home Medications ?Medication ?Instructions ?Recorded ?Confirmed ?Type L-Lysine Complex 1 tab-cap PO DAILY 07/13/22 12/21/24 History psyllium husk 0.4 gram capsule 0.4 g PO DAILY 07/13/22 12/21/24 History (Metamucil) Calcium-Vitamin D 1 tab-cap PO DAILY #90 tabs 02/08/23 12/21/24 Rx ascorbic acid (vitamin C) 500 mg 500 mg PO DIRECTED 05/09/23 12/21/24 History capsule amlodipine 5 mg tablet See Rx Instructions .Route 03/05/24 12/21/24 Rx .COMPLEX #30 tabs ferrous sulfate 325 mg (65 mg 325 mg PO DAILY #90 tabs 06/27/24 12/21/24 Rx iron) tablet benzonatate 200 mg capsule 200 mg PO TID PRN cough #60 caps 09/10/24 12/03/24 Rx denosumab 60 mg/mL subcutaneous 60 mg subcut [id number] #1 mL 11/29/24 12/03/24 Rx syringe DHEA-PROGESTERONE 15 - 220 mg PO DAILY 12/03/24 12/21/24 History lovastatin 20 mg tablet 20 mg PO QPM 12/03/24 12/21/24 History semaglutide (weight loss) 0.5 0.5 mg subcut WEEKLY 12/03/24 12/21/24 History mg/0.5 mL subcutaneous pen injector (Tamir) omeprazole 40 mg capsule,delayed See Rx Instructions .Route 12/13/24 12/21/24 Rx release .COMPLEX #90 caps Patient hx anesthesia problems: none Family hx anesthesia problems: none Results Review: All pre-operative results and documents have been reviewed as part of the pre- operative evaluation. [facility] Past Medical History Medical History HTN (hypertension) Hyperlipidemia LDL goal <130 Surgical History Surgical History History of tubal ligation H/O vaginal hysterectomy Family History Family History Mother , Age 80 - Alzheimer's Disease No problems noted. Father , Age 78 - Myocardial Infarction No problems noted. Grandparent , - Myocardial Infarction No problems noted. Grandparent , - Myocardial Infarction No problems noted. Grandparent , Age 80 - Alzheimer's Disease No problems noted. Grandparent , - Myocardial Infarction No problems noted. Sibling , Age 42 - Myocardial Infarction No problems noted. Sibling , Age 57 - Cancer No problems noted. Unknown Hypertension Heart disease Cerebrovascular accident Social History Social History Smoking status: Never smoker Alcohol intake: current Drinks per week: 1 Alcohol use details: rarely Substance use: never Substance use type: does not use Do You Feel Safe in your Home?: Yes Lack of Transportation: No Lack of Food: Never True Current Housing: I Have Housing Concerned About Future Housing: No Difficulty Paying Gas/Electric Bills: No Difficulty Paying for Meds: No Currently Unemployed: No Education: Master's Degree or Higher Difficulty w/ Childcare or Family Care: No Living arrangements: with family Spiritual care concerns: No Anes - Eval Final PreProcedure Day of Procedure 12/21/24 07:23 Patient weight: overweight Heart: regular rate and rhythm Lungs: clear to auscultation Airway: Mallampati scale class II Neurological: alert and oriented Last oral intake: >/= 8 hours ASA classification: III Emergent: no Anesthetic plan: proceed Anesthesia type and monitoring: general ETT and standard monitoring Results Review: All pre-operative results and documents have been reviewed as part of the pre- operative evaluation. Informed Consent: The patient's anesthetic plan and its attendant risks and benefits were discussed with the patient/family/POA. Questions were solicited and answers provided to the satisfaction of the patient/family/POA.
--- NOTE | 2024-12-21 07:33 | WPDHPUPDATE1 ---
History and Physical Update Update Date/Time: 12/21/24 07:33 I discussed again preoperatively my concern for significant postop diarrhea if we remove patient's gallbladder and perform hiatal hernia repair at same procedure. Patient does have gallstones and some symptoms that may be due to her gallbladder. However, it seems that far and away the majority of her symptoms, and likely all, are due to her paraesophageal hernia. She has had some concerns about doing the 2 procedures at the same time. I am afraid doing both will cause significant dumping syndrome and I have seen that in the past. After discussion with patient and her , we will cancel the laparoscopic cholecystectomy and proceed with only the repair paraesophageal hiatal hernia with fundoplication. History and Physical has been reviewed, including an updated exam of the patient. There are NO changes in the patient's condition. Risks, benefits, and alternatives have been discussed and questions answered. Patient agrees to proceed with procedure.
[2024-12-21] MEDS: ceFAZolin 2 GM/D5W 50 ML 2 GM/50 ML BAG IVPB (07:34)
[2024-12-21] MEDS: BUPIVACAINE/EPINEPHRINE 0.5% 50 ML VIAL 35 ML INFILTRATE (10:22)
[2024-12-21] MEDS: ONDANSETRON INJ 4 MG/2 ML VIAL IV PUSH ×2 (12:58→17:15)
[2024-12-21] MEDS: fentaNYL CITRATE INJ (*CRX) 100 MCG/2 ML VIAL 25 MCG IV PUSH (13:08)
--- NOTE | 2024-12-21 13:39 | ADMGEN ---
This patient, Mireya Duarte, was admitted to [facility] Surg Room 329-01. Patient/family oriented to hospital policies and general routines including ID bracelet, bed and alarms, visiting hours, pain management, procedures, bathroom and other care routines, personal items, smoking policy, room service/diet, and visiting hours. Information on how to activate the Rapid Response Team has been discussed. Patient/Family are encouraged to report perceived risks to care and to ask questions if they do not understand what they are told or what they should do.
[2024-12-21] MEDS: LACTATED RINGERS 1,000 ML 100 ML IV CONT (13:52)
[2024-12-21] MEDS: oxyCODONE (*CRX) 5 MG/5 ML ORAL SOLN IR PO (13:56)
--- NOTE | 2024-12-21 15:20 | P.OP_ITS ---
Procedure Note - Detailed Date of Procedure 12/21/24 Pre-op Diagnosis paraesophageal hiatal hernia Post-op Diagnosis Same Procedure Performed Robotic laparoscopic repair paraesophageal hiatal hernia with partial fundoplasty and fundopexy Surgeon Watson Dumont MD Dehydrator Neida Silveira [facility] Anesthesia General and Local Indications Patient has long history of gastroesophageal reflux but lately this has been accompanied by significant dysphagia such that she can only eat a small amount at a time and very slowly. Even with twice a day acid reduction medication, she still gets heartburn and dysphagia. She also has gallstones and initially we thought repair of her hiatal hernia and cholecystectomy would be in order. However, doing both those surgeries can result in significant diarrhea and patient symptoms are mostly related to her paraesophageal hiatal hernia. She is taken to surgery now for robotic repair of paraesophageal hiatal hernia with partial fundoplasty and fundopexy. Findings Large hiatal hernia, paraesophageal hiatal hernia, fatty liver Description of Procedure Patient was taken to surgery and induced into general anesthesia. Carpenter catheter was placed. She was placed in breaks leg splitter. The abdomen is prepped and draped. The initial trocar was placed in the left subcostal position. Local was infiltrated and a small incision made. Varies needle was introduced and adequate peritoneal insufflation carried out. We then converted the varies needle to a 5 mm applied Medical optical trocar. With this trocar in place the right subcostal and epigastric trocars were placed. The 10 11 trocar was placed just above the umbilicus. Finally the left lateral robotic trocar was placed. Patient was placed in steep reverse Trendelenburg. The robotic arms were brought into the field and the camera was docked and targeted. The other instruments were also placed and positioned. The surgeon then went to the robotic console. The gastrohepatic ligament was taken down using the vessel sealer. The 1st paraprofessional education assistant was then able to grasp the hernia sac at the apex of the hiatus. A plane was developed by the surgeon using the vessel sealer to gai n access to the mediastinum outside of the hernia sac. From there dissection in the mediastinum was continued freeing the hernia sac from adjacent tissues while reducing the stomach. Attachments of the hernia sac to the right cristin were taken down completely using the vessel sealer. Dissection of the hernia sac on the patient's right side was developed completely down the length of the right cristin. We then turned our attention to the left cristin. In similar fashion the left cristin was divided from the hernia sac. The hernia sac and the stomach or further reduced. After reducing the hernia sac to about alf down the left cristin, I turned to the greater curvature of the stomach and the attached greater omentum. Again using the vessel sealer, I divided the vessels and attachments of the greater omentum to the greater curvature. I gained access to lesser sac. The 1st paraprofessional education assistant was able to move up the greater curvature and help with exposure. Eventually we came to the area of the spleen and these short gastrics were carefully divided as well. As the more posterior aspect of the left cristin was exposed, we divided the hernia sac from the left cristin and followed it down to the junction of the right and left cristin. At this point the hernia sac was pretty well reduced. I did some additional dissection in the mediastinum of the anterior aspect of the esophagus as well as the right and left aspects of the esophagus to further mobilize the stomach. I then removed the hernia sac from the left side of the stomach up to the fat pad and angle of Hiss. This portion of hernia sac was removed from the abdomen and discarded. mental health assistant then placed some traction on the stomach and I was able to look up into the mediastinum and proceed with additional esophageal dissection and mobilization. I started anteriorly on the esophagus and went very high in this position. I then turned my attention to the left-sided posterior 3rd of the esophagus and, again using the vessel sealer, carefully dissected esophageal attachments here. Care was taken to avoid the vagus nerves as well as the left-sided pleura. I dissected under the esophagus as well. Finally, our attention turned to the right side of the esophagus. In similar fashion, area older tissue was divided and care was taken to avoid the right-sided pleura. Right-sided attachments of the esophagus were then taken down with the vessel sealer. Esophageal more ability and dissection was continued 360? to the upper most part of the anterior dissection. We then released instruments from all gastric and esophageal st ructures. The stomach did lay in the abdominal cavity with at least 5 cm of intra-abdominal esophagus. We then proceeded with hiatal closure. I used 1 [id number] 0 Ethibond suture to close the posterior aspect of the hiatus. I used a 2nd [id number] mattress of 0 Ethibond to close the anterior aspect of the hiatus leaving the the soft Gee itself proceeding easily through the hiatus without any angulation. All looked good. I then had the 1st paraprofessional education assistant [place] pass the paddle Peter's under the esophagus and I placed the upper fundus into this grasper. The grasper was brought through the window posterior to the intra-abdominal esophagus creating the right side of the fundoplasty. I then used 0 Ethibond sutures and placed 2 sutures through stomach, diaphragm, and esophagus. A 3rd suture just included stomach and upper aspect of the diaphragmatic hiatus. Once these 3 sutures were all placed satisfactorily, we then turned our attention to the left side of the diaphragmatic hiatus. The left-sided wrap was also sutured with 3 sutures. The 1st 2 included stomach, hiatus, and esophagus. The 3rd suture included only stomach and hiatus. Once all these sutures were tied down in were in place, we suctioned some old blood from the left upper quadrant around the area of the spleen. All looked good. There was no bleeding from the dissection or suturing. We then removed the instruments and undocked the robot. CO2 was evacuated from the abdominal cavity. Trocars were then removed. Skin wounds were closed with subcuticular 4-0 Monocryl skin suture. The wounds were dressed with Exofin surgical adhesive. The patient was awakened and taken to recovery in good condition. Sponge and needle counts were correct x2. Estimated Blood Loss -100 Drains No Packing No Pathology None sent Complications None Condition Stable Disposition PACU [facility] Billing Surgery - Charge Forward: Surgery Billing (Robotic laparoscopic repair paraesophageal hiatal hernia with partial fundoplasty and fundopexy)
[2024-12-21] MEDS: IBUPROFEN IV 800 MG/200 ML 800 MG/200 ML BAG 400 MG IVPB (16:11)
--- NOTE | 2024-12-21 21:09 | PC.NURSE ---
Spoke w/ Dr. Hernandez regarding patients Lovastatin as patient asked for medication this evening. Per Dr. Hernandez med should be held tonight.
[2024-12-22] VITALS (7 sets, daily range): BP systolic 120–144; BP diastolic 65–71; PULSE 75–85; RESP 18; TEMP 35.8–37.4; O2SAT 95–99
[2024-12-22] MEDS: oxyCODONE (*CRX) 5 MG/5 ML ORAL SOLN IR PO ×2 (00:35→06:51)
[2024-12-22 05:31] LABS: Hematocrit 36.7 % (37.0-47.0); Mean Corpuscular HGB Conc 32.7 g/dl (32-36); Mean Corpuscular Hemoglobin 30.8 pg (26-34); Mean Corpuscular Volume 94.1 fl (80-100); Mean Platelet Volume 9.9 fl (7.4-10.4); Platelet Count Result 187 k/mm3 (150-375); Red Cell Distribution Width 12.7 % (11.5-14.5); White Blood Count 12.9 K/mm3 (4.5-10.0)
[2024-12-22 05:44] LABS: Anion Gap 6 mmol/L (4-12); Blood Urea Nitrogen 7 mg/dL (7-17); Carbon Dioxide 27 mmol/L (22-30); Chloride 104 mmol/L (98-107); Estimated CRCL calculation 60 ml/min; Estimated Glomerular Filt Rate > 60; Glucose 81 mg/dL (65-110); Potassium 3.5 mmol/L (3.4-5.0); Sodium 137 mmol/L (137-145)
[2024-12-22] MEDS: ENOXAPARIN 40 MG/0.4 ML SYRINGE SUB-Q (09:45)
[2024-12-22] MEDS: amLODIPine BESYLATE 5 MG TABLET BY MOUTH (09:45)
[2024-12-22] MEDS: polyethylene glycoL 3350 17 GM POWD.PACK PO (09:45)
[2024-12-22] MEDS: ACETAMINOPHEN ELIXIR 325 MG/10.15 ML UDC 650 MG PO ×2 (10:24→22:05)
--- NOTE | 2024-12-22 13:55 | PM.PNGS ---
Progress Note: A&P Assessment and Plan (1) Hiatal hernia: Code(s): K44.9 - Diaphragmatic hernia without obstruction or gangrene Status: Acute Assessment and Plan: doing well, will advance to full liquids, encourage OOB/IS Subjective Subjective Date/Time Seen: 12/22/24 13:55 Interval history: feels good, mild incisional soreness Review of Systems Review of Systems: All systems reviewed & are unremarkable except as noted in HPI and below Exam Const: General: cooperative, comfortable and no acute distress Resp: Auscultation: clear to auscultation bilaterally Cardio: Rate: regular rate Rhythm: regular rhythm GI: Inspection: normal to inspection and incision GI Palp: Yes abdominal tenderness and Yes Soft to palpation Objective Data Vital Signs Vital Signs: Vital Signs - 24 hr 12/21/24 14:12 12/21/24 15:12 12/21/24 20:00 Temperature 36.3 C L 36.4 C Pulse Rate 82 80 96 Respiratory Rate 20 18 18 Blood Pressure 114/59 L 120/60 Pulse Oximetry 96 97 97 Oxygen Delivery Room Air 12/21/24 20:18 12/22/24 04:57 12/22/24 07:12 Temperature 36.4 C 36.6 C 37.4 C Pulse Rate 96 81 84 Respiratory Rate 18 18 18 Blood Pressure 142/72 H 144/67 H 120/65 Pulse Oximetry 97 97 96 Oxygen Delivery 12/22/24 09:01 Temperature Pulse Rate Respiratory Rate Blood Pressure Pulse Oximetry 95 Oxygen Delivery Room Air Intake/Output Intake/Output: Intake & Output 12/19/24 12/20/24 12/21/24 12/22/24 23:59 23:59 23:59 23:59 Intake Total 590 240 Output Total 800 Balance -210 240 Meds/Results Medications: Active Medications Generic Name Dose Route Start Last Admin Trade Name Freq PRN Reason Stop Dose Admin Acetaminophen 650 mg 12/21/24 13:27 12/22/24 10:24 Acetaminophen Elixir 325 Mg/10.15 Ml Udc PO 650 mg Q4H PRN Administration Mild Pain (1-3) or Fever Amlodipine Besylate 5 mg 12/22/24 09:00 12/22/24 09:45 Amlodipine Besylate 5 Mg Tablet BY MOUTH 5 mg DAILY ISAMAR Administration Enoxaparin Sodium 40 mg 12/22/24 09:00 12/22/24 09:45 Enoxaparin 40 Mg/0.4 Ml Syringe SUB-Q 40 mg DAILY ISAMAR Administration Ibuprofen 800 mg in 200 mls @ 400 mls/hr 12/21/24 13:27 12/21/24 16:11 Caldolor 800 Mg/200 Ml IVPB 400 mls/hr Q6H PRN Administration Breakthrough Pain Rated 1-3 or NPO Morphine Sulfate 4 mg 12/21/24 13:27 Morphine Sulfate (*Crx) 4 Mg/Ml Inj IV PUSH Q2H PRN Breakthrough Pain Rated 7-10 or NPO Morphine Sulfate 2 mg 12/21/24 13:27 Morphine Sulfate (*Crx) 2 Mg/Ml Inj IV PUSH Q2H PRN Breakthrough Pain Rated 4-6 or NPO Naloxone HCl 0.1 mg 12/21/24 13:27 Naloxone Hcl 0.4 Mg/Ml Vial IV PUSH Q2M PRN Opiate Reversal Ondansetron HCl 4 mg 12/21/24 13:27 12/21/24 17:15 Ondansetron Inj 4 Mg/2 Ml Vial IV PUSH 4 mg Q4H PRN Administration Nausea And Vomiting Oxycodone HCl 5 mg 12/21/24 13:27 12/22/24 06:51 Oxycodone (*Crx) 5 Mg/5 Ml Oral Soln Ir PO 5 mg Q4H PRN Administration Pain Rated 4-6 Polyethylene Glycol 17 gm 12/22/24 09:00 12/22/24 09:45 Polyethylene Glycol 3350 17 Gm Powd.Pack PO 17 gm QAM ISAMAR Administration Labs Labs: Laboratory Results - last 24 hr 12/22/24 05:16 WBC 12.9 H RBC 3.90 L Hgb 12.0 Hct 36.7 L MCV 94.1 MCH 30.8 MCHC 32.7 RDW 12.7 Plt Count 187 MPV 9.9 Sodium 137 Potassium 3.5 Chloride 104 Carbon Dioxide 27 Anion Gap 6 BUN 7 Creatinine 0.61 L Estim Creat Clear Calc 60 Estimated GFR > 60 Glucose 81 Calcium 8.0 L
[2024-12-22] MEDS: IBUPROFEN IV 800 MG/200 ML 800 MG/200 ML BAG 400 MG IVPB (14:28)
[2024-12-23] MEDS: ACETAMINOPHEN ELIXIR 325 MG/10.15 ML UDC 650 MG PO ×3 (03:54→19:37)
[2024-12-23 06:00] VITALS: BP 135/69; PULSE 78; RESP 18; TEMP 36.3; O2SAT 94
[2024-12-23 06:10] LABS: Hematocrit 38.7 % (37.0-47.0); Mean Corpuscular HGB Conc 33.6 g/dl (32-36); Mean Corpuscular Hemoglobin 31.1 pg (26-34); Mean Corpuscular Volume 92.6 fl (80-100); Platelet Count Result 184 k/mm3 (150-375); Red Blood Count 4.18 M/mm3 (4.2-5.4); Red Cell Distribution Width 12.9 % (11.5-14.5); White Blood Count 10.2 K/mm3 (4.5-10.0)
[2024-12-23 06:31] LABS: Anion Gap 9 mmol/L (4-12); Blood Urea Nitrogen 6 mg/dL (7-17); Calcium 8.2 mg/dL (8.4-10.2); Carbon Dioxide 25 mmol/L (22-30); Chloride 103 mmol/L (98-107); Estimated CRCL calculation 70 ml/min; Estimated Glomerular Filt Rate > 60; Glucose 87 mg/dL (65-110); Potassium 3.3 mmol/L (3.4-5.0); Sodium 137 mmol/L (137-145)
[2024-12-23] MEDS: amLODIPine BESYLATE 5 MG TABLET BY MOUTH (07:59)
[2024-12-23] MEDS: polyethylene glycoL 3350 17 GM POWD.PACK PO (07:59)
--- NOTE | 2024-12-23 10:09 | PM.PNGS ---
Progress Note: A&P Assessment and Plan (1) Hiatal hernia: Code(s): K44.9 - Diaphragmatic hernia without obstruction or gangrene Status: Acute Assessment and Plan: doing well, continue full liquid diet, continue to encourage ambulation/IS, likely home tomorrow Subjective Subjective Date/Time Seen: 12/23/24 10:09 Interval history: doing well, complaining of shoulder pain, was up ambulating hallways this morning Review of Systems Review of Systems: All systems reviewed & are unremarkable except as noted in HPI and below Exam Const: General: cooperative, comfortable and no acute distress Resp: Auscultation: clear to auscultation bilaterally Cardio: Rate: regular rate Rhythm: regular rhythm GI: Inspection: normal to inspection and incision GI Palp: Yes abdominal tenderness and Yes Soft to palpation Objective Data Vital Signs Vital Signs: Vital Signs - 24 hr 12/22/24 11:12 12/22/24 15:12 12/22/24 20:00 Temperature 37.0 C 36.9 C Pulse Rate 75 78 85 Respiratory Rate 18 18 18 Blood Pressure 130/70 129/71 Pulse Oximetry 96 99 95 Oxygen Delivery Room Air 12/22/24 21:13 12/23/24 06:00 Temperature 35.8 C L 36.3 C L Pulse Rate 85 78 Respiratory Rate 18 18 Blood Pressure 143/67 H 135/69 Pulse Oximetry 95 94 Oxygen Delivery Intake/Output Intake/Output: Intake & Output 12/20/24 12/21/24 12/22/24 12/23/24 23:59 23:59 23:59 23:59 Intake Total 790 680 Output Total 800 Balance -10 680 Meds/Results Medications: Active Medications Generic Name Dose Route Start Last Admin Trade Name Freq PRN Reason Stop Dose Admin Acetaminophen 650 mg 12/21/24 13:27 12/23/24 07:57 Acetaminophen Elixir 325 Mg/10.15 Ml Udc PO 650 mg Q4H PRN Administration Mild Pain (1-3) or Fever Amlodipine Besylate 5 mg 12/22/24 09:00 12/23/24 07:59 Amlodipine Besylate 5 Mg Tablet BY MOUTH 5 mg DAILY ISAMAR Administration Enoxaparin Sodium 40 mg 12/22/24 09:00 12/23/24 07:55 Enoxaparin 40 Mg/0.4 Ml Syringe SUB-Q Not Given DAILY ISAMAR Ibuprofen 800 mg in 200 mls @ 400 mls/hr 12/21/24 13:27 12/22/24 14:58 Caldolor 800 Mg/200 Ml IVPB Infused Q6H PRN Infusion Breakthrough Pain Rated 1-3 or NPO Morphine Sulfate 4 mg 12/21/24 13:27 Morphine Sulfate (*Crx) 4 Mg/Ml Inj IV PUSH Q2H PRN Breakthrough Pain Rated 7-10 or NPO Morphine Sulfate 2 mg 12/21/24 13:27 Morphine Sulfate (*Crx) 2 Mg/Ml Inj IV PUSH Q2H PRN Breakthrough Pain Rated 4-6 or NPO Naloxone HCl 0.1 mg 12/21/24 13:27 Naloxone Hcl 0.4 Mg/Ml Vial IV PUSH Q2M PRN Opiate Reversal Ondansetron HCl 4 mg 12/21/24 13:27 12/21/24 17:15 Ondansetron Inj 4 Mg/2 Ml Vial IV PUSH 4 mg Q4H PRN Administration Nausea And Vomiting Oxycodone HCl 5 mg 12/21/24 13:27 12/22/24 06:51 Oxycodone (*Crx) 5 Mg/5 Ml Oral Soln Ir PO 5 mg Q4H PRN Administration Pain Rated 4-6 Polyethylene Glycol 17 gm 12/22/24 09:00 12/23/24 07:59 Polyethylene Glycol 3350 17 Gm Powd.Pack PO 17 gm QAM COUNT INCLUDES THE [facility] Administration Labs Labs: Laboratory Results - last 24 hr 12/23/24 05:56 WBC 10.2 H RBC 4.18 L Hgb 13.0 Hct 38.7 MCV 92.6 MCH 31.1 MCHC 33.6 RDW 12.9 Plt Count 184 MPV 10.0 Sodium 137 Potassium 3.3 L Chloride 103 Carbon Dioxide 25 Anion Gap 9 BUN 6 L Creatinine 0.52 L Estim Creat Clear Calc 70 Estimated GFR > 60 Glucose 87 Calcium 8.2 L
[2024-12-23] MEDS: IBUPROFEN IV 800 MG/200 ML 800 MG/200 ML BAG 400 MG IVPB (11:53)
[2024-12-23 14:35] VITALS: BP 123/89; PULSE 79; RESP 18; TEMP 36.2; O2SAT 97
[2024-12-23 21:12] VITALS: BP 136/74; PULSE 79; RESP 20; TEMP 36.6; O2SAT 95
[2024-12-24] MEDS: oxyCODONE (*CRX) 5 MG/5 ML ORAL SOLN IR PO (00:45)
[2024-12-24] MEDS: ACETAMINOPHEN ELIXIR 325 MG/10.15 ML UDC 650 MG PO ×2 (05:19→09:21)
[2024-12-24 05:47] VITALS: BP 128/65; PULSE 75; RESP 20; TEMP 36.5; O2SAT 94
[2024-12-24 06:24] LABS: Hematocrit 42.2 % (37.0-47.0); Mean Corpuscular HGB Conc 33.2 g/dl (32-36); Mean Corpuscular Hemoglobin 30.7 pg (26-34); Mean Corpuscular Volume 92.5 fl (80-100); Mean Platelet Volume 9.9 fl (7.4-10.4); Platelet Count Result 187 k/mm3 (150-375); Red Blood Count 4.56 M/mm3 (4.2-5.4); Red Cell Distribution Width 12.8 % (11.5-14.5); White Blood Count 9.5 K/mm3 (4.5-10.0)
[2024-12-24 06:38] LABS: Anion Gap 8 mmol/L (4-12); Blood Urea Nitrogen 8 mg/dL (7-17); Calcium 8.4 mg/dL (8.4-10.2); Carbon Dioxide 24 mmol/L (22-30); Chloride 103 mmol/L (98-107); Estimated CRCL calculation 72 ml/min; Estimated Glomerular Filt Rate > 60; Glucose 86 mg/dL (65-110); Potassium 3.3 mmol/L (3.4-5.0); Sodium 135 mmol/L (137-145)
[2024-12-24] MEDS: amLODIPine BESYLATE 5 MG TABLET BY MOUTH (09:16)
[2024-12-24] MEDS: ENOXAPARIN 40 MG/0.4 ML SYRINGE SUB-Q (09:18)
--- NOTE | 2024-12-24 09:48 | P.DS_ITS ---
DS: Admitting Diagnosis Discharge Date 12/24/2024 Admitting Diagnosis Paraesophageal hiatal hernia DS: Discharge Diagnosis Discharge Diagnosis (1) Paraesophageal hiatal hernia: Code(s): K44.9 - Diaphragmatic hernia without obstruction or gangrene Status: Acute DS: Summary Hospital Course Reason for hospitalization: This is a 69-year-old woman with a longstanding history of gastroesophageal reflux that was recently also accompanied by significant dysphagia, which affected her oral intake. She had persistent symptoms despite acid reduction medication. She has been evaluated by Dr. Dumont as an outpatient and presents now for robotic repair of paraesophageal hiatal hernia with partial fundoplasty and fundopexy. Hospital Course: Patient underwent robotic laparoscopic repair paraesophageal hiatal hernia with partial fundoplasty and fundopexy by Dr. Dumont on 12/21/2024. She had intraoperative findings of a large hiatal hernia, paraesophageal hiatal hernia, and fatty liver. Her diet was slowly advanced from clear liquids to full liquids by postop day 1. She has not had any issues with dysphagia or regurgitation. Serial labs were monitored postoperatively [place] [id number] on postop day 1, which normalized by postop day 3. She also had mild hypokalemia and had oral potassium chloride replacement prior to discharge. She additionally had some mild shoulder pain, but her postoperative incisional pain has been well controlled with liquid Tylenol and oxycodone. She is tolerating activity and voiding without difficulty. She is stable for discharge today and has a follow-up appointment scheduled with Dr. Dumont as an outpatient. Status at Discharge Functional status at discharge: independent ambulation Overall status at discharge: patient is progressing back to baseline Time Spent with Patient Time attestation: Total time spent providing and/or coordinating discharge services: Time spent: Less than 30 minutes Exam Const: General: comfortable and no acute distress GI: Inspection: non-distended and incision (incisions dry and intact) GI Palp: Yes Soft to palpation, Yes Tenderness to palpation present (GI) (incisional) and No Guarding due to palpation present (GI) Auscultation: normal bowel sounds Neuro: General: moves all extremities and no focal motor deficits Extrem: General: no calf tenderness and no edema Psych: Mental Status: mental status grossly normal Insight: Good insight present (Psych) DS: Data Data Completed and Pending Labs on day of discharge: Labs from last 24 hours 12/24/24 05:53 WBC 9.5 RBC 4.56 Hgb 14.0 Hct 42.2 MCV 92.5 MCH 30.7 MCHC 33.2 RDW 12.8 Plt Count 187 MPV 9.9 Sodium 135 L Potassium 3.3 L Chloride 103 Carbon Dioxide 24 Anion Gap 8 BUN 8 Creatinine 0.50 L Estim Creat Clear Calc 72 Estimated GFR > 60 Glucose 86 Calcium 8.4 Procedures/Treatments: Procedures Operation Date: 12/21/24 07:30 Actual Procedure Side Surgeon p Robotic Repair Paraesophageal Hiatal Hernia with Fundoplication, Not Applicable Watson Dumont MD Discharge Plan Discharge Attending physician on discharge: Watson Dumont Discharging Clinician: Kelsey Hendricks Anticipated Discharge Date/Time: 12/24/24 09:49 Patient Disposition: Home Activity: may shower and other - see discharge instructions Diet: other - see discharge instructions Wound Care Instructions: incision open to air Discharge Instructions: Surgery Discharge Instructions: * No heavy lifting more than 15-20 pounds x 2-3 weeks. * May shower, do not submerge in water for 2 weeks. * Walk at least 3-4 times daily * Do not drive x 3 days or while taking narcotic pain medication. * Follow-up with Dr. Dumont as scheduled in our office on 01/03/2025 at 8:45 a.m.. Call sooner with any surgical questions or concerns. * Prescription was sent to the pharmacy for liquid Tylenol and oxycodone. * Continue a full liquid diet for 2 weeks. Advancing your diet will be discussed in your follow-up appointment with Dr. Dumont. Patient Instructions: Antibiotic Form Patient Language: [place] Stand Alone Forms: General Discharge Information Follow-up/Referrals: Watson Dumont MD [Physician] - Keep Reg. Scheduled Appt. Discharge Medications: New acetaminophen 160 mg/5 mL elixir 640 mg PO Q4-6H PRN (Reason: pain (scale score 1-3)) Qty: 473 2RF polyethylene glycol 3350 [Miralax] 17 gram Powder In Packet 17 g PO QAM 10 Days Qty: 14 0RF oxycodone 5 mg/5 mL Solution 5 mg PO Q4-6H PRN (Reason: Pain Rated 4-6) Qty: 100 0RF Continued Wegovy 0.5 mg/0.5 mL pen injector 0.5 mg subcut WEEKLY Patient Comments: TAKES EVERY 10 DAYS lovastatin 20 mg tablet 20 mg PO QPM Rx Instructions: TAKE 1 TABLET DAILY DHEA-PROGESTERONE 15 - 220 mg PO DAILY psyllium husk [Metamucil] 0.4 gram Capsule 0.4 g PO DAILY L-Lysine Complex 1 tab-cap PO DAILY Calcium-Vitamin D 1 tab-cap PO DAILY Qty: 90 0RF ascorbic acid (vitamin C) 500 mg capsule 500 mg PO DIRECTED amlodipine 5 mg tablet See Rx Instructions .ROUTE .COMPLEX Qty: 30 11RF Dose Instruction: TAKE 1 TABLET DAILY Rx Instructions: TAKE 1 TABLET DAILY ferrous sulfate 325 mg (65 mg iron) tablet 325 mg PO DAILY Qty: 90 1RF denosumab 60 mg/mL syringe 60 mg subcut [id number] Qty: 1 2RF omeprazole 40 mg capsule,delayed release(DR/EC) See Rx Instructions .ROUTE .COMPLEX Qty: 90 3RF Dose Instruction: TAKE 1 CAPSULE BY MOUTH EVERY DAY Rx Instructions: TAKE 1 CAPSULE BY MOUTH EVERY DAY Discontinued benzonatate 200 mg capsule 200 mg PO TID PRN (Reason: cough) Qty: 60 1RF Date of admission: 12/22/24 16:39 Primary Care Provider: Nithya Cordon Admitting Provider: Watson Dumont Attending physician on admission: Watson Dumont Condition: Stable Quality VTE Prophylaxis VTE prophylaxis: mechanical ordered and pharmacologic ordered
[2024-12-24] MEDS: POTASSIUM CHLORIDE 20 MEQ PACKET (FOR LIQUID) 40 MEQ PO (10:17)
== END 2024-12-24 10:40 | disposition home or self-care (01) ==
LOC: ANHSURGERY 16:42 → ANH3MEDSUR 16:42
PROVIDERS: Admitting Provider Surgery; PCP Family Medicine; Visit Provider Surgery
PROC: 0DV44ZZ Restriction of Esophagogastric Junction, Percutaneous Endoscopic Approach (ICD-10-PCS; CPT 43280; principal; 2024-12-21 07:30)
DX: K44.9 Diaphragmatic hernia without obstruction or gangrene (principal); K80.10 Calculus of gallbladder with chronic cholecystitis without obstruction; R13.10 Dysphagia, unspecified; K21.9 Gastro-esophageal reflux disease without esophagitis; K76.0 Fatty (change of) liver, not elsewhere classified; I10 Essential (primary) hypertension; E78.5 Hyperlipidemia, unspecified; E87.6 Hypokalemia; Z98.51 Tubal ligation status; Z90.710 Acquired absence of both cervix and uterus
CPT/HCPCS: 43281; S2900; 36415; 80048; 85027; 86850; 86900; 86901; A9270; G0378; J0690; J1100; J1650; J1741; J1885; J2250; J2270; J2405; J2704; J3010; J7030; J7120

== ENCOUNTER 2025-05-27 12:40 | Outpatient (CLI) | payer OTHER, SELFPAY ==
--- NOTE | ~2025-05-27 | CT_ITS ---
EXAMINATION: CT abdomen wo con DATE: 05/27/2025 12:55 INDICATION: Right adrenal mass. TECHNIQUE: Computed tomography (CT) of the abdomen was performed without intravenous contrast. Automated exposure control and iterative reconstruction technique were employed. The dose-length product was 145.90 mGy-cm. COMPARISON: CT 11/23/24 FINDINGS: The visualized portions of lung bases demonstrate mild atelectasis. There is a 3 mm nodule in right lower lobe, likely benign. There is a 7 mm nodule in basilar left lower lobe. No pleural effusion. The heart size is normal. No pericardial effusion. The liver is normal. There are gallstones in the gallbladder, which is normal in size. The spleen and pancreas are normal. There is a 2.5 cm mass measuring low attenuation in right adrenal gland, consistent with an adenoma. There is a 1.0 cm mass measuring low attenuation in left adrenal gland, consistent with an adenoma. The kidneys are normal. There are no dilated loops of bowel. There are no pathologically enlarged lymph nodes. There is no free intraperitoneal fluid. There is severe thoracic and lumbar spondylosis. IMPRESSION: 1. Bilateral adrenal adenomas. 2. New 7 mm nodule in basilar left lower lobe suspicious for primary bronchogenic carcinoma. Noncontrast low-dose chest CT is recommended in 3 months. Reviewed, dictated and finalized at location E. IMPRESSION: 1. Bilateral adrenal adenomas. 2. New 7 mm nodule in basilar left lower lobe suspicious for primary bronchogen ic carcinoma. Noncontrast low-dose chest CT is recommended in 3 months.
--- OUTSIDE RECORDS SUMMARY | 2025-05-27 12:45 | XMS_ITS | Clinical Summary ---
Author Organization [facility] Address [address] [place] [address] Care Team Providers Care Qa Tester Name Role Phone CarolynYadiel Primary Care Provider [phone] Allergies No known active allergies Medications amLODIPine [...] on file Legal Sex Female 6:23 AM DRYWALL HANGER HELPER Gender Identity Not on file Sexual Orientation Not on file Obstetrics History Last Filed Vital Signs Vital Sign Reading Time Taken Comments Blood Pressure 142/85 09/04/2024 6:26 PM DRYWALL HANGER HELPER Pulse 108 09/04/2024 6:26 PM DRYWALL HANGER HELPER Temperature 36.8 C (98.3 F) 09/04/2024 6:26 PM DRYWALL HANGER HELPER Respiratory Rate 20 09/04/2024 6:26 PM DRYWALL HANGER HELPER Oxygen Saturation 96% 09/04/2024 6:26 PM DRYWALL HANGER HELPER Inhaled Oxygen Concentration - - Weight 67 kg (147 lb 9.6 oz) 09/04/2024 6:26 PM DRYWALL HANGER HELPER Height 154.9 cm (5' 1) 09/04/2024 6:26 PM DRYWALL HANGER HELPER Body Mass Index 27.89 09/04/2024 6:26 PM DRYWALL HANGER HELPER Plan of Treatment Health Maintenance Due Date Last Done Comments Colon Cancer Screening-Colonoscopy 1955 Depression Screening 1955 Fall Risk Assessment 1955 Hepatitis C Screening 1955 Osteoporosis Screening-Bone Density Scan 1955 DTaP/Tdap/Td Vaccine (1 - Tdap) 1966 Hepatitis B Screening 1973 Breast Cancer Screening-Mammogram 04/26/2019 04/26/2018, 04/27/2017, 04/20/2016, Additional history exists Well Visit 65+ 2020 Covid-19 Vaccine (2024-2 6 season) 2025 05/29/2022, 11/30/2021, 06/28/2021, Additional history exists Influenza Vaccine (#1) 2025 3, 06/05/2021, 05/30/2020, Additional history exists Zoster Vaccine Completed 08/09/2020, 05/30/2020 Pneumococcal vaccine 65+ Completed 06/19/2021, 09/2019 Insurance [employer] Care Teams Qa Tester Relationship Specialty Start Date End Date Yadiel Leon DO PCP - General Family Medicine 02/09/23
--- OUTSIDE RECORDS SUMMARY | 2025-05-27 12:45 | XMS_ITS | Clinical Summary ---
Author Organization [facility] Address [address] [place] [address] Care Team Providers Care Associate Professor Of Education Name Role Phone Unavailable Primary Care Provider [...] COVID-19 Vaccine ( - 2023-2 5 season) 2025 RSV Immunization or 60+ Years (1 - [...]
--- OUTSIDE RECORDS SUMMARY | 2025-05-27 12:45 | XMS_ITS | Clinical Summary ---
Author Organization [facility] Address [address] [place] [address] Care Team Providers Care Field Horticultural Specialty Grower Name Role Phone Virgil Shay MD Primary Care Provider Allergies No known active allergies Medications lovastatin [...] on file Legal Sex Female 3:23 AM PHYSICS TUTOR Gender Identity Not on file Sexual Orientation Not on file Last Filed Vital Signs Vital Sign Reading Time Taken Comments Blood Pressure 120/86 10/12/2016 8:19 AM PHYSICS TUTOR Pulse 88 10/12/2016 8:19 AM PHYSICS TUTOR Temperature 37.1 C (98.8 F) 10/12/2016 8:19 AM PHYSICS TUTOR Respiratory Rate - - Oxygen Saturation 95% 10/12/2016 8:19 AM PHYSICS TUTOR Inhaled Oxygen Concentration - - Weight 76.7 kg (169 lb) 10/12/2016 8:19 AM PHYSICS TUTOR Height 154.9 cm (5' 1) 10/12/2016 8:19 AM PHYSICS TUTOR Body Mass Index 31.93 10/12/2016 8:19 AM PHYSICS TUTOR Plan of Treatment Health Maintenance Due Date [...] exists OSTEOPOROSIS SCREENING 2020 INFLUENZA VACCINE (#1) 2025 9, 05/23/2018, 05/24/2017, Additional history exists RSV [...] Most Recently Relevant to Health Maintenance Insurance [facility] BLUE PREFERRED Care Teams Field Horticultural Specialty Grower Relationship Specialty Start Date End Date Virgil Shay MD [address] [place] [address] [place] [address] PCP - General Family Practice 10/12/16
== END 2025-05-27 12:41 | disposition home or self-care (01) ==
PROVIDERS: PCP Family Medicine; Visit Provider Family Medicine
DX: E27.8 Other specified disorders of adrenal gland (principal); D35.02 Benign neoplasm of left adrenal gland; D35.01 Benign neoplasm of right adrenal gland; R91.1 Solitary pulmonary nodule
CPT/HCPCS: 74150

== ENCOUNTER 2025-06-12 15:03 | Outpatient (CLI) | payer OTHER, SELFPAY ==
--- OUTSIDE RECORDS SUMMARY | 2025-02-12 06:24 | XMS_ITS | Continuity of Care Document ---
Author Organization [facility] Address [address] [facility] [address] [place] [address] Phone Care Team Providers Care System Manager Name Role Phone Jessica Hanson OD Unavailable Unavailable Allergies, Adverse Reactions, Alerts Substance Reaction Status Criticality No Known Allergies Active No Inform ation Medications Medication Instructions Dosage Effective Dates (start - stop) Status Comments Vevye 0.1 % eye drops instill 1 gtt BID OU - Active Patient's best phone number: Miebo 100 % eye drops instill 1 drop by ophthalmic route 4 times every day into both eyes for dryness - Active Please call pt at [phone] omeprazole 20 mg tablet,delayed release - Active [...] 1 capsule by oral route every month 51972 UNITS - Active L-Lysine 500 mg tablet - Active amlodipine 5 mg tablet take 1 tablet by oral route every day 5 MG - Active Procedures Procedure Date POSTOP FOLLOW-UP VISIT POSTOP FOLLOW-UP VISIT POSTOP [...] Provider Providers Copied on Encounter [facility], [address] [place] [address], [id number], tel:[phone] OPH CONSULT MU DUONG No Information 5 Valentin Lopez. [address] [facility], [facility] [address], [place], [place], [id number], [place]. tel:[phone] Referring Provider: Christel Sandra OD, [address], [place], [address] . tel:[phone] [facility], [address] [address], [place], [place], [id number], [place] tel:[phone] OPH CONSULT MU DUONG No Information 5 Eloy OD Mayela. [address] , [address], [place], [place], [address], [place]. tel:[phone] Referring Provider: Christel Sandra OD, [address] [place], [address] . tel:[phone] [facility], [address] [place] [address], [id number], tel:[phone] OPH CONSULT MU DUONG Post Op (chief complaint) Presence of intraocular lens 5 Hanson Jessica. [address] [place] [address], [address], [place], [place], [id number], [place]. tel:[phone] Referring Provider: Christel Sandra OD, [address], [place], [address] . tel:[phone] [facility], [address] [place] [address], [id number], tel:[phone] OPH CONSULT MU DUONG Post Op (chief complaint) Presence of intraocular lens 5 Hanson Jessica. [address] [place] [address], Suite [facility], [place], [place], [id number], [place]. tel:[phone] Referring Provider: Christel Sandra OD, [address], [place], [address] . tel:[phone] [facility], [address] [place] [address], [id number], tel:[phone] OPH CONSULT MU DUONG Post OP (chief complaint) Other specified postprocedural states 5 Alyson Valdez. [address], [address], [place], [place], [id number], [place]. tel:[phone] Referring Provider: Christel Sandra OD, [address], [place], [address] . tel:[phone] [facility], [address] [place] [address], [id number], tel:[phone] OPH CONSULT MU DUONG YAG PC (chief complaint) Presence of intraocular lens 5 Alyson Valdez. [address], [address], [place], [place], [address], [place]. tel:[phone] Referring Provider: Christel Sandra OD, [address], [facility], [address] . tel:[phone] [facility], [address] [place] [address], [id number], [place] tel:[phone] OPH CONSULT MU DUONG Post Op (chief complaint) Presence of intraocular lens 5 Hanson Jessica. [address] [place] [address], [address] [facility], [place], [place], [address], [place]. tel:[phone] Referring Provider: Christel Sandra OD, [address], [facility] [place], [address] . tel:[phone] [facility], [address] [place] [address], [id number], tel:[phone] OPH CONSULT MU DUONG Post op (chief complaint) Presence of intraocular lens 5 Hanson Jessica. [address] [place] [address], [address] [address], [place], [place], [id number], [place]. tel:[phone] Referring Provider: Christel Sandra OD, [address], [place], [address] . tel:[phone] [facility], [address] [place] [address], [id number], [place] tel:[phone] OPH CONSULT MU DUONG post op (chief complaint) Presence of intraocular lens 4 Hanson Jessica. [address] [place] [address], Suite [facility], [place], [place], [id number], [place]. tel:[phone] Referring Provider: Christel Sandra OD, [address], [place], [address] . tel:[phone] [facility], [address] [place] [address], [id number], [place] tel:[phone] OPH CONSULT MU DUONG Post-Op (chief complaint) Age-related nuclear cataract, left eye Jul- 4 Hansonmelania Lopez. [address] [facility], [address], [place], [place], [id number], [place]. tel:[phone] Referring Provider: Christel Sandra OD, [address], [place], [address] . tel:[phone] [facility], [address] [place] [address], [id number], tel:[phone] OPH CONSULT MU DUONG Post Op (chief complaint) Presence of intraocular lens 4 Valentin Lopez. [address] [facility], [address], [place], [place], [address], [place]. tel:[phone] Referring Provider: Christel Sandra OD, [address], [place], [address] . tel:[phone] [facility], [address] [place] [address], [id number], tel:[phone] [facility] [place] No Information 4 Alyson Valdez. [address], [address], [place], [place], [address], [place]. tel:[phone] Referring Provider: Christel Sandra OD, [address], [place], [address] . tel:[phone] [facility], [address] [place] [address], [id number], tel:[phone] [facility] [place] No Information 4 Alyson Valdez. [address], [address], [place], [place], [address], [place]. tel:[phone] Referring Provider: Christel Mosesl OD, [address], [facility], [address] . tel:[phone] [facility], [address] [place] [address], [id number], tel:[phone] OPH CONSULT MU DUONG No Information 4 Alyson Valdez. [address], [address], [place], [place], [address], . tel:[phone] Referring Provider: Christel Jocy OD, [address], [facility], [address] . tel:[phone] [facility], [address] [place] [address], [id number], tel:[phone] OPH CONSULT MU DUONG No Information 0 4 Valentin Lopez. [address] [place] [address], [address], [place], [place], [address], . tel:[phone] Referring Provider: Christel Jocy OD, [address], [place], [address] . tel:[phone] [facility], [address] [place] [address], [id number], tel:[phone] OPH CONSULT MU DUONG No Information 4 Alyson Valdez. [address], [address], [place], [place], [address], . tel:[phone] Referring Provider: Christel Jocy OD, [address], [place], [address] . tel:[phone] [facility], [address] [place] [address], [id number], tel:[phone] [facility] [place] No Information 4 Alyson Valdez. [address], [address], [place], [place], [address], . tel:[phone] Referring Provider: Christel Jocy OD, [address], [place], [address] . tel:[phone] [facility], [address] [place] [address] [place], [place], [id number], tel:[phone] OPH CONSULT MU DUONG No Information 4 Valentin Lopez. [address] [place] [address], [address], [place], [place], [address], [place]. tel:[phone] Referring Provider: Christel Sandra OD, [address], [place], [address] . tel:[phone] [facility], [address] [place] [address], [place], [place], [id number], tel:[phone] OPH CONSULT MU DUONG No Information 4 Alyson Valdez. [address], [address], [place], [place], [address], [place]. tel:[phone] Referring Provider: Christel Sandra OD, [address], [place], [address] . tel:[phone] OFFICE/OUTPA TIENT VISIT, [facility], [address] [place] [address], [place], [place], [id number], tel:[phone] OPH CONSULT MU DUONG Cataract Evaluation (chief complaint)F loaters (chief complaint)l esion (chief complaint) Age-related nuclear cataract, bilateralKerat oconjunct sicca, not specified as Sjogren's, bilateralOther vitreous opacities, bilateralDerma tochalasis of right upper eyelidDermatoc halasis of right lower eyelidDermatoc halasis of left upper eyelidDermatoc halasis of left lower eyelid 4 Alyson Valdez. [address], [address], [place], [place], [address], [place]. tel:[phone] Referring Provider: Christel Sandra OD, [address], [place], [address] . tel:[phone] Family History Family Member Type Diagnosis Age At Onset Mother Problem glaucoma Payers Payer name Insurance type Covered green party ID Authoriza tiиван(s) Ryann [id number] Social History Type Description Quantity Date Captured Comments Alcohol Use Details Unknown Caffeine Use Details Unknown Tobacco Use Status No Information Smoking Status No Information Sex Female Chief Complaint And Reason For Visit No Information Reason For Referral Reason For Referral No [...] OUOD: GILSON target: -1.50 sphOS: GILSON Target: [place] (dom eye)Referred by Dr. Christel Sandra- Post Op The 69 year old female presents for evaluation of Post Op. Pt had PRK OD 10/11. Patient notes ALLYSON was supposed to be looking for a [...] open; rather rolls it around while shut. Aqzu-Eqvd-Atlt and Systane every hour OU and Meibo QID OS only Std/D GILSON; OU ORA OU, YAG OU, Hx of myopic lasik OUOD: GILSON target: -1.50 sphOS: GILSON Target: [place] (dom eye)Referred by Dr. Christel Sandra- Post OP The 69 year old female presents for evaluation of Post OP PRK OD. Vision seems to go in and out of focus and has a FBS, thinks due to BCL. Near vision seems ok since Sx. Using Fvtn-Glrd-Srev and Systane every hour OU and Meibo QID OS only -Needs a refill of Meibo - do we have any samples s/p PCIOL OU 2023s/p YAG OU 2023 YAG PC Std/D GILSON; OU OR A OU, YAG OU, Hx of myopic lasik OUOD: GILSON target: -1.50sphOS: GILSON Target: [place] (dom eye)Referred by Dr. Christel Delatorreatient states that her vision is like looking [...] OUOD: GILSON target: -1.50 sphOS: GILSON Target: [place] (dom eye)Referred by Dr. Christel Sandra Post [...] myopic lasik OUOD: GILSON target: -1.50sph (mini [place])OS: GILSON Target: [place] (dom eye)Referred by Dr. Christel Sandra post op The patient pres ents for evaluation of GILSON Follow Up - GILSON Adjustment #2 vs. Lock In #1. She reports no feelings of discomfort other than occasional dryness. Patient has been faithfully wearing UV glasses outside, just closes blinds inside. She utilizes PF ATs TID OU.Std/D GILSON; OU ORA OU, YAG OU, Hx of myopic lasik OUOD: GILSON target: -0.75sph (mini [place])OS: GILSON Target: [place] (dom eye)Referred by Dr. Christel Sandra Post-Op [...] myopic lasik OUOD: GILSON target: -0.75sph (mini [place])OS: GILSON Target: [place] (dom eye)Referred by Dr. Christel Sandra. Post Op The 69 year old female presents for evaluation of Post Op GILSON OU. Patient reports vision she had YAG PC OU (200 shots OD, 79 shots OS); She reports fluctuating VA; OD more than OS. States J told her to expect this. OU are comfortable. Patient has been faithfully wearing UV glasses outside; just closes blinds inside. OS dominant Std/D GILSON; OUORA OU YAG OUs.p myopic lasik; JBMeae-Sfew-Pnnk TID, AT PRN; OSReferred by Dr. Christel [...] in the AM. h/o hyperopic lasik OU; 2000Referred by Dr. 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
--- NOTE | ~2025-06-12 | US_ITS ---
EXAMINATION: US thyroid DATE: 06/12/2025 15:50 INDICATION: Nontoxic single thyroid nodule TECHNIQUE: Multiple ultrasound images of the thyroid were obtained. COMPARISON: None. FINDINGS: The right thyroid lobe measures 4.1 x 1.4 x 1.4 cm. The left thyroid lobe measures 4.6 x 1.6 x 2.4 cm. There are a 3 solid wider than tall hypoechoic nodules with smooth margins and without echogenic foci at the inferior right thyroid lobe (TI-RADS 4, moderately suspicious , FNA if >=1.5 cm, annual f ollowup is >=1 cm), the largest at the left side of the thyroid isthmus measuring 2.9 cm, the next largest at the mid left thyroid measuring 2.5 cm and the smallest the inferior right thyroid measuring 1.0 cm. IMPRESSION: 1. Three TI RADS 4 nodules. Recommend ultrasound-guided biopsy of the 2.9 cm nodule at the left side of the thyroid isthmus and the 2.5 cm nodule at the mid left thyroid lobe. Reviewed, dictated and finalized at location A. IMPRESSION: 1. Three TI RADS 4 nodules. Recommend ultrasound-guided biopsy of the 2.9 cm no dule at the left side of the thyroid isthmus and the 2.5 cm nodule at the mid l eft thyroid lobe.
--- OUTSIDE RECORDS SUMMARY | 2025-06-12 17:15 | XMS_ITS | Clinical Summary ---
Author Organization [facility] Address [address] [place] [address] Care Team Providers Care Battery Vent Plug Inserter Name Role Phone Virgil Shay MD Primary Care Provider [phone] Allergies No known active allergies Medications lovastatin [...] on file Legal Sex Female 3:23 AM LOG PEELER Gender Identity Not on file Sexual Orientation Not on file Last Filed Vital Signs Vital Sign Reading Time Taken Comments Blood Pressure 120/86 10/12/2016 8:19 AM LOG PEELER Pulse 88 10/12/2016 8:19 AM LOG PEELER Temperature 37.1 C (98.8 F) 10/12/2016 8:19 AM LOG PEELER Respiratory Rate - - Oxygen Saturation 95% 10/12/2016 8:19 AM LOG PEELER Inhaled Oxygen Concentration - - Weight 76.7 kg (169 lb) 10/12/2016 8:19 AM LOG PEELER Height 154.9 cm (5' 1) 10/12/2016 8:19 AM LOG PEELER Body Mass Index 31.93 10/12/2016 8:19 AM LOG PEELER Plan of Treatment Health Maintenance Due Date [...] Most Recently Relevant to Health Maintenance Insurance [facility] BLUE PREFERRED Care Teams Battery Vent Plug Inserter Relationship Specialty Start Date End Date Virgil Shay MD [address] [place] [address] [place] [address] PCP - General Family Practice 10/12/16
--- OUTSIDE RECORDS SUMMARY | 2025-06-12 17:15 | XMS_ITS | Clinical Summary ---
Author Organization [facility] Address [address] [place] [address] Care Team Providers Care Data Processing Equipment Repairer Name Role Phone Unavailable Primary Care Provider [...] Vaccine ( - 2023-2 5 season) 2025 Influenza Adult (#1) 2025 RSV Immunization or 60+ Years (1 [...]
--- OUTSIDE RECORDS SUMMARY | 2025-06-12 17:15 | XMS_ITS | Encounter Summary ---
Author Organization [facility] Address [address] [place] [address] Care Team Providers Care Odd Job Worker Name Role Phone Yadiel Leon DO Primary Care Provider [phone] Reason for Visit * Reason Onset Date Comments Scheduling Appointments 06/12/2025 Encounter Details Date Type Department Care Team (Late st Contact Info) Description 06/12/[address] [address] Nohemi Bustillos RN Scheduling Appointments Social History Tobacco Use Types Packs/Day Years Used Date Smoking Tobacco: Never Passive Smoke Exposure: Never Smokeless Tobacco: Never Comments Unknown Sex and Gender Information Value Date Recorded Sex Assigned at Not on file Legal Sex Female 6:23 AM SECURITY TECHNICIAN Gender Identity Not on file Sexual Orientation Not on file documented as of this encounter Miscellaneous Notes * Telephone Encounter - Nohemi Bustillos RN - 06/12/2025 2:42 PM CDT PT CALLED AND LEFT WANTING SECOND OPINION ON LUNG NODULE. NC CALLED PT. PT HAD CT SCAN DONE AT [facility] AND WAS FOUND TO HAVE A 7MM NODULE IN HER LUNG. NC INSTRUCTED PT DUE TO SIZE PT NEEDS TO SEE PULMONOLOGY AND [facility] PCP FAX REFERRAL AND IMAGING REPORT. NC WAITING ON REFERRAL. documented in this encounter Plan of Treatment Not on file documented as of this encounter Visit Diagnoses Not on filedocumented in this encounter Care Teams Odd Job Worker Relationship Specialty Start Date End Date Yadiel Leon DO PCP - General Family Medicine 02/09/23 documented as of this encounter
--- OUTSIDE RECORDS SUMMARY | 2025-06-12 17:15 | XMS_ITS | Clinical Summary ---
Author Organization [facility] Address [address] [place] [address] Care Team Providers Care Seam Rubber Name Role Phone HemaYadiel diana Primary Care Provider [phone] Allergies No known active allergies Medications amLODIPine [...] Encounters Date Type Department Care Team Description 06/12/2025 Telephone [facility] [address] [place] [address] Nohemi Bustillos RN Scheduling Appointments from Last 3 Months Surgical History Surgery [...] on file Legal Sex Female 6:23 AM THAI MASSEUR Gender Identity Not on file Sexual Orientation Not on file Obstetrics History Last Filed Vital Signs Vital Sign Reading Time Taken Comments Blood Pressure 142/85 09/04/2024 6:26 PM THAI MASSEUR Pulse 108 09/04/2024 6:26 PM THAI MASSEUR Temperature 36.8 C (98.3 F) 09/04/2024 6:26 PM THAI MASSEUR Respiratory Rate 20 09/04/2024 6:26 PM THAI MASSEUR Oxygen Saturation 96% 09/04/2024 6:26 PM THAI MASSEUR Inhaled Oxygen Concentration - - Weight 67 kg (147 lb 9.6 oz) 09/04/2024 6:26 PM THAI MASSEUR Height 154.9 cm (5' 1) 09/04/2024 6:26 PM THAI MASSEUR Body Mass Index 27.89 09/04/2024 6:26 PM THAI MASSEUR Plan of Treatment Health Maintenance Due Date Last Done Comments Colon Cancer Screening-Colonoscopy 1955 Depression Screening 1955 Fall Risk Assessment 1955 Hepatitis C Screening 1955 Osteoporosis Screening-Bone Density Scan 1955 Hepatitis B Screening 1973 Breast Cancer Screening-Mammogram 04/26/2019 04/26/2018, 04/27/2017, 04/20/2016, Additional history exists Well Visit 65+ 2020 DTaP/Tdap/Td Vaccine (2 - Td or Tdap) 01/27/2022 01/28/2012 Covid-19 Vaccine (2024-2 6 season) 2025 05/05/2024, 05/29/2022, 11/30/2021, Additional history exists Influenza Vaccine (#1) 2025 , 05/26/2023, 06/05/2021, Additional history exists Zoster Vaccine Completed 08/09/2020, 05/30/2020 Pneumococcal vaccine 65+ Completed 06/19/2021, 09/2019 Insurance [employer] Care Teams Seam Rubber Relationship Specialty Start Date End Date Yadiel Leon DO PCP - General Family Medicine 02/09/23
== END 2025-06-12 15:04 | disposition home or self-care (01) ==
PROVIDERS: PCP Family Medicine; Visit Provider Family Medicine
DX: E04.2 Nontoxic multinodular goiter (principal)
CPT/HCPCS: 76536

== ENCOUNTER 2025-06-14 08:35 | Outpatient (CLI) | payer OTHER, SELFPAY ==
--- OUTSIDE RECORDS SUMMARY | 2025-02-12 06:24 | XMS_ITS | Continuity of Care Document ---
Author Organization [facility] Address [address] [facility] [address] [place] [address] Phone Care Team Providers Care Piercer Operator Name Role Phone Jessica Hanson OD Unavailable [...] dryness - Active Please call pt at [phone] omeprazole 20 mg tablet,delayed release - Active [...] 1 capsule by oral route every month 15059 UNITS - Active L-Lysine 500 mg tablet [...] Providers Copied on Encounter [facility], [address] [place] [address], [id number], tel:[phone] OPH CONSULT MU DUONG No Information 5 Valentin Lopez. [address] [facility] [address], [place], [place], [id number], [place]. tel:[phone] Referring Provider: Christel Sandra OD, [address], [place], [address] . tel:[phone] [facility], [address] [address], [place], [place], [id number], [place] tel:[phone] OPH CONSULT MU DUONG No Information 5 Eloy OD Mayela. [address] , [address], [place], [place], [id number], [place]. tel:[phone] Referring Provider: Christel Sandra OD, [address] [place], [address] . tel:[phone] [facility], [address] [place] [address], [id number], tel:[phone] OPH CONSULT MU DUONG Post Op (chief complaint) Presence of intraocular lens 5 Hanson Jessica. [address] [place] [address], [address], [place], [place], [id number], [place]. tel:[phone] Referring Provider: Christel Sandra OD, [address], [place], [address] . tel:[phone] [facility], [address] [place] [address], [id number], tel:[phone] OPH CONSULT MU DUONG Post Op (chief complaint) Presence of intraocular lens 5 Hanson Jessica. [address] [place] [address], [address] [facility], [place], [place], [id number], [place]. tel:[phone] Referring Provider: Christel Sandra OD, [address], [place], [address] . tel:[phone] [facility], [address] [place] [address], [id number], tel:[phone] OPH CONSULT MU DUONG Post OP (chief complaint) Other specified postprocedural states 5 Alyson Valdez. [address], [address], [place], [place], [id number], [place]. tel:[phone] Referring Provider: Christel Sandra OD, [address], [place], [address] . tel:[phone] [facility], [address] [place] [address], [id number], tel:[phone] OPH CONSULT MU DUONG YAG PC (chief complaint) Presence of intraocular lens 5 Alyson Valdez. [address], [address], [place], [place], [id number], [place]. tel:[phone] Referring Provider: Christel Sandra OD, [address], [facility], [address] . tel:[phone] [facility], [address] [place] [address], [id number], [place] tel:[phone] OPH CONSULT MU DUONG Post Op (chief complaint) Presence of intraocular lens 5 Hanson Jessica. [address] [place] [address], [address] [facility], [place], [place], [id number], [place]. tel:[phone] Referring Provider: Christel Sandra OD, [address], [place], [address] . tel:[phone] [facility], [address] [place] [address], [id number], tel:[phone] OPH CONSULT MU DUONG Post op (chief complaint) Presence of intraocular lens 5 Hanson Jessica. [address] [place] [address], [address] [address], [place], [place], [id number], [place]. tel:[phone] Referring Provider: Christel Sandra OD, [address], [place], [address] . tel:[phone] [facility], [address] [place] [address], [id number], [place] tel:[phone] OPH CONSULT MU DUONG post op (chief complaint) Presence of intraocular lens 4 Hanson Jessica. [address] [place] [address], [address] [facility], [place], [place], [id number], [place]. tel:[phone] Referring Provider: Christel Sandra OD, [address], [place], [address] . tel:[phone] [facility], [address] [place] [address], [id number], [place] tel:[phone] OPH CONSULT MU DUONG Post-Op (chief complaint) Age-related nuclear cataract, left eye Jul- 4 Hansonmelania Lopez. [address], [address], [place], [place], [id number], [place]. tel:[phone] Referring Provider: Christel Sandra OD, [address], [place], [address] . tel:[phone] [facility], [address] [place] [address], [id number], tel:[phone] OPH CONSULT MU DUONG Post Op (chief complaint) Presence of intraocular lens 4 Valentin Lopez. [address], [address], [place], [place], [id number], [place]. tel:[phone] Referring Provider: Christel Sandra OD, [address], [place], [address] . tel:[phone] [facility], [address] [place] [address], [id number], tel:[phone] [facility] [place] No Information 4 Alyson Valdez. [address], [address], [place], [place], [id number], [place]. tel:[phone] Referring Provider: Christel Sandra OD, [address], [place], [address] . tel:[phone] [facility], [address] [place] [address], [id number], tel:[phone] [facility] [place] No Information 4 Alyson Valdez. [address], [address], [place], [place], [id number], [place]. tel:[phone] Referring Provider: Christel Mosesl OD, [address], [facility], [address] . tel:[phone] [facility], [address] [place] [address], [id number], tel:[phone] OPH CONSULT MU DUONG No Information 4 Alyson Valdez. [address], [address], [place], [place], [id number], . tel:[phone] Referring Provider: Christel Jocy OD, [address], [facility], [address] . tel:[phone] [facility], [address] [place] [address], [id number], tel:[phone] OPH CONSULT MU DUONG No Information 0 4 Valentin Lopez. [address] [place] [address], [address], [place], [place], [id number], . tel:[phone] Referring Provider: Christel Jocy OD, [address], [place], [address] . tel:[phone] [facility], [address] [place] [address], [id number], tel:[phone] OPH CONSULT MU DUONG No Information 4 Alyson Valdez. [address], [address], [place], [place], [id number], . tel:[phone] Referring Provider: Christel Jocy OD, [address], [place], [address] . tel:[phone] [facility], [address] [place] [address], [id number], tel:[phone] [facility] [place] No Information 4 Alyson Valdez. [address], [address], [place], [place], [id number], . tel:[phone] Referring Provider: Christel Jocy OD, [address], [place], [address] . tel:[phone] [facility], [address] [place] [address] [place], [place], [id number], tel:[phone] OPH CONSULT MU DUONG No Information 4 Valentin Lopez. [address] [place] [address], [address], [place], [place], [id number], [place]. tel:[phone] Referring Provider: Christel Sandra OD, [address], [place], [address] . tel:[phone] [facility], [address] [place] [address], [place], [place], [id number], tel:[phone] OPH CONSULT MU DUONG No Information 4 Alyson Valdez. [address], [address], [place], [place], [address], [place]. tel:[phone] Referring Provider: Christel Sandra OD, [address], [place], [address] . tel:[phone] OFFICE/OUTPA TIENT VISIT, [facility], [address] [place] [address], [place], [place], [id number], tel:[phone] OPH CONSULT MU DUONG Cataract Evaluation (chief complaint)F loaters (chief complaint)l esion (chief complaint) Age-related nuclear cataract, bilateralKerat oconjunct sicca, not specified as Sjogren's, bilateralOther vitreous opacities, bilateralDerma tochalasis of right upper eyelidDermatoc halasis of right lower eyelidDermatoc halasis of left upper eyelidDermatoc halasis of left lower eyelid 4 Alyson Valdez. [address], [address], [place], [place], [id number], [place]. tel:[phone] Referring Provider: Christel Sandra OD, [address], [place], [address] . tel:[phone] Family History Family Member Type Diagnosis Age At Onset Mother Problem glaucoma Payers Payer name Insurance type Covered constitution party ID Authoriza tiиван(s) Ryann [id number] Social History Type Description Quantity Date Captured [...] OUOD: GILSON target: -1.50 sphOS: GILSON Target: [place] (dom eye)Referred by Dr. Christel Sandra- Post [...] open; rather rolls it around while shut. Nqxw-Nuby-Cwen and Systane every hour OU and Meibo QID OS only Std/D GILSON; OU ORA OU, YAG OU, Hx of myopic lasik OUOD: GILSON target: -1.50 sphOS: [place]ISON Target: [place] (dom eye)Referred by Dr. Christel Sandra- Post OP The 69 year old female presents for evaluation of Post OP PRK OD. Vision seems to go in and out of focus and has a FBS, thinks due to BCL. Near vision seems ok since Sx. Using Zqcm-Pvpg-Vymg and Systane every hour OU and Meibo QID OS only -Needs a refill of Meibo - do we have any samples s/p PCIOL OU 2023s/p YAG OU 2023 YAG PC Std/D GILSON; OU OR A OU, YAG OU, Hx of myopic lasik OUOD: GILSON target: -1.50sphOS: GIL[place] Target: [place] (dom eye)Referred by Dr. Christel Delatorreatient states [...] OUOD: GILSON target: -1.50 sphOS: G[place] Target: [place] (dom eye)Referred by Dr. Christel Sandra Post [...] myopic lasik OUOD: GILSON target: -1.50sph (mini Jay)OS: GILSON Target: [place] (dom eye)Referred by Dr. Christel Sandra post [...] myopic lasik OUOD: GILSON target: -0.75sph (mini Jay)OS: GILSON Target: [place] (dom eye)Referred by Dr. Christel Sandra Post-Op [...] myopic lasik OUOD: GILSON target: -0.75sph (mini Jay)OS: GILSON Target: [place] (dom eye)Referred by Dr. Christel Sandra. Post [...] GILSON; OUORA OU YAG OUs.p myopic lasik; MADokz-Wzee-Cxlz TID, AT PRN; OSReferred by Dr. Christel [...] OU; 2000Referred by Dr. 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
--- OUTSIDE RECORDS SUMMARY | 2025-06-14 08:42 | XMS_ITS | Clinical Summary ---
Author Organization [facility] Administrative Offices Address [address] [place] [address] Care Team Providers Care Steel Wool Machine Operator Name Role Phone Virgil Shay MD Primary [...] on file Legal Sex Female 3:23 AM MAINTENANCE CONSTRUCTION HELPER Gender Identity Not on file Sexual Orientation Not on file Last Filed Vital Signs Vital Sign Reading Time Taken Comments Blood Pressure 120/86 10/12/2016 8:19 AM MAINTENANCE CONSTRUCTION HELPER Pulse 88 10/12/2016 8:19 AM MAINTENANCE CONSTRUCTION HELPER Temperature 37.1 C (98.8 F) 10/12/2016 8:19 AM MAINTENANCE CONSTRUCTION HELPER Respiratory Rate - - Oxygen Saturation 95% 10/12/2016 8:19 AM MAINTENANCE CONSTRUCTION HELPER Inhaled Oxygen Concentration - - Weight 76.7 kg (169 lb) 10/12/2016 8:19 AM MAINTENANCE CONSTRUCTION HELPER Height 154.9 cm (5' 1) 10/12/2016 8:19 AM MAINTENANCE CONSTRUCTION HELPER Body Mass Index 31.93 10/12/2016 8:19 AM MAINTENANCE CONSTRUCTION HELPER Plan of Treatment Health Maintenance Due [...] Most Recently Relevant to Health Maintenance Insurance [facility] BLUE PREFERRED Care Teams Steel Wool Machine Operator Relationship Specialty Start Date End Date Virgil Shay MD [address] [place] [address] [place] [address] PCP - General Family Practice 10/12/16
--- OUTSIDE RECORDS SUMMARY | 2025-06-14 08:43 | XMS_ITS | Clinical Summary ---
Author Organization [facility] Address [address] [place] [address] Care Team Providers Care Loading And Unloading Supervisor Name Role Phone Unavailable Primary Care Provider [...]
--- OUTSIDE RECORDS SUMMARY | 2025-06-14 08:43 | XMS_ITS | Clinical Summary ---
Author Organization [facility] Address [address] [place] [address] Care Team Providers Care Blueprint Assembler Name Role Phone Nithya Cordon DO Primary Care Provider +1- [phone] Allergies No known active allergies Medications amLODIPine [...] Type Department Care Team Description 06/12/2025 Telephone [facility] [address] [place] [address] Nohemi Bustillos RN Scheduling Appointments [...] on file Legal Sex Female 6:23 AM PLANT ENGINEERING MANAGER Gender Identity Not on file Sexual Orientation Not on file Obstetrics History Last Filed Vital Signs Vital Sign Reading Time Taken Comments Blood Pressure 142/85 09/04/2024 6:26 PM PLANT ENGINEERING MANAGER Pulse 108 09/04/2024 6:26 PM PLANT ENGINEERING MANAGER Temperature 36.8 C (98.3 F) 09/04/2024 6:26 PM PLANT ENGINEERING MANAGER Respiratory Rate 20 09/04/2024 6:26 PM PLANT ENGINEERING MANAGER Oxygen Saturation 96% 09/04/2024 6:26 PM PLANT ENGINEERING MANAGER Inhaled Oxygen Concentration - - Weight 67 kg (147 lb 9.6 oz) 09/04/2024 6:26 PM PLANT ENGINEERING MANAGER Height 154.9 cm (5' 1) 09/04/2024 6:26 PM PLANT ENGINEERING MANAGER Body Mass Index 27.89 09/04/2024 6:26 PM PLANT ENGINEERING MANAGER Plan of Treatment Health Maintenance Due Date [...] vaccine 65+ Completed 06/19/2021, 09/2019 Insurance CIG[employer] [facility] Care Teams Blueprint Assembler Relationship Specialty Start Date End Date Nithya Cordon DO [address] [place] [address] [place] [address] PCP - General Family Medicine 06/13/25
[2025-06-14 12:49] LABS: Hematocrit 44.7 % (37.0-47.0); Hemoglobin 14.6 g/dL (12.0-15.0); Mean Corpuscular HGB Conc 32.7 g/dl (32-36); Mean Corpuscular Hemoglobin 30.9 pg (26-34); Mean Corpuscular Volume 94.5 fl (80-100); Platelet Count Result 238 k/mm3 (150-375); Red Blood Count 4.73 M/mm3 (4.2-5.4); White Blood Count 7.9 K/mm3 (4.5-10.0)
[2025-06-14 12:57] LABS: Iron 108 ug/dL (37-170)
[2025-06-14 13:15] LABS: Alanine Aminotransferase 15 U/L (6-35); Albumin Level 4.1 g/dL (3.5-5.1); Alkaline Phosphatase 87 U/L (38-126); Anion Gap 5 mmol/L (4-12); Aspartate Amino Transferase 39 U/L (14-36); Bilirubin,Total 1.7 mg/dL (0.2-1.3); Blood Urea Nitrogen 10 mg/dL (7-17); Calcium 9.2 mg/dL (8.4-10.2); Carbon Dioxide 27 mmol/L (22-30); Chloride 103 mmol/L (98-107); Cholesterol 144 mg/dL (0-200); Estimated Glomerular Filt Rate > 60; Glucose 82 mg/dL (65-110); HDL Direct 49 mg/dL; Potassium 4.8 mmol/L (3.4-5.0); Sodium 135 mmol/L (137-145); Total Protein 7.4 g/dL (6.3-8.2); Triglycerides 75 mg/dL (<150)
[2025-06-14 13:31] LABS: Percent Iron Saturation 26 % (20-50)
[2025-06-14 13:40] LABS: Ferritin 340.00 ng/mL (11.1-264)
[2025-06-14 13:46] LABS: Thyroid Stimulating Hormone 1.750 uIU/mL (0.465-4.680)
== END 2025-06-14 08:36 | disposition home or self-care (01) ==
PROVIDERS: PCP Family Medicine; Visit Provider Family Medicine
DX: E78.5 Hyperlipidemia, unspecified (principal); I10 Essential (primary) hypertension; E66.3 Overweight; D50.8 Other iron deficiency anemias
CPT/HCPCS: 36415; 80053; 80061; 82728; 83540; 83550; 84443; 85027

== ENCOUNTER 2025-07-11 12:49 | Outpatient (CLI) | payer OTHER, SELFPAY ==
--- NOTE | ~2025-07-11 | US_ITS ---
EXAMINATION: US FNA w image guidance DATE: 07/11/2025 14:08 INDICATION: Nontoxic single thyroid nodule TECHNIQUE: Prior imaging was reviewed. A time-out was performed to verify the patient's name, date of , and procedure to be performed. The procedure and its benefits and risks were discussed with the patient. Risks specifically discussed included bleeding and infection. The patient understood the risks and agreed to proceed. The neck was prepped and draped in the usual sterile manner. 5 mL 1% lidocaine was used for local anesthesia. 4 passes were made with a 25G needle into the lesion. Appropriate needle location was documented with continuous sonographic guidance. A sterile bandage was applied. There were no immediate complications. FINDINGS: The prior study as well as earlier thyroid ultrasound performed 06/15/2024, 05/28/2022 and prior thyroid biopsies performed on 06/08/2022 were reviewed. The 2.8 cm nodule in the left thyroid lobe is without significant interval change since 2021 at which time the nodule measured 2.6 cm and with pathology from biopsy performed at the time read as consistent with a benign follicular nodule. The thyroid nodule at the isthmus has increased in size since the prior nondiagnostic biopsy. It was therefore elected to proceed with biopsy of the nodule at the isthmus. Grayscale ultrasound images demonstrate biopsy needles advanced into the 2.7 x 2.7 x 1.3 cm nodule at the isthmus. IMPRESSION: 1. Successful ultrasound-guided fine needle aspiration of an enlarging 2.7 cm TI RADS 4 nodule at the thyroid isthmus. 2. Biopsy deferred of a second 2.8 cm TI RADS 4 left thyroid nodule which is without significant interval change since a prior benign biopsy in 2021. Reviewed, dictated and finalized at location A. LYST RECOVERY OPERATOR IMPRESSION: 1. Successful ultrasound-guided fine needle aspiration of an enlarging 2.7 cm TI RADS 4 nodule at the thyroid isthmus. 2. Biopsy deferred of a second 2.8 cm TI RADS 4 left thyroid nodule which is wi thout significant interval change since a prior benign biopsy in 2021.
--- OUTSIDE RECORDS SUMMARY | 2025-07-11 13:26 | XMS_ITS | Clinical Summary ---
Author Organization [facility] Administrative Offices Address [address] [place] [address] Care Team Providers Care Millinery Department Manager Name Role Phone Virgil Shay MD Primary [...] on file Legal Sex Female 3:23 AM GUARDIAN FAMILY MEMBER Gender Identity Not on file Sexual Orientation Not on file Last Filed Vital Signs Vital Sign Reading Time Taken Comments Blood Pressure 120/86 10/12/2016 8:19 AM GUARDIAN FAMILY MEMBER Pulse 88 10/12/2016 8:19 AM GUARDIAN FAMILY MEMBER Temperature 37.1 C (98.8 F) 10/12/2016 8:19 AM GUARDIAN FAMILY MEMBER Respiratory Rate - - Oxygen Saturation 95% 10/12/2016 8:19 AM GUARDIAN FAMILY MEMBER Inhaled Oxygen Concentration - - Weight 76.7 kg (169 lb) 10/12/2016 8:19 AM GUARDIAN FAMILY MEMBER Height 154.9 cm (5' 1) 10/12/2016 8:19 AM GUARDIAN FAMILY MEMBER Body Mass Index 31.93 10/12/2016 8:19 AM GUARDIAN FAMILY MEMBER Plan of Treatment Health Maintenance Due Date [...] Most Recently Relevant to Health Maintenance Insurance [facility] BLUE PREFERRED Care Teams Millinery Department Manager Relationship Specialty Start Date End Date Virgil Shay MD [address] [place] [address] [place] [address] PCP - General Family Practice 10/12/16
--- OUTSIDE RECORDS SUMMARY | 2025-07-11 13:27 | XMS_ITS | Clinical Summary ---
Author Organization [facility] Address [address] [place] [address] Care Team Providers Care Sanitation Technician Name Role Phone Unavailable Primary Care Provider [...] Scan (General) 2020 COVID-19 Vaccine ( - 2024-2 6 season) 2025 Influenza Adult (#1) 2025 RSV Immunization or 60+ Years (1 - 1-dose 75+ series) 2030 Hepatitis A Vaccines Aged Out No long er eligible based on patient's age to complete this topic Meningococcal B Vaccine Aged Out No l onger eligible based on patient's age to complete this topic Meningococcal Vaccine Aged Out No mary lay eligible based on patient's age to complete this topic RSV Immunizations Under 20 Months Aged Out No longer eligible based on patient's age to complete this topic
--- OUTSIDE RECORDS SUMMARY | 2025-07-11 13:27 | XMS_ITS | Clinical Summary ---
Author Organization [facility] Address [address] [place] [address] Care Team Providers Care Pharmacy Technician Infusion Name Role Phone AngelafabricioNithya ralph Primary Care Provider +1- [phone] Allergies No known active allergies Medications amLODIPine [...] needed for cough 21 capsule 5 Active Additional Information Patient not taking.Reported on 07/02/2025 ascorbic acid, vitamin C, 500 mg capsule Take 500 mg by mouth 3 Active calcium carb/vit D3/minerals (CALCIUM-VITAMI N D ORAL) Take by mouth 3 Active denosumab (PROLIA) 60 mg/mL syringe Inject 1 mL (60 mg total) under the skin 5 Active lysine (L-Lysine) 500 mg tablet Active psyllium 0.4 gram capsule Take 1 capsule (0.4 g total) by mouth 2 Active spironolactone (ALDACTONE) 100 mg tablet TAKE 1/2 TABLET FOR THE FIRST 10 DAYS THEN TAKE THE FULL TABLET EVERY DAY AFTER 5 Active Miebo, PF, 100 % drops instill 1 drop by ophthalmic route 4 times every day into both eyes for dryness 5 Active cycloSPORINE (Vevye) 0.1 % drops instill 1 gtt BID OU 5 Active Active Problems Problem Noted Date Diagnosed Date Solitary pulmonary nodule 07/02/2025 Arthralgia of ankle 11/28/2013 Encounters Date Type Department Care Team Description 07/02/2025 10:37 AM MIXER CRANE OPERATOR - 07/02/2025 11:59 PM MIXER CRANE OPERATOR Hospital Encounter [facility] [address] [place] [address] Chetan Tse Chi, MD Solitary pulmonary nodule Discharge Disposition: Discharge to home or self care 07/02/2025 10:00 AM MIXER CRANE OPERATOR Office Visit [facility] [address] [facility] 8th [place] [address] [place] [address] Chetan Tse Chi, MD Solitary pulmonary nodule (Primary Dx) 07/02/2025 8:26 AM MIXER CRANE OPERATOR - 07/02/2025 11:59 PM MIXER CRANE OPERATOR Hospital Encounter [facility] [address] [facility] [address] [place] [address] Solitary pulmonary nodule Discharge Disposition: Discharge to home or self care 07/02/2025 8:16 AM MIXER CRANE OPERATOR - 07/02/2025 11:59 PM MIXER CRANE OPERATOR Hospital Encounter [facility] [address] [place] [address] Lung nodules Discharge Disposition: Discharge to home or self care 07/02/2025 Orders Only [facility] [address] [facility] 8th [place] [address] [place] [address] Chetan Tse Chi, MD Solitary pulmonary nodule (Primary Dx) 07/02/2025 Orders Only [facility] Scheduling [address] [place] [address] Chetan Tse Chi, MD Lung nodules (Primary Dx) 06/27/2025 [place] [id number] Reshma Larsen RN Requesting information 06/19/[address] [address] Mary Jo Faye RN Appointment/Schedule s 06/12/[address] [address] Nohemi Bustillos RN Scheduling Appointments from Last 3 Months Surgical History Surgery Date Site/Laterality Comments LASIK HYSTERECTOMY Medical History Medical History Date Comments Hypertension Hypercholesteremia Osteoporosis Family History Medical History Relation Name Comments Cancer Brother Hypertension Brother Stroke Brother Diabetes Father Hypertension Father Stroke Father Family history of cerebrovascular accident - (Added by TW Conv) Cancer Mother Family history of malignant neoplasm - (Added by TW Conv) Cancer Sister 1 Family history of malignant neoplasm - (Added by TW Conv) Hypertension Sister 1 Mental illness Sister 2 Chronic menta l illness - (Added by TW Conv) Relation Name Status Comments Brother Father Mother Sister 1 Sister 2 Social History Tobacco Use Types Packs/Day Years Used Date Smoking Tobacco: Never Passive Smoke Exposure: Never Smokeless Tobacco: Never Tobacco Cessation:Counseling Given: No Comments Unknown Sex and Gender Information Value Date Recorded Sex Assigned at Not on file Legal Sex Female 6:23 AM MIXER CRANE OPERATOR Gender Identity Not on file Sexual Orientation Not on file Last Filed Vital Signs Vital Sign Reading Time Taken Comments Blood Pressure 114/75 07/02/2025 9:08 AM MIXER CRANE OPERATOR Pulse 96 07/02/2025 9:08 AM MIXER CRANE OPERATOR Temperature 36.9 C (98.4 F) 07/02/2025 9:08 AM MIXER CRANE OPERATOR Respiratory Rate 18 07/02/2025 9:08 AM MIXER CRANE OPERATOR Oxygen Saturation 98% 07/02/2025 9:08 AM MIXER CRANE OPERATOR Inhaled Oxygen Concentration - - Weight 61.7 kg (136 lb) 07/02/2025 9:08 AM MIXER CRANE OPERATOR Height 153.7 cm (5' 0.5) 07/02/2025 9:08 AM MIXER CRANE OPERATOR Body Mass Index 26.12 07/02/2025 9:08 AM MIXER CRANE OPERATOR Plan of Treatment Health Maintenance Due [...] Procedure Name Priority Date/Time Associated Diagnosis Comments CT CHEST WO CONTRAST Schedule Routine, Read Routine (OP Routine) 07/02/2025 11:02 AM MIXER CRANE OPERATOR Solitary pulmonary nodule PULMONARY FUNCTION TEST (PFT) Routine 07/02/2025 8:50 AM MIXER CRANE OPERATOR Solitary pulmonary nodule XR CHEST PA LATERAL 2 VIEWS Schedule Routine, Read Routine (OP Routine) 07/02/2025 8:24 AM MIXER CRANE OPERATOR Lung nodules from Last 3 Months Results * CT Chest WO Contrast (07/02/2025 11:02 AM MIXER CRANE OPERATOR) Anatomical Region Laterality Modality Body N/A Computed Tomogra phy 07/02/2025 11:3 7 AM MIXER CRANE OPERATOR Impressions 07/02/2025 11:37 AM MIXER CRANE OPERATOR 7 mm left lower lobe nodule abutting the diaphragm, possibly subpleural lymph node. 4 mm right lower lobe nodule. Electronically signed by: Vishal Lester M.D. Narrative 07/02/2025 11:37 AM MIXER CRANE OPERATOR EXAMINATION: CT of the chest without contrast HISTORY: Lung nodule. TECHNIQUE: Computed tomography of the chest was performed without contrast according to standard protocol. COMPARISON: None available. FINDINGS: There is no lymphadenopathy in the chest. The heart size is normal. No pericardial effusion. There are atherosclerotic calcifications in the aorta. 4 mm right lower lobe nodule (series 2 image 71). 7 mm left lower lobe nodule abutting the diaphragm (series 2 image 94).. There is no pleural effusion or pneumothorax. The imaged upper abdomen demonstrates cholelithiasis and a 1.5 cm right adrenal adenoma. There is also a 1.1 cm left adrenal adenoma.. Bones are unremarkable for age. Procedure Note Vishal Lester MD - 07/02/2025 EXAMINATION: CT of the chest without contrast HISTORY: Lung nodule. TECHNIQUE: Computed tomography of the chest was performed without contrast according to standard protocol. COMPARISON: None available. FINDINGS: There is no lymphadenopathy in the chest. The heart size is normal. No pericardial effusion. There are atherosclerotic calcifications in the aorta. 4 mm right lower lobe nodule (series 2 image 71). 7 mm left lower lobe nodule abutting the diaphragm (series 2 image 94).. There is no pleural effusion or pneumothorax. The imaged upper abdomen demonstrates cholelithiasis and a 1.5 cm right adrenal adenoma. There is also a 1.1 cm left adrenal adenoma.. Bones are unremarkable for age. IMPRESSION: 7 mm left lower lobe nodule abutting the diaphragm, possibly subpleural lymph node. 4 mm right lower lobe nodule. Electronically signed by: Vishal Lester M.D. Chetan Tse MD IM CT PROCEDURES Final Re sult * Pulmonary Function Test - (07/02/2025 8:50 AM MIXER CRANE OPERATOR) FVC PRE 2.51 L [facility] FVC %PRE PRED 105 % [facility] FVC POST 2.83 L [facility] FVC %POST PRED 119 % [facility] FEV1 PRE 1.99 L [facility] FEV1 %PRE PRED 106 % [facility] FEV1 POST 2.16 L [facility] FEV1 %POST PRED 115 % [facility] FEV1/FVC PRE 79.4 % [facility] FEV1/FVC POST 76.4 % [facility] FRC PL PRE 3.03 L [facility] FRC PL %PRE PRED 118 % [facility] RV PRE 2.25 L [facility] RV %PRE PRED 111 % [facility] TLC PRE 4.99 L [facility] TLC %PRE PRED 110 % [facility] DLCO PRE 16.9 ml/min/mmH g [facility] DLCO %PRE PRED 97 % [facility] Anatomical Region Laterality Modality PFT 07/02/2025 8:32 AM MIXER CRANE OPERATOR Narrative 07/02/2025 10:58 AM MIXER CRANE OPERATOR PFT performed at:->[facility] Adult PFT [facility]- [id number] Procedure:->Complete/Full PFT Standard:->Spirometry, Spirometry w/bronchodilator, DLCO and Lung Volumes Pulmonary Function Test Interpretation SPIROMETRY: Spirometry did not meet standards of acceptability and reproducibility. This diminishes the reliability of the results. Spirometry is normal. There is no significant improvement after inhaling a single dose of albuterol. The inspiratory loop is suggestive of submaximal effort. LUNG VOLUMES: TLC measured by plethysmography is normal. DLCO: The diffusing capacity is normal. Impression: The testing did not meet standards of acceptability and reproducibility. This diminishes the reliability of the results. There is no ventilatory defect. There is no impairment of alveolar gas exchange by DLCO. The attending pulmonary physician certifies a physician presence in the [facility] during the administration of aerosolized bronchodilator. The attending pulmonary physician certifies that he/she has reviewed and interpreted the graphic and numerical data of this pulmonary function study and agrees with the written final report. The lower limit of normal for PaO2 and %HbO2 is age dependent. However, the [facility] Pul[facility] Function [facility] defines hypoxemia as a PaO2 <56 mm Hg or a %HbO2 <89%. Starting on August of 2024 the [facility] Pulmonary Function Laboratory utilizes race neutral GLI Global normative equations. us Nithya Cordon DO PFT ORDERABLES Final Resu lt * XR Chest Pa Lateral 2 Views (07/02/2025 8:24 AM MIXER CRANE OPERATOR) Anatomical Region Laterality Modality Body, Chest N/A Computed Radiogr aphy 07/02/2025 9:30 AM MIXER CRANE OPERATOR Impressions 07/02/2025 9:30 AM MIXER CRANE OPERATOR 2 views of the chest are submitted for interpretation. No comparison is available. The lungs are clear. There is no consolidation pleural effusion or pneumothorax. The heart size are normal. Aortic arch atherosclerosis is noted. Electronically signed by: Wing Stone M.D. Narrative 07/02/2025 9:30 AM MIXER CRANE OPERATOR EXAMINATION: 2 view chest radiograph Procedure Note Wing Stone MD - 07/02/2025 EXAMINATION: 2 view chest radiograph IMPRESSION: 2 views of the chest are submitted for interpretation. No comparison is available. The lungs are clear. There is no consolidation pleural effusion or pneumothorax. The heart size are normal. Aortic arch atherosclerosis is noted. Electronically signed by: Wing Stone M.D. Chetan Tse MD IMG XR PROCEDURES Final Re sult from Last 3 Months Insurance CIG[employer] CIGNA Care Teams Pharmacy Technician Infusion Relationship Specialty Start Date End Date Nithya Cordon DO [address] [place] [address] DR CORDOVA [address] [place] [address] PCP - General Family Medicine 06/13/25
--- NOTE | 2025-07-11 14:01 | CY_PTH ---
PATIENT: Mireya Duarte LOC: ANHIMG U#:[id number] AGE/SX: 70/F ROOM: RE07/11/[address]: Nithya Cordon DO : 1955 BED: DIS: 07/11/2025 SPEC #: [id number] RECD: 07/11/25 14:04 STATUS: MARIA C REKlaus #: [id number] LEELA: 07/11/25 14:[address]: Nithya Cordon DEPT: [facility] Cytology RECD BY: Clarita Clements Tissues: A - FNA Thyroid Procedures: Hematoxylin and Eosin Stain Cell Block Fine Needle Aspiration Evaluation Fine Needle Aspiration Pathologist
== END 2025-07-11 12:50 | disposition home or self-care (01) ==
PROVIDERS: PCP Family Medicine; Visit Provider Family Medicine
DX: E04.1 Nontoxic single thyroid nodule (principal)
CPT/HCPCS: 10005; 88172; 88173; 88305